=== PATIENT | male | born 1950 | race Caucasian/White ===

== ENCOUNTER 2021-02-06 10:13 | Outpatient (CLI) | payer MEDICARE, SELFPAY | END 2021-02-06 10:14 | disposition home or self-care (01) | LOC: ANHCOVIDVC 10:13 | PROVIDERS: PCP Internal Medicine | DX: Z23 Encounter for immunization (principal) | CPT/HCPCS: 0001A; 91300 ==

== ENCOUNTER 2021-02-27 10:18 | Outpatient (CLI) | payer MEDICARE, SELFPAY | END 2021-02-27 10:19 | disposition home or self-care (01) | LOC: ANHCOVIDVC 10:18 | PROVIDERS: PCP Internal Medicine | DX: Z23 Encounter for immunization (principal) | CPT/HCPCS: 0002A; 91300 ==

== ENCOUNTER 2021-04-11 08:01 | Outpatient (CLI) | payer MEDICARE, SELFPAY ==
--- NOTE | ~2021-04-11 | US_ITS ---
EXAMINATION: US art doppler w jose SY BI DATE: 04/11/2021 09:06 INDICATION: No detectable pulses at the ankles with peripheral vascular disease risk factors of diabe татьяна, hypercholesterolemia, hypertension and smoking. TECHNIQUE: Segmental pressures and plethysmographic and Doppler waveforms of the brachial and lower e xtremity arteries were obtained. COMPARISON: None. FINDINGS: Right and left brachial artery pressures of 128 mm Hg and 131 mm Hg, respectively, are concordant (no rmal difference <= 30 mmHg). The right and left high-thigh pressure indices are 1.03 and 0.44, respec tively (normal > 1.2). The right ankle-brachial index (JOMAR) is 0.64 (normal >= 0.9-1). The right great toe-brachial index (T BI) is 0.77 (normal >= 0.6-0.8). The right lower extremity segmental pressure gradients are normal (n ormal gradients <= 20-30 mmHg between adjacent levels on the same leg or the same levels on the two l egs). Arterial waveforms are biphasic with brisk systolic upstrokes throughout. The left JOMAR and TBI were unable to be determined due to no audible waveforms. The left lower extremi ty segmental pressure gradients are normal between levels throughout the left lower limb but with sig nificant gradient relative to the contralateral right lower limb with significantly decreased pressur es on the left at each level when compared with the right lower limb. The Arterial waveforms are bip hasic with brisk systolic upstrokes at the left common femoral artery with parvus and tardus waveform s in the more distal arteries with delayed upstrokes and progressive broadening and decreased heights of the systolic peaks in the more distal arteries. IMPRESSION: 1. Severe arterial occlusive disease to the left lower limb with severely decreased left high thigh p ressure index and unmeasurable left JOMAR and TBI. Based upon waveform analysis this appears to occur b etween the sites of measurement at the right common femoral artery and proximal right femoral artery. 2. Arterial occlusive disease to the right lower limb with moderately decreased right JOMAR but still n ormal TBI Reviewed, dictated and finalized at location A. IMPRESSION: 1. Severe arterial occlusive disease to the left lower limb with severely decre ased left high thigh pressure index and unmeasurable left JOMAR and TBI. Based up on waveform analysis this appears to occur between the sites of measurement at the right common femoral artery and proximal right femoral artery. 2. Arterial occlusive disease to the right lower limb with moderately decreased right JOMAR but still normal TBI
== END 2021-04-11 08:02 | disposition home or self-care (01) ==
PROVIDERS: PCP Internal Medicine; Visit Provider Podiatrist Foot & Ankle Surgery
DX: I73.9 Peripheral vascular disease, unspecified (principal)
CPT/HCPCS: 93923

== ENCOUNTER 2022-05-08 21:31 | Inpatient (IN) | payer MEDICARE, SELFPAY ==
--- NOTE | ~2022-05-08 | XR_ITS ---
EXAMINATION: XR chest 1V portable Exam Date/Time: 05/08/2022 22:23 CDT HISTORY: SOB, CHF EXACERBATION TODAY HX COPD,HTN, SMOKER Comparison: 11/04/2019. RESULT: Lines, tubes, and devices: None. Lungs and pleura: Senescent and likely emphysematous change. Cardiomediastinal silhouette: Stable cardiomediastinal silhouette. Other: No acute osseous or upper abdominal finding. IMPRESSION: No acute cardiopulmonary process. Reviewed, dictated and finalized at location K.
[2022-05-08 21:36] VITALS: BP 134/90; PULSE 123; RESP 36; TEMP 36.9; O2SAT 99
--- NOTE | 2022-05-08 21:39 | ECG_ITS ---
Measurements Intervals [place] Rate: 120 P: 72 FL: 189 QRS: -38 QRSD: 90 T: 73 QT: 303 QTc: 429 Interpretive Statements SINUS TACHYCARDIA INDETERMINATE AXIS NO PREVIOUS ECG AVAILABLE FOR COMPARISON Electronically Signed On 05-09-2022 20:31:44 CDT by Francesca Sahu M.D.
[2022-05-08 21:44] VITALS: O2SAT 99
[2022-05-08 21:47] VITALS: PULSE 128
[2022-05-08 21:48] VITALS: BP 134/90; PULSE 125; RESP 36; O2SAT 99
--- NOTE | 2022-05-08 21:49 | ED.SOB ---
HPI - SOB/Dyspnea General Chief Complaint: Shortness of Breath/Dyspnea <Opal Ledbetter MD - Last Filed: 05/08/22 22:39> Stated Complaint: resp distress, tripodding, chf overload <Opal Ledbetter MD - Last Filed: 05/08/22 22:39> Time Seen by Provider: 05/08/22 21:43 <Opal Ledbetter MD - Last Filed: 05/08/22 22:39> Source: patient and EMS <Opal Ledbetter MD - Last Filed: 05/08/22 22:39> Mode of arrival: EMS <Opal Ledbetter MD - Last Filed: 05/08/22 22:39> Limitations: no limitations <Opal Ledbetter MD - Last Filed: 05/08/22 22:39> History of Present Illness HPI Narrative: This is a 71 year old male with history of COPD and hypertension who presents for evaluation of shortness of breath. Patient reports he developed productive cough with clear sputum since noon today. He reports his cough continued to get worse and he was having shortness of breath. EMS reports patient's family found patient in respiratory distress in tripod position. Patient's oxygen saturation was 72% on room. EMS placed patient on CPAP. Patient denies chest pain, nausea, vomiting. He reports runny nose. He is unsure of fever. He denies leg swelling. <Opal Ledbetter MD - Last Filed: 05/08/22 22:39> MD elicited complaint: shortness of breath <Opal Ledbetter MD - Last Filed: 05/08/22 22:39> Pertinent past history: COPD and congestive heart failure <Opal Ledbetter MD - Last Filed: 05/08/22 22:39> Related Data Home Medications: Home Medications Medication Instructions Recorded Confirmed aspirin 81 mg tablet,delayed 81 mg PO DAILY 11/11/19 09/19/21 release (Adult Low Dose Aspirin) cholecalciferol (vitamin D3) 1,250 50,000 unit PO WEEKLY 11/11/19 09/19/21 mcg (50,000 unit) capsule ezetimibe 10 mg tablet (Zetia) 10 mg PO DAILY 11/11/19 03/13/21 sildenafil 100 mg tablet (Viagra) 100 mg PO DAILY PRN 11/11/19 03/13/21 ramipril 5 mg capsule 5 mg PO DAILY 09/06/20 09/19/21 simvastatin 40 mg tablet 40 mg PO DAILY 09/06/20 09/19/21 carvedilol 6.25 mg tablet 12.5 mg PO ONCE 09/19/21 09/19/21 rivaroxaban 2.5 mg tablet (Xarelto) 2.5 mg PO BID 09/19/21 09/19/21 <Opal Ledbetter MD - Last Filed: 05/08/22 22:39> Allergies/Adverse Reactions: Allergies Allergy/AdvReac Type Severity Reaction Status Date / Time No Known Allergies Allergy Verified 05/08/22 21:49 <Opal Ledbetter MD - Last Filed: 05/08/22 22:39> Review of Systems Review of Systems: All systems reviewed & are unremarkable except as noted in HPI and below <Opal Ledbetter MD - Last Filed: 05/08/22 22:39> Constitutional: Constitutional: Denies chills, Reports fatigue and Denies fever(s) <Opal Ledbetter MD - Last Filed: 05/08/22 22:39> ENT: Reports nasal congestion <Opal Ledbetter MD - Last Filed: 05/08/22 22:39> Cardiovascular: Cardiovascular: Denies chest pain and Denies rapid heart rate <Opal Ledbetter MD - Last Filed: 05/08/22 22:39> Respiratory: Respiratory: Reports chest congestion, Reports cough and Reports dyspnea <Opal Ledbetter MD - Last Filed: 05/08/22 22:39> Gastrointestinal: Gastrointestinal: Denies abdominal pain, Denies bloating, Denies constipation and Denies heartburn <Opal Ledbetter MD - Last Filed: 05/08/22 22:39> [facility] Past Medical History Medical History: Medical History (Updated 05/09/22 @ 02:20 by Mariella Pino MD) COPD mixed type Essential (primary) hypertension Gastro-esophageal reflux disease without esophagitis <Opal Ledbetter MD - Last Filed: 05/08/22 22:39> Surgical History Surgical History: Surgical History (Updated 05/08/22 @ 21:57 by Opal Ledbetter MD) Hx of tonsillectomy <Opal Ledbetter MD - Last Filed: 05/08/22 22:39> Family History Family History: Family History Mother Patient's mother is Father Patient
[2022-05-08 21:50] LABS: Alveolar/Arterial O2 Gradient 636.1 mmHg; Base Excess ABG -3.2 mEq/l (+/-2.0); Carboxyhemoglobin 2.5 % THb (0-2.0); Fractional Inspired Oxygen 100 %; HCO3 ABG 20.5 mEq/l (22.0-26.0); Methemoglobin ABG 0.3 %THb (0-1.5); Oxygen Content ABG 14.5 %vol (16.0-22.0); PCO2 ABG 32.8 mmHg (35.0-45.0); PO2 FiO2 Ratio Arterial Blood 0.44 %; Reduced Hemoglobin 20.6 %THb (0-5.0); Total Hemoglobin 13.5 g/dL (12.0-18.0); pH ABG 7.413 (7.350-7.450)
[2022-05-08 21:52] LABS: Oxygen Saturation ABG 81.2 % (95.0-100.0); PO2 ABG 44.1 mmHg (80.0-100.0)
[2022-05-08 21:53] LABS: Device NON-REBREATHER MASK; Modified Allen's Test Pass; Oxyhemoglobin 76.6 % THb (90.0-100.0); Site Drawn LEFT RADIAL
--- NOTE | 2022-05-08 21:53 | ED.SOB ---
HPI - SOB/Dyspnea General Chief Complaint: Shortness of Breath/Dyspnea Stated Complaint: resp distress, tripodding, chf overload Time Seen by Provider: 05/08/22 21:43 Source: patient and EMS Mode of arrival: EMS Limitations: no limitations Related Data Home Medications Medication Instructions Recorded Confirmed aspirin 81 mg tablet,delayed 81 mg PO DAILY 11/11/19 09/19/21 release (Adult Low Dose Aspirin) cholecalciferol (vitamin D3) 1,250 50,000 unit PO WEEKLY 11/11/19 09/19/21 mcg (50,000 unit) capsule ezetimibe 10 mg tablet (Zetia) 10 mg PO DAILY 11/11/19 03/13/21 sildenafil 100 mg tablet (Viagra) 100 mg PO DAILY PRN 11/11/19 03/13/21 ramipril 5 mg capsule 5 mg PO DAILY 09/06/20 09/19/21 simvastatin 40 mg tablet 40 mg PO DAILY 09/06/20 09/19/21 carvedilol 6.25 mg tablet 12.5 mg PO ONCE 09/19/21 09/19/21 rivaroxaban 2.5 mg tablet (Xarelto) 2.5 mg PO BID 09/19/21 09/19/21 Allergies Allergy/AdvReac Type Severity Reaction Status Date / Time No Known Allergies Allergy Verified 05/08/22 21:49 [facility] Family History Family History Mother Patient's mother is Father Patient's father is Sibling Family history of malignant neoplasm of ovary Social History Social History Smoking packs per day: 0.5 Smoking cigarettes per day: 10.0 Years smoked: 40 Smoking pack-years: 20.00 Smoking status: Current every day smoker Tobacco type: cigarettes Second hand tobacco smoke exposure: No Alcohol intake: current Course Vital Signs Vital signs: Vital Signs Temperature 98.5 F 05/08/22 21:36 Pulse Rate 123 H 05/08/22 21:36 Respiratory Rate 36 H 05/08/22 21:36 Blood Pressure 134/90 05/08/22 21:36 Pulse Oximetry 99 05/08/22 21:36 Oxygen Delivery BiPAP 05/08/22 21:36 Oxygen Flow Rate 10 05/08/22 21:36 Temperature 98.5 F 05/08/22 21:36 Pulse Rate 125 H 05/08/22 21:48 Respiratory Rate 36 H 05/08/22 21:48 Blood Pressure 134/90 05/08/22 21:48 Pulse Oximetry 99 05/08/22 21:48 Oxygen Delivery BiPAP 05/08/22 21:44 Oxygen Flow Rate 10 05/08/22 21:44 MDM - SOB/Dyspnea Lab Data Labs: Lab Results 05/08/22 Range/Units 21:48 Methemoglobin 0.3 (0-1.5) %THb ABG Data ABG results: 05/08/22 21:48 ABG pH 7.413 ABG pCO2 32.8 L ABG PO2/FiO2 Ratio 0.44 ABG HCO3 20.5 L ABG O2 Content 14.5 L ABG Base Excess -3.2 A-a Gradient 636.1 Carboxyhemoglobin 2.5 H Reduced Hemoglobin 20.6 H Total Hemoglobin 13.5 FiO2 100 Discharge Plan Discharge Prescriptions: No Action aspirin [Adult Low Dose Aspirin] 81 mg tablet,delayed release (DR/EC) 81 mg PO DAILY sildenafil [Viagra] 100 mg tablet 100 mg PO DAILY PRN cholecalciferol (vitamin D3) 50,000 unit capsule 50,000 unit PO WEEKLY ezetimibe [Zetia] 10 mg tablet 10 mg PO DAILY carvedilol 6.25 mg tablet 12.5 mg PO ONCE ramipril 5 mg capsule 5 mg PO DAILY simvastatin 40 mg tablet 40 mg PO DAILY Xarelto 2.5 mg tablet 2.5 mg PO BID levocetirizine [Xyzal] 5 mg tablet 5 mg PO DAILY Qty: 90 1RF budesonide-formoterol [Symbicort] 160-4.5 mcg/actuation HFA aerosol inhaler 2 puff inhalation Q12H Qty: 10.2 3RF betamethasone valerate 0.1 % cream 1 applic TOPICAL BID Qty: 45 1RF Breo Ellipta 200-25 mcg/dose blister with device 1 inh inhalation DAILY Qty: 60 1RF esomeprazole magnesium [Nexium] 40 mg capsule,delayed release(DR/EC) 40 mg PO DAILY Qty: 30 5RF Follow-up/Referrals: Victoriano Durand, [Primary Care Provider] -
[2022-05-08 21:56] LABS: Basophils Absolute Auto 0.1 K/mm3 (0.0-0.1); Basophils Percent Auto 0.4 % (0.2-1.2); Eosinophils Absolute Auto 0.1 K/mm3 (0-0.3); Eosinophils Percent Auto 0.3 % (0-4.4); Hematocrit 37.1 % (42.0-52.0); Hemoglobin 12.4 g/dL (14.0-18.0); Immature Granulocyte Absolute 0.15 K/mm3 (0.00-0.031); Immature Granulocyte Percent A 0.7 % (0-0.5); Lymphocytes Absolute Auto 1.06 K/mm3 (0.9-3.2); Lymphocytes Percent Auto 5.1 % (18.3-44.2); Mean Corpuscular HGB Conc 33.4 g/dl (32-36); Mean Corpuscular Hemoglobin 31.9 pg (26-34); Mean Corpuscular Volume 95.4 fl (80-100); Mean Platelet Volume 8.9 fl (7.4-10.4); Monocytes Absolute Auto 1.6 K/mm3 (0.1-0.6); Monocytes Percent Auto 7.7 % (2.6-8.5); Neutrophils Absolute Auto 17.8 K/mm3 (1.3-6.7); Neutrophils Percent Auto 85.8 % (45.5-73.1); Platelet Count Result 445 k/mm3 (150-375); Red Blood Count 3.89 M/mm3 (4.6-6.20); Red Cell Distribution Width 13.4 % (11.5-14.5); White Blood Count 20.8 K/mm3 (4.5-10.0)
[2022-05-08 21:59] VITALS: PULSE 112; RESP 28
[2022-05-08] MEDS: ALBUTEROL SULFATE NEB 2.5 MG/3 ML INH 10 MG INHALATION (22:00)
[2022-05-08] MEDS: IPRATROPIUM BR 0.02% INH SOLN 0.5 MG/2.5 ML VIAL 1 MG INHALATION (22:00)
[2022-05-08 22:06] LABS: INR 1.1; Prothrombin Time 13.9 Seconds (11.1-14.7)
[2022-05-08 22:07] LABS: Alanine Aminotransferase 11 U/L (6-50); Albumin Level 4.4 g/dL (3.5-5.1); Alkaline Phosphatase 90 U/L (38-126); Anion Gap 7 mmol/L (8-16); Aspartate Amino Transferase 20 U/L (17-59); Bilirubin,Total 0.9 mg/dL (0.2-1.3); Blood Urea Nitrogen 9 mg/dL (9-20); Calcium 9.4 mg/dL (8.4-10.2); Carbon Dioxide 26 mmol/L (22-30); Chloride 94 mmol/L (98-107); Estimated CRCL calculation 68 ml/min; Estimated Glomerular Filt Rate > 60; Glucose 130 mg/dL (65-110); Partial Thromboplastin Time 36.2 SECONDS (22.3-36.8); Sodium 127 mmol/L (137-145)
[2022-05-08 22:07] LABS: Lactic Acid Reflex 1.5 mmol/L (0.7-2.0)
[2022-05-08 22:15] LABS: NT Pro B Type Natriuretic Pept 299 pg/mL (5-100)
[2022-05-08] MEDS: methylPREDNISolone SOD SUCC 125 MG VIAL IV PUSH (22:17)
[2022-05-08 22:38] LABS: Troponin I < 0.012 ng/mL (0.000-0.034)
[2022-05-08 22:38] LABS: SARS-CoV-2 RNA PCR Negative
[2022-05-08] MEDS: LACTATED RINGERS 1,000 ML 999 ML IV CONT (22:53)
[2022-05-08 23:12] VITALS: PULSE 105; RESP 21
[2022-05-09] VITALS (16 sets, daily range): BP systolic 112–131; BP diastolic 53–66; PULSE 76–113; RESP 15–23; TEMP 36.7–37.1; O2SAT 93–100; BMI 18.3
[2022-05-09 01:29] LABS: Influenza A QL RT-PCR Negative (Negative); Influenza B QL RT-PCR Negative (Negative)
[2022-05-09] MEDS: ALBUTEROL SULFATE NEB 2.5 MG/3 ML INH 5 MG INHALATION ×4 (01:58→19:27)
[2022-05-09] MEDS: IPRATROPIUM BR 0.02% INH SOLN 0.5 MG/2.5 ML VIAL INHALATION ×4 (01:58→19:27)
--- NOTE | 2022-05-09 02:25 | ADMGEN ---
This patient, Nikita Meyers, was admitted to [address] [place] [address] Room [facility] at 0225. Patient/family oriented to hospital policies and general routines including ID bracelet, bed and alarms, visiting hours, pain management, procedures, bathroom and other care routines, personal items, smoking policy, room service/diet, and visiting hours. Information on how to activate the Rapid Response Team has been discussed. Patient/Family are encouraged to report perceived risks to care and to ask questions if they do not understand what they are told or what they should do.
[2022-05-09] MEDS: methylPREDNISolone SOD SUCC 125 MG VIAL 60 MG IV PUSH (05:30)
--- NOTE | 2022-05-09 10:24 | PM.IMHP ---
H&P: HPI History of Present Illness Date/Time: 05/09/22 10:24 Chief Complaint: Shortness of breath Narrative: Nikita Meyers is a 71 yo white male with medical history of CAD s/p 4 cardiac stents in the past, COPD non-oxygen dependent, GERD, and hypertension. He presented to the ED for evaluation of sudden shortness of breath. He reports this started yesterday afternoon prior to presenting to the ED, which prompted him to call EMS. He was tachypnic RR 36 bpm and tachycardic HR 123 bpm upon presentation. His spO2 was noted to be 72% on room air. He denies c/o fever, chills, diaphoresis, abdominal pain, N/V/D, dizziness or syncope. He has intermittent burning chest pain that he attributes to acid reflex, cough with clear sputum. He denies orthopnea, paroxysmal nocturnal dyspnea, or lower extremity edema. Lab work was significant for WBC 20.8 with left shift, pO2 44 with normal pH, sodium 127, chloride 94, glucose 130 and pro-BNP 299. CXR showed emphysematous changes but no acute process. Of note, he reports a 20-30 lb weight loss in the past 30 months. Review of Systems Review of Systems: All systems reviewed & are unremarkable except as noted in HPI and below Constitutional: Comments: 20-30 lb weight loss in the past 3 months Respiratory: Comments: cough, clear sputum PMFSH Past Medical History Medical History (Updated 05/09/22 @ 14:31 by Miranda Linder APRN) COPD mixed type Essential (primary) hypertension Gastro-esophageal reflux disease without esophagitis Surgical History Surgical History (Updated 05/09/22 @ 10:26 by Miranda Linder APRN) H/O wrist surgery History of ankle surgery History of hernia repair History of PTCA 4 heart stents Hx of tonsillectomy Family History Family History Mother Patient's mother is Father Patient's father is Sibling Family history of malignant neoplasm of ovary Grandparent Acute myocardial infarction Social History Social History (Updated 05/09/22 @ 14:00 by Miranda Linder APRN) Smoking packs per day: 0.75 Smoking cigarettes per day: 15.0 Years smoked: 58 Smoking pack-years: 43.50 Smoking status: Current every day smoker Tobacco type: cigarettes Second hand tobacco smoke exposure: Yes ( also smokes) Additional smoking assessment comments: smoked up to 3 packs per day; decreased intake to 3/4 pack in the past 12mo Alcohol intake: current Drinks per week: 42 Alcohol use details: 5-6 beers per night Substance use: never Living arrangements: with family Additional living arrangements comments: Lives with and son Occupation/Education: retired Gender identity (if verbalized by the patient): Male Spiritual care concerns: No Meds Home Medications and Allergies Home Medications Medication Instructions Recorded Confirmed Type aspirin 81 mg tablet,delayed 81 mg PO DAILY 11/11/19 05/09/22 History release (Adult Low Dose Aspirin) ramipril 5 mg capsule 5 mg PO DAILY 09/06/20 05/09/22 History simvastatin 40 mg tablet 40 mg PO DAILY 09/06/20 05/09/22 History carvedilol 6.25 mg tablet 6.25 mg PO BID 09/19/21 05/09/22 History rivaroxaban 2.5 mg tablet (Xarelto) 2.5 mg PO DAILY 09/19/21 05/09/22 History esomeprazole magnesium 40 mg 40 mg PO DAILY #30 caps 04/17/22 05/09/22 Rx capsule,delayed release (Nexium) cholecalciferol (vitamin D3) 125 125 mcg PO DAILY 05/09/22 05/09/22 History mcg (5,000 unit) capsule fluticasone 250 mcg-salmeterol 50 1 inh inhalation BID 05/09/22 05/09/22 History mcg/dose blistr powdr for inhalation (Advair Diskus) fluticasone furoate 200 1 inh inhalation DAILY 05/09/22 05/09/22 History mcg-vilanterol 25 mcg/dose inhalation powder (Breo Ellipta) Allergies Allergy/AdvReac Type Severity Reaction Status Date / Time No Known Allergies Allergy Verified 05/08/22 21:49 V
[2022-05-09] MEDS: levoFLOXacin 750 MG TABLET PO (16:15)
[2022-05-09] MEDS: SODIUM CHLORIDE 0.9% IV 1,000 ML 50 ML IV CONT (16:16)
[2022-05-09 17:54] LABS: Sodium Urine Random 26 meq/L
[2022-05-09] MEDS: guaiFENesin 12 HR 600 MG TABCR PO (20:52)
[2022-05-09] MEDS: carvediloL 6.25 MG TABLET PO (20:52)
[2022-05-09] MEDS: methylPREDNISolone SOD SUCC 40 MG VIAL IV PUSH (20:52)
[2022-05-10] VITALS (16 sets, daily range): BP systolic 106–130; BP diastolic 58–68; PULSE 76–93; RESP 16–18; TEMP 36.6–37; O2SAT 93–100
[2022-05-10] MEDS: ALBUTEROL SULFATE NEB 2.5 MG/3 ML INH 5 MG INHALATION ×4 (01:50→22:32)
[2022-05-10] MEDS: IPRATROPIUM BR 0.02% INH SOLN 0.5 MG/2.5 ML VIAL INHALATION ×4 (01:50→22:32)
[2022-05-10 06:51] LABS: Basophils Percent Auto 0.1 % (0.2-1.2); Hematocrit 34.5 % (42.0-52.0); Hemoglobin 11.2 g/dL (14.0-18.0); Immature Granulocyte Absolute 0.13 K/mm3 (0.00-0.031); Immature Granulocyte Percent A 0.7 % (0-0.5); Lymphocytes Absolute Auto 0.75 K/mm3 (0.9-3.2); Mean Corpuscular HGB Conc 32.5 g/dl (32-36); Mean Corpuscular Hemoglobin 31.5 pg (26-34); Mean Corpuscular Volume 96.9 fl (80-100); Mean Platelet Volume 9.1 fl (7.4-10.4); Monocytes Absolute Auto 1.2 K/mm3 (0.1-0.6); Monocytes Percent Auto 6.3 % (2.6-8.5); Neutrophils Absolute Auto 16.8 K/mm3 (1.3-6.7); Neutrophils Percent Auto 88.9 % (45.5-73.1); Platelet Count Result 430 k/mm3 (150-375); Red Blood Count 3.56 M/mm3 (4.6-6.20); Red Cell Distribution Width 13.3 % (11.5-14.5); White Blood Count 18.9 K/mm3 (4.5-10.0)
[2022-05-10 07:09] LABS: Anion Gap 7 mmol/L (8-16); Blood Urea Nitrogen 15 mg/dL (9-20); Calcium 9.5 mg/dL (8.4-10.2); Carbon Dioxide 25 mmol/L (22-30); Chloride 101 mmol/L (98-107); Estimated CRCL calculation 78 ml/min; Estimated Glomerular Filt Rate > 60; Glucose 143 mg/dL (65-110); Potassium 3.9 mmol/L (3.4-5.0); Sodium 133 mmol/L (137-145)
[2022-05-10 08:27] LABS: Anisocytosis 1+ (NORMAL); Crenated RBC 1+ (NORMAL); Platelet Estimate Increased (Adequate)
[2022-05-10] MEDS: ENOXAPARIN 40 MG/0.4 ML SYRINGE SUB-Q (08:27)
[2022-05-10] MEDS: carvediloL 6.25 MG TABLET PO ×2 (08:28→20:49)
[2022-05-10] MEDS: levoFLOXacin 750 MG TABLET PO (08:29)
[2022-05-10] MEDS: methylPREDNISolone SOD SUCC 40 MG VIAL IV PUSH ×2 (08:29→20:49)
[2022-05-10] MEDS: guaiFENesin 12 HR 600 MG TABCR PO ×2 (08:29→20:49)
[2022-05-10] MEDS: CHOLECALCIFEROL 1,000 UNITS TABLET 5000 UNITS PO (08:29)
[2022-05-10] MEDS: PANTOPRAZOLE 40 MG TABLET PO (10:04)
[2022-05-10] MEDS: SIMVASTATIN 20 MG TABLET 40 MG PO (10:04)
[2022-05-10] MEDS: ramipriL 5 MG CAPSULE PO (10:04)
[2022-05-10] MEDS: ASPIRIN 81 MG ENTERIC TABLET PO (10:04)
--- NOTE | 2022-05-10 14:52 | PM.IMPN ---
Progress Note: A&P Assessment and Plan (1) Acute respiratory failure: Qualifiers: Respiratory failure complication: hypoxia Qualified Code(s): J96.01 - Acute respiratory failure with hypoxia Code(s): J96.00 - Acute respiratory failure, unspecified whether with hypoxia or hypercapnia Status: Acute Assessment and Plan: - continue supplemental O2 to keep sats>90%. Wean as tolerated. If unable to wean then will plan for 6 minute walk study prior to discharge. - continue management as below (2) Acute exacerbation of chronic obstructive pulmonary disease: Code(s): J44.1 - Chronic obstructive pulmonary disease with (acute) exacerbation Status: Acute Assessment and Plan: - continue systemic steroids BID, duonebs scheduled, mucinex BID and incentive spirometry. - given his leukocytosis, will empirically treat with antibiotics x 5 days. - counseled to quit smoking. - Patient reports taking Advair at home typically, but was recently given samples of Breo by his PCP. He may benefit from triple LAMA/LABA/ICS therapy at discharge. - Consider referral to Pulmonary Rehab at discharge. (3) Abnormal weight loss: Code(s): R63.4 - Abnormal weight loss Status: Acute Assessment and Plan: - Consult dietary. - Ensure BID between meals. Likely secondary to severe COPD. - given his smoking history, lung cancer screening with LDCT is recommended. (4) Hyponatremia: Code(s): E87.1 - Hypo-osmolality and hyponatremia Status: Acute Assessment and Plan: - Improved with IV fluids. Sodium 133 today. Neuro intact. Continue to monitor. \ (5) Cigarette smoker: Code(s): F17.210 - Nicotine dependence, cigarettes, uncomplicated Status: Chronic Assessment and Plan: - Counseled to quit. Nicotine patch while inpatient. We also discussed Chantix versus Wellbutrin. (6) Atherosclerotic heart disease of nulato coronary artery without angina pectoris: Code(s): I25.10 - Atherosclerotic heart disease of n[place] coronary artery without angina pectoris Status: Chronic Assessment and Plan: -continue baby aspirin, beta-renee, LEOBARDO-I, statin. Hold Xarelto while on lovenox. Time Spent With Patient Time with patient: 15 - 25 minutes Subjective Date/time seen: 05/10/22 14:52 Patient is a 71 yo male with h/o CAD, COPD, GERD and HTN admitted for acute COPD exacertbation, hypoxia and presumed pneumonia. Patient is sitting up in the bed. He reports his breathing is improved today. He had difficulty sleeping, however, due to outside noise. He denies chest pain, hemoptysis, abd pain, N/V/D or constipation. Nursing reports he desaturated to 83% on room air with ambulation and c/o dyspnea. Review of Systems Review of Systems: All systems reviewed & are unremarkable except as noted in HPI and below Exam Narrative: General: No acute distress. Nontoxic in appearance. Thin, older adult male sitting up in the bed. O2 1L NC. HEENT: NC/AT, PERRL, EOMI. Sclerae anicteric. Oral mucosa moist. Neck: Supple. Respiratory: Respirations regular and unlabored. Lungs diminished in all gibbons bilaterally with faint fine crackles bibasilar lobes. No retractions or accessory muscle use. Cardiovascular: Regular rate and rhythm with S1-S2. No murmurs, gallops or rubs. Gastrointestinal: Abdomen is soft, flat, nontender, and nondistended with positive bowel sounds. Skin: Warm and dry. No rash or lesions on limited exam. Extremities: No cyanosis, clubbing, or edema. Radial and pedal pulses intact. No edema. Neurological: Alert and oriented. Cranial nerves 2-12 are grossly intact. Speech clear and appropriate. Full strength all extremities 5/5. Psychiatric: Normal affect. Appropriate mood. Objective Data Vital Signs Vital Signs: Vital Signs - 24 hr 05/09/22 19:29 05/09/22 19:30 05/09/22 19:43 Temperature Pulse Rate 94 95 Respir
[2022-05-11] MEDS: ALBUTEROL SULFATE NEB 2.5 MG/3 ML INH 5 MG INHALATION (02:11)
[2022-05-11 02:12] VITALS: PULSE 73; RESP 16
[2022-05-11] MEDS: IPRATROPIUM BR 0.02% INH SOLN 0.5 MG/2.5 ML VIAL INHALATION ×2 (02:12→09:56)
[2022-05-11 02:21] VITALS: PULSE 77; RESP 16
[2022-05-11 06:13] LABS: Basophils Percent Auto 0.1 % (0.2-1.2); Eosinophils Percent Auto 0.1 % (0-4.4); Hematocrit 33.7 % (42.0-52.0); Hemoglobin 11.2 g/dL (14.0-18.0); Immature Granulocyte Absolute 0.12 K/mm3 (0.00-0.031); Immature Granulocyte Percent A 0.8 % (0-0.5); Lymphocytes Absolute Auto 0.89 K/mm3 (0.9-3.2); Lymphocytes Percent Auto 5.7 % (18.3-44.2); Mean Corpuscular HGB Conc 33.2 g/dl (32-36); Mean Corpuscular Hemoglobin 31.8 pg (26-34); Mean Corpuscular Volume 95.7 fl (80-100); Monocytes Absolute Auto 1.1 K/mm3 (0.1-0.6); Monocytes Percent Auto 7.3 % (2.6-8.5); Neutrophils Absolute Auto 13.5 K/mm3 (1.3-6.7); Platelet Count Result 458 k/mm3 (150-375); Red Blood Count 3.52 M/mm3 (4.6-6.20); Red Cell Distribution Width 13.5 % (11.5-14.5); White Blood Count 15.7 K/mm3 (4.5-10.0)
[2022-05-11 06:16] VITALS: BP 127/63; PULSE 74; RESP 20; TEMP 36.7; O2SAT 96
[2022-05-11 06:26] LABS: Anion Gap 5 mmol/L (8-16); Blood Urea Nitrogen 18 mg/dL (9-20); Calcium 9.5 mg/dL (8.4-10.2); Carbon Dioxide 24 mmol/L (22-30); Chloride 105 mmol/L (98-107); Estimated CRCL calculation 78 ml/min; Estimated Glomerular Filt Rate > 60; Glucose 131 mg/dL (65-110); Potassium 4.1 mmol/L (3.4-5.0); Sodium 134 mmol/L (137-145)
[2022-05-11] MEDS: CHOLECALCIFEROL 1,000 UNITS TABLET 5000 UNITS PO (08:59)
[2022-05-11] MEDS: SIMVASTATIN 20 MG TABLET 40 MG PO (08:59)
[2022-05-11] MEDS: ramipriL 5 MG CAPSULE PO (08:59)
[2022-05-11 09:00] VITALS: PULSE 78
[2022-05-11] MEDS: ENOXAPARIN 40 MG/0.4 ML SYRINGE SUB-Q (09:00)
[2022-05-11] MEDS: carvediloL 6.25 MG TABLET PO (09:00)
[2022-05-11] MEDS: PANTOPRAZOLE 40 MG TABLET PO (09:00)
[2022-05-11] MEDS: guaiFENesin 12 HR 600 MG TABCR PO (09:00)
[2022-05-11] MEDS: ASPIRIN 81 MG ENTERIC TABLET PO (09:00)
[2022-05-11] MEDS: predniSONE 20 MG TABLET 40 MG PO (09:04)
[2022-05-11 09:50] VITALS: PULSE 78; RESP 16
[2022-05-11] MEDS: ALBUTEROL SULFATE NEB 2.5 MG/0.5 ML INH 5 MG (09:56)
[2022-05-11 09:59] VITALS: PULSE 71; RESP 16; O2SAT 94
--- NOTE | 2022-05-11 16:40 | PM.DS ---
DS: Admitting Diagnosis Discharge Date 05/11/22 1131 Admitting Diagnosis Acute respiratory failure with hypoxia Acute COPD exacerbation Abnormal weight loss Hyponatremia Nicotine dependence DS: Discharge Diagnosis Discharge Diagnosis (1) Acute respiratory failure: Qualifiers: Respiratory failure complication: hypoxia Qualified Code(s): J96.01 - Acute respiratory failure with hypoxia Code(s): J96.00 - Acute respiratory failure, unspecified whether with hypoxia or hypercapnia Status: Acute (2) Acute exacerbation of chronic obstructive pulmonary disease: Code(s): J44.1 - Chronic obstructive pulmonary disease with (acute) exacerbation Status: Acute (3) Hyponatremia: Code(s): E87.1 - Hypo-osmolality and hyponatremia Status: Acute (4) Abnormal weight loss: Code(s): R63.4 - Abnormal weight loss Status: Acute (5) Cigarette smoker: Code(s): F17.210 - Nicotine dependence, cigarettes, uncomplicated Status: Chronic DS: Summary Hospital Course Reason for hospitalization: Shortness of breath Hospital Course: Nikita Meyers is a 71 yo white male with medical history of CAD s/p 4 cardiac stents in the past, COPD non-oxygen dependent, GERD, and hypertension. He presented to the ED for evaluation of sudden shortness of breath. He reports this started the afternoon on the day of admission and was severe, prompting him to call EMS. He was tachypnic RR 36 bpm and tachycardic HR 123 bpm upon presentation. His spO2 was noted to be 72% on room air. He denied c/o fever, chills, diaphoresis, abdominal pain, N/V/D, dizziness or syncope. He had intermittent burning chest pain that he attributes to acid reflex, cough with clear sputum. He denied orthopnea, paroxysmal nocturnal dyspnea, or lower extremity edema. Lab work was significant for WBC 20.8 with left shift, pO2 44 with normal pH, sodium 127, chloride 94, glucose 130 and pro-BNP 299. CXR showed emphysematous changes but no acute process. Of note, he reports a 20-30 lb weight loss in the past 30 months.? Patient was referred for observation for further management of acute COPD exacerbation. He required supplemental oxygen up to 2 L per nasal cannula to keep oxygen saturations greater than 90%. He was treated with IV Solu-Medrol Q 8, scheduled bronchodilators, Mucinex and empiric Levaquin 750 mg p.o. daily given worsening dyspnea changes in sputum and leukocytosis upon admission. Additionally he was treated with IV normal saline for approximately 24 hours due to low sodium 127 on admission thought to be secondary to poor oral intake and dehydration. His sodium level did increase following IV fluids and remained stable at discharge. Dietitian was consulted due to patient's report of significant weight loss unplanned. Ensure supplements was recommended and discussed repeatedly with the patient. He was also counseled to eat small frequent high-calorie meals. Systemic steroids were weaned to prednisone 40 mg once daily and was continued at discharge to complete a total of 5 days of oral prednisone. He was also discharged on an additional 3 days of oral Levaquin. Maintenance inhalers were changed to triple therapy Trelegy 1 puff daily with p.r.n. albuterol HFA 1-2 puffs q.4-6 hours p.r.n. patient was weaned to room air with stable SpO2 at rest, however on 05/10, he was noted to desaturate to 84% on room air with ambulation. The following day on 05/11 patient reported feeling significantly better and ambulated in the hallway with SpO2 93-96% on room air. No signs of dyspnea were noted. Patient may benefit from pulmonary rehab to increase endurance. He was counseled on medications, when to seek further care, and instructed to follow-up with PCP. Patient was discharged home with his in stable condition. Patient was repeatedly counseled on smoking cessation throughout his hospital stay. Additionally given his unplanned weight loss and ext
[2022-05-12 04:13] LABS: Osmolality, Urine 614 mOsm/kg (50-1200)
== END 2022-05-11 12:00 | disposition home or self-care (01) | DRG 190 ==
LOC: ANHED 22:21 → ANH3MED 05-09 02:26
PROVIDERS: General Practice; Admitting Provider Internal Medicine; Emergency Provider Emergency Medicine; PCP Internal Medicine; Visit Provider Nurse Practitioner Family
DX: J44.1 Chronic obstructive pulmonary disease with (acute) exacerbation (principal); J96.01 Acute respiratory failure with hypoxia; E87.1 Hypo-osmolality and hyponatremia; T50.995A Adverse effect of other drugs, medicaments and biological substances, initial encounter; Z20.822 Contact with and (suspected) exposure to COVID-19; R63.4 Abnormal weight loss; E86.0 Dehydration; F17.210 Nicotine dependence, cigarettes, uncomplicated; I25.10 Atherosclerotic heart disease of native coronary artery without angina pectoris; K21.9 Gastro-esophageal reflux disease without esophagitis; I10 Essential (primary) hypertension; D72.829 Elevated white blood cell count, unspecified; Z95.5 Presence of coronary angioplasty implant and graft
CPT/HCPCS: 36415; 36600; 71045; 80048; 80053; 82375; 82805; 83050; 83605; 83880; 83935; 84300; 84484; 85025; 85610; 85730; 87040; 87502; 93005; 94640; 96361; 96374; 99285; A9270; C9803; J1650; J2920; J2930; J7030; J7120; J7512; U0003; U0005

== ENCOUNTER 2022-06-12 10:09 | Outpatient (CLI) | payer MEDICARE, SELFPAY ==
--- NOTE | ~2022-06-12 | CT_ITS ---
EXAMINATION: CT lung screening DATE: 06/12/2022 10:50 INDICATION: Screening. Personal history of tobacco dependence. TECHNIQUE: Computed tomography (CT) of the chest was performed without intravenous contrast. The dose -length product was 72.29 mGy-cm. Automated exposure control and iterative reconstruction technique w ere employed. COMPARISON: None FINDINGS: Heart size normal. There is atherosclerosis of the aorta and coronary arteries. No signific ant pleural or pericardial effusion. No thoracic lymphadenopathy. There is a centrally calcified righ t upper lobe nodule measuring 8 mm, consistent with calcified granuloma. There is a smaller calcified granuloma in the right upper lobe measuring 4 mm. There is moderate emphysema. There is a 5 mm right middle lobe nodule, image 106. There are smaller pleural-based nodules in the left upper lobe [facility]. There is a 3 mm left lower lobe nodule at the pleural surface. There is moderate thoracic spon dylosis. Accentuated thoracic kyphosis. No acute osseous abnormality. IMPRESSION: 1. Lung-RADS category 2: Benign appearance or behavior. Continue annual screening with noncontrast lo w-dose chest CT in 12 months. Reviewed, dictated and finalized at location A. IMPRESSION: 1. Lung-RADS category 2: Benign appearance or behavior. Continue annual screeni ng with noncontrast low-dose chest CT in 12 months.
== END 2022-06-12 10:10 | disposition home or self-care (01) ==
LOC: ANHIMG 10:10
PROVIDERS: PCP Internal Medicine; Visit Provider Internal Medicine
DX: Z12.2 Encounter for screening for malignant neoplasm of respiratory organs (principal); Z87.891 Personal history of nicotine dependence
CPT/HCPCS: 71271

== ENCOUNTER 2022-08-29 13:23 | Outpatient (CLI) | payer MEDICARE, SELFPAY ==
--- NOTE | 2022-08-30 06:54 | WPDSIXMINUTE ---
Six Minute Walk Procedure Procedure Performed Pulmonary Stress Test (6 min walk) Six Minute Walk Six Minute Walk: This is a 6 minute walk test. The test was performed and interpreted in accordance with the 2014 ERS/ATS task force guidelines. Patient walks using a walker. Findings: The patient's resting room air oxygen saturation measured by pulse oximetry was 97% and heart rate was 93 bpm. Patient ambulated for 183 meters and oxygen saturation remained 99 to 100%. Heart rate at the end of the study was 106 bpm. The patient did not qualify for supplemental oxygen at rest or with ambulation. There are no prior studies for comparison.
--- NOTE | 2022-08-30 06:56 | WPDPFTINT ---
PFT Procedure Performed PFT Procedure Performed Spirometry with Pre/Post Bronchodilator Plethysmography (Lung Vol) Diffusing Cap (DLCO) Flow Vol Loop PFT Interpretation This is a pulmonary function test with pre and post-bronchodilator spirometry, plethysmography and diffusing capacity. The test was performed and results interpreted in accordance with the 2019 and 2005 ATS/ERS Task Force guidelines respectively using the Global Lung Function Initiative-2012 reference equations. Patient demonstrated good effort and cooperation. Reproducibility criteria were met. The quality of the pre bronchodilator spirometry maneuver was Grade A and post bronchodilator spirometry maneuver was Grade B. Findings: Spirometry: There is decreased maximal expiratory airflow at all lung volumes with concave expiratory flow tracing. The contour the inspiratory flow tracing is normal. The pre bronchodilator FVC is 2.29 L, 57% predicted. The pre bronchodilator FEV1 is 1.03 L, 34% predicted. The pre bronchodilator FEV1: FVC ratio is 45%. The post bronchodilator FVC is 2.51 L, representing a 10% increase. The post bronchodilator FEV1 is 1.01 L, representing a 2% decrease. The post bronchodilator FEV1: FVC ratio is 40%. Plethysmography: The total lung capacity 6.54 L, 98% predicted. Functional residual capacity is 4.75 L, 135% predicted. The residual volume is 4.09 L, 174% predicted. Diffusing capacity: The diffusing capacity unadjusted for hemoglobin and carboxyhemoglobin is 8.8, 35% predicted. The diffusing capacity adjusted for alveolar volume is 1.91, 47% predicted. In comparison to previous pulmonary function test on 07/10/2017 the post bronchodilator FVC is unchanged from 2.90 L to 2.51 L. The post bronchodilator FEV1 is decreased from 1.40 L to 1.01 L. The total lung capacity is decreased from 8.25 L to 6.54 L. The functional residual capacity is decreased from 5.98 L to 4.75 L. The residual volume is decreased from 4.86 L to 4.09 L. The diffusing capacity unadjusted for hemoglobin and carboxyhemoglobin is decreased from 15.0 to 8.8. The diffusing capacity adjusted for alveolar volume is decreased from 3.34 to 1.91 Impression: There is a very severe obstructive abnormality without significant improvement after inhaling a single dose of albuterol. The increase in residual volume is consistent with air trapping from an obstructive abnormality. The diffusing capacity unadjusted for hemoglobin and carboxyhemoglobin is severely decreased and remains moderately decreased when adjusted for alveolar volume. in comparison to previous pulmonary function test on 07/10/2017 there has been a greater than anticipated time dependent decrease in FEV1, total lung capacity, functional residual capacity, residual volume and diffusing capacity with no change in the FVC. Clinical correlation recommended.
== END 2022-08-29 13:24 | disposition home or self-care (01) ==
LOC: ANHPFT 13:24
PROVIDERS: PCP Internal Medicine; Visit Provider Nurse Practitioner Family
DX: J44.9 Chronic obstructive pulmonary disease, unspecified (principal)
CPT/HCPCS: 94060; 94618; 94726; 94729

== ENCOUNTER 2022-12-16 09:34 | Outpatient (CLI) | payer MEDICARE, SELFPAY ==
--- NOTE | ~2022-12-16 | US_ITS ---
EXAMINATION: US aorta [facility] DATE: 12/16/2022 10:56 OCEAN EXPORT ACCOUNT MANAGER INDICATION: Smoking history. Hypertension. High cholesterol. TECHNIQUE: Grayscale, color Doppler, and pulsed Doppler images of the aorta and common iliac arteries were obtained. COMPARISON: Ultrasound dated 10/30/2016. FINDINGS: The proximal aorta measures 1.9 cm greatest dimension. The mid aorta measures 1.4 cm greatest dimensi on. The distal aorta measures 1.3 cm greatest dimension. The right common internal iliac artery measu res 6 mm. The left common iliac artery measures 5 mm. IMPRESSION: 1. Normal caliber aorta without aneurysm. Reviewed, dictated and finalized at location A. N EXPORT ACCOUNT MANAGER
== END 2022-12-16 09:35 | disposition home or self-care (01) ==
PROVIDERS: PCP Internal Medicine; Visit Provider Internal Medicine Cardiovascular Disease
DX: Z72.0 Tobacco use (principal)
CPT/HCPCS: 76706

== ENCOUNTER 2023-05-09 12:33 | Inpatient (IN) | payer MEDICARE, OTHER, SELFPAY ==
[2023-05-09] VITALS (40 sets, daily range): BP systolic 103–151; BP diastolic 48–84; PULSE 62–112; RESP 16–22; TEMP 36.2–37.2; O2SAT 96–100; BMI 17.2
--- NOTE | ~2023-05-09 | US_ITS ---
EXAMINATION: US venous doppler [facility] DATE: 05/09/2023 21:52 INDICATION: Bilateral lower limb swelling TECHNIQUE: Barrios scale images without and with compression and Doppler images of the bilateral lower e xtremity veins were obtained. COMPARISON: None FINDINGS: The right common femoral vein, profunda femoral vein, femoral vein, popliteal vein, peroneal trunk, p osterior tibial veins, and greater saphenous vein are patent. The left common femoral vein, profunda femoral vein, femoral vein, popliteal vein, peroneal trunk, po sterior tibial veins, and greater saphenous vein are patent. IMPRESSION: 1. Patent bilateral lower extremity veins. No evidence of deep venous thrombosis. Reviewed, dictated and finalized at location F. IMPRESSION: 1. Patent bilateral lower extremity veins. No evidence of deep venous thrombosi s.
--- NOTE | ~2023-05-09 | XR_ITS ---
XR chest 1V portable DATE: 05/09/2023 13:17 INDICATION: Increased shortness of breath. Productive cough. TECHNIQUE: Portable AP chest on 05/19/2023 at 1258 hours COMPARISON: 06/12/2022 CT lung screening May 08, 2022 portable AP chest FINDINGS: There is bilateral hyperinflation and relative flattening the diaphragm suggesting COPD. No pulmonary infiltrate or consolidation, pleural effusion or pulmonary vascular congestion or pneumo thorax is detected. Normal heart size. Aortic arch calcification. Probable left coronary artery calcification. Degenerative spurring of the thoracic spine. IMPRESSION: Bilateral hyperinflation; no active cardiopulmonary disease Aortic and probable coronary artery calcification Reviewed, dictated and finalized at location []
--- NOTE | ~2023-05-09 | CT_ITS ---
Clinical Indication: Weakness, weight loss CT Scan of the Chest, Abdomen, and Pelvis with Contrast: Technique: Contiguous sections were acquired throughout the chest, abdomen, and pelvis after intraven ous administration of 100 cc of Omnipaque 350. Dose reduction technique was used on this scan by uti lizing automated exposure control and iterative reconstruction technique. The dose-length product (DL P) was 336.27 mGy-cm. COMPARISON: 06/12/2022 Findings: There is no evidence of any significant mediastinal, hilar or axillary lymphadenopathy. There are ath erosclerotic and calcifications of the aorta and coronary arteries. No aortic aneurysm or dissection. No pulmonary embolus seen. No pericardial effusion. There is small to moderate left pleural effusion and small right pleural effusion. Calcified pulmonar y granulomas are noted. There is probable mild emphysema. There is mild intrahepatic biliary dilatation. No focal hepatic mass identified. The spleen, pancreas , gallbladder, and adrenal glands are within normal limits. Probable small bilateral nonobstructing r enal stones present. Extensive atherosclerotic calcifications of the aorta and iliac vessels are pres ent. No lymphadenopathy. No bowel obstruction or bowel wall thickening. There is no evidence to suggest acute appendicitis. Probable urinary bladder wall thickening. Prostate gland is markedly enlarged, and indents through th e bladder base. Tommp-dm-mbrhwsav bilateral hydroceles are noted. Impression: Qwzec-fh-[id number] left pleural effusion and small right pleural effusion. Probable mild emphysema. Mild intrahepatic biliary dilatation, uncertain calcified. No definite obstructing mass identified. C orrelate with LFTs. Bilateral nonobstructing nephrolithiasis. Urinary bladder wall thickening suspected. Correlate for cystitis. Enlarged prostate gland. Lfhbr-cp-[id number] bilateral hydroceles. Reviewed, dictated and finalized at location M. Impression: Gnunf-gq-tvicbwog left pleural effusion and small right pleural effusion. Probable mild emphysema. Mild intrahepatic biliary dilatation, uncertain calcified. No definite obstruct ing mass identified. Correlate with LFTs. Bilateral nonobstructing nephrolithiasis. Urinary bladder wall thickening suspected. Correlate for cystitis. Enlarged prostate gland. Drolc-fw-[id number] bilateral hydroceles.
--- NOTE | ~2023-05-09 | US_ITS ---
EXAMINATION: US arterial duplex [facility] DATE: 05/11/2023 13:47 INDICATION: Peripheral arterial disease. TECHNIQUE: Multiple grayscale and Doppler ultrasound images of the bilateral lower extremity arteries were obtained. COMPARISON: None FINDINGS: Peak systolic velocity is 65 cm/s in right common femoral artery, 101 cm/s in profunda femo ris, 119 cm/s in superficial femoral artery, 37 cm/s in popliteal artery, 38 cm/s in posterior tibial artery, 30 cm/s in peroneal artery, and 37 cm/s in dorsalis pedis. Peak systolic velocity is 71 cm/s in left common femoral artery, and 49 cm/s in profunda femoris. Art erial waveforms could not be obtained in left proximal and mid superficial femoral artery. Peak systo lic velocity is 35 cm/s in distal superficial femoral artery, 24 cm/s in popliteal artery, 25 cm/s po sterior tibial artery, 14 cm/s in peroneal artery, and 10 cm/s dorsalis pedis. IMPRESSION: 1. Increased velocity gradient between right superficial femoral artery and right popliteal artery, c onsistent with at least moderate stenosis. 2. Arterial waveforms could not be obtained at proximal and mid left superficial femoral artery, whic h may be secondary to heavy calcifications or total occlusion. 3. Increased velocity gradient between left popliteal artery and left dorsalis pedis, consistent with at least moderate stenosis. Reviewed, dictated and finalized at location A. IMPRESSION: 1. Increased velocity gradient between right superficial femoral artery and rig ht popliteal artery, consistent with at least moderate stenosis. 2. Arterial waveforms could not be obtained at proximal and mid left superficia l femoral artery, which may be secondary to heavy calcifications or total occlu lópez. 3. Increased velocity gradient between left popliteal artery and left dorsalis pedis, consistent with at least moderate stenosis.
--- NOTE | ~2023-05-09 | CT_ITS ---
EXAMINATION: CT brain wo con DATE: 05/10/2023 10:15 INDICATION: Confusion and weakness TECHNIQUE: Computed tomography (CT) of the head was performed without intravenous contrast. The dose- length product was 605.33 mGy-cm. Automated exposure control and iterative reconstruction technique w ere employed. COMPARISON: CT dated 10/19/2009 FINDINGS: Generalized atrophy. There are scattered moderate periventricular and subcortical white mat ter changes, most likely related to small vessel ischemic disease (microangiopathy). There is intracr anial atherosclerosis. No acute intracranial hemorrhage, infarction, mass or mass effect. No ventricu lomegaly or midline shift. Paranasal sinuses and mastoids are pneumatized. No depressed skull fractur es. IMPRESSION: 1. No acute intracranial abnormality. 2: Chronic age-related findings. Reviewed, dictated and finalized at location A.
--- NOTE | 2023-05-09 12:51 | ECG_ITS ---
Measurements Intervals [place] Rate: 93 P: 79 VT: 164 QRS: 76 QRSD: 82 T: 88 QT: 350 QTc: 437 Interpretive Statements SINUS RHYTHM MINIMAL ST DEPRESSION [0.025+ mV ST DEPRESSION] COMPARED TO ECG 05/08/2022 21:39:10 POOR R-WAVE PROGRESSION, POSSIBLE OLD ANTEROSEPTAL MT THE RATE IS SLOWER. ST (T WAVE) DEVIATION NOW PRESENT Electronically Signed On 05-10-2023 8:44:37 CDT by Francesca Sahu M.D.
[2023-05-09 13:03] LABS: Basophils Percent Auto 0.4 % (0.2-1.2); Eosinophils Percent Auto 0.2 % (0-4.4); Immature Granulocyte Absolute 0.07 K/mm3 (0.00-0.031); Immature Granulocyte Percent A 0.7 % (0-0.5); Lymphocytes Percent Auto 10.4 % (18.3-44.2); Mean Corpuscular Hemoglobin 18.7 pg (26-34); Mean Corpuscular Volume 74.7 fl (80-100); Monocytes Absolute Auto 1.2 K/mm3 (0.1-0.6); Monocytes Percent Auto 12.4 % (2.6-8.5); Neutrophils Absolute Auto 7.3 K/mm3 (1.3-6.7); Neutrophils Percent Auto 75.9 % (45.5-73.1); Nucleated Red Blood Cells Perc 0.3 % (0.0-0.2); Platelet Count Result 610 k/mm3 (150-375); Red Blood Count 2.25 M/mm3 (4.6-6.20); Red Cell Distribution Width 21.8 % (11.5-14.5); White Blood Count 9.6 K/mm3 (4.5-10.0)
[2023-05-09 13:14] LABS: Partial Thromboplastin Time 30.5 SECONDS (22.3-36.8)
[2023-05-09 13:17] LABS: Alanine Aminotransferase 16 U/L (6-50); Albumin Level 3.4 g/dL (3.5-5.1); Alkaline Phosphatase 66 U/L (38-126); Anion Gap 9 mmol/L (8-16); Aspartate Amino Transferase 23 U/L (17-59); Bilirubin,Total 0.3 mg/dL (0.2-1.3); Blood Urea Nitrogen 11 mg/dL (9-20); Calcium 9.2 mg/dL (8.4-10.2); Carbon Dioxide 26 mmol/L (22-30); Chloride 108 mmol/L (98-107); Estimated CRCL calculation 59 ml/min; Estimated Glomerular Filt Rate > 60; Glucose 100 mg/dL (65-110); Magnesium 1.9 mg/dL (1.6-2.3); Potassium 3.8 mmol/L (3.4-5.0); Sodium 143 mmol/L (137-145)
[2023-05-09 13:18] LABS: Hematocrit 16.8 % (42.0-52.0); Hemoglobin 4.2 g/dL (14.0-18.0)
[2023-05-09 13:20] LABS: Schistocytes None Seen (NORMAL)
[2023-05-09 13:21] LABS: Acanthocytes 1+ (NORMAL); Anisocytosis 2+ (NORMAL); Hypochromasia 2+ (NORMAL); Poikilocytosis 2+ (NORMAL)
[2023-05-09 13:22] LABS: Ovalocytes 1+ (NORMAL); Platelet Estimate Increased (Adequate)
[2023-05-09 13:32] LABS: NT Pro B Type Natriuretic Pept 5280 pg/mL (19.9-100); Troponin I 0.053 ng/mL (0.000-0.034)
--- NOTE | 2023-05-09 15:16 | ED.SOB ---
HPI - SOB/Dyspnea General Chief Complaint: Shortness of Breath/Dyspnea Stated Complaint: weak, SOB, fall Time Seen by Provider: 05/09/23 12:38 History of Present Illness HPI Narrative: This 72-year-old male patient with significant past medical history of COPD did, dementia, underweight, CAD and vitamin-D deficiency presents to the emergency room today brought by EMS with complaints of having generalized weakness, dyspnea, and malaise. He notes that over the past month his weakness has increased and he has had intermittent swelling of the lower extremities. He also notes that he was sitting in a chair today and due to how he was sitting and his weakness he slid out of it. He does not believe he sustained any injury and has no complaints from the fall, however patient appears emaciated and very ill. He has not had any recent ill contacts that he is aware of. Patient denies any melena or hematochezia and he has not had any nausea or vomiting. He reports his that his bowel movements are normal for him. He denies any chest pain. This patient is a poor historian and is very hard to pull information out of but upon my 1st evaluation of him he appears chronically ill. Related Data Home Medications Medication Instructions Recorded Confirmed aspirin 81 mg tablet,delayed 81 mg PO DAILY 11/11/19 02/17/23 release (Adult Low Dose Aspirin) ramipril 5 mg capsule 5 mg PO DAILY 09/06/20 02/17/23 simvastatin 40 mg tablet 40 mg PO DAILY 09/06/20 02/17/23 rivaroxaban 2.5 mg tablet (Xarelto) 2.5 mg PO DAILY 09/19/21 02/17/23 cholecalciferol (vitamin D3) 125 125 mcg PO DAILY 05/09/22 02/17/23 mcg (5,000 unit) capsule Allergies Allergy/AdvReac Type Severity Reaction Status Date / Time No Known Allergies Allergy Verified 02/17/23 14:58 Review of Systems Review of Systems: A full 12 point review of systems was performed and is otherwise negative except what is noted in HPI. All systems reviewed & are unremarkable except as noted in HPI and below PMFSH Past Medical History Medical History COPD mixed type Essential (primary) hypertension Gastro-esophageal reflux disease without esophagitis Surgical History Surgical History H/O wrist surgery History of ankle surgery History of hernia repair History of PTCA 4 heart stents Hx of tonsillectomy Family History Family History Mother Patient's mother is Father Patient's father is Sibling Family history of malignant neoplasm of ovary Grandparent Acute myocardial infarction Social History Social History Smoking packs per day: 0.75 Smoking cigarettes per day: 15.0 Years smoked: 58 Smoking pack-years: 43.50 Smoking status: Current every day smoker Tobacco type: cigarettes Second hand tobacco smoke exposure: Yes ( also smokes) Additional smoking assessment comments: smoked up to 3 packs per day; decreased intake to 3/4 pack in the past 12mo Alcohol intake: current Drinks per week: 42 Alcohol use details: 5-6 beers per night Substance use: never Lack of Transportation: No Lack of Food: Never True Current Housing: I Have Housing Concerned About Future Housing: No Difficulty Paying Gas/Electric Bills: No Difficulty Paying for Meds: No Currently Unemployed: No Education: Trade/Vocational Certificate Difficulty w/ Childcare or Family Care: No Living arrangements: with family Additional living arrangements comments: Lives with and son Occupation/Education: retired Gender identity (if verbalized by the patient): Male Spiritual care concerns: No Exam Const: General: ill appearing chronically Nutritional Appearance: thin (emaciated) [facility]
[2023-05-09 15:37] LABS: Troponin I 0.047 ng/mL (0.000-0.034)
[2023-05-09] MEDS: ALBUTEROL SULFATE NEB 2.5 MG/3 ML INH INHALATION (15:39)
[2023-05-09] MEDS: IPRATROPIUM BR 0.02% INH SOLN 0.5 MG/2.5 ML VIAL 1 MG INHALATION (15:39)
[2023-05-09] MEDS: TUBING, BLOOD PLUM PUMP TUBING 1 EACH XX (15:50)
[2023-05-09] MEDS: SODIUM CHLORIDE 0.9% IV 250 ML 30 ML IV CONT (15:50)
--- NOTE | 2023-05-09 16:22 | PM.IMHP ---
H&P: HPI History of Present Illness Date/Time: 05/09/23 18:00 Chief Complaint: Weakness, shortness of breath, fall. Narrative: This is a 72-year-old male smoker with history of coronary artery disease, hypertension, peripheral arterial disease, memory loss, COPD, GERD, and remote history of duodenal ulcer who presented to the emergency department via EMS from home for evaluation of weakness, shortness of breath, and fall. The patient provides the following history; his Destiny provides additional information with the patient's permission as he is not the best historian. He has had an unintentional nearly 50 lb weight loss over the last year and a half for so and he has been seen by Dr. Durand however he has thus far not been keeping up with his outpatient labs and he has been refusing colonoscopies. He has become increasingly weak over the past 1 month and his states that he spends most of his time in his recliner. The last several days he has been so weak that he has had difficulties holding himself in an upright position though he had refused to come to the ER and tell this morning. heard a noise coming from the living room and when she came to check on him he was on the floor and he reported that he was tried to get up and thinks he blacked out. He cannot provide me with much information other than that, however. He does not think he had any head trauma and he has no complaints of injuries. He does indicate that he has been weak and lightheaded and reports having a poor appetite though he denies nausea, vomiting, and diarrhea. He also denies fever, chills, sweats, cold and flu symptoms, chest pain, pleuritic pain, orthopnea, and paroxysmal nocturnal dyspnea. He does have lower extremity edema which seems to be getting worse over the last month. He is on Xarelto but does not know why; denies history of DVT. Vital signs were stable on arrival to the emergency department. Preliminary workup was significant for profound anemia with a hemoglobin and hematocrit of 4.2 and 16.8% respectively. CT of the chest, abdomen, and pelvis showed small to moderate left pleural effusion, small right pleural effusion, probable mild emphysema mild intrahepatic biliary dilatation without definite obstructing mass, bilateral nonobstructing nephrolithiasis, urinary bladder wall thickening, enlarged prostate gland, and small to moderate bilateral hydroceles. Review of Systems Review of Systems: Twelve systems were reviewed and are negative except for as per HPI. [facility] Past Medical History Medical History (Updated 05/09/23 @ 23:00 by Carla Dixon PA-C) COPD mixed type Coronary artery disease Dementia Duodenal ulcer Essential (primary) hypertension Gastro-esophageal reflux disease without esophagitis Tobacco dependence Surgical History Surgical History H/O wrist surgery History of ankle surgery History of hernia repair History of PTCA 4 heart stents Hx of tonsillectomy Family History Family History Mother Patient's mother is Father Patient's father is Sibling Family history of malignant neoplasm of ovary Grandparent Acute myocardial infarction Social History Social History (Updated 05/09/23 @ 22:56 by Carla Dixon PA-C) Social History: Surrogate medical decision maker: Riley Meyers, . Code status: Full code. Smoking packs per day: 1.5 Smoking cigarettes per day: 30.0 Years smoked: 60 Smoking pack-years: 90.00 Smoking status: Current every day smoker Tobacco type: cigarettes Second hand tobacco smoke exposure: Yes ( also smokes) Additional smoking assessment comments: smoked up to 3 packs per day; decreased intake to 3/4 pack in the past 12mo Alcohol intake: never Drinks per week: 42 Alcohol use details: 5-6 beers per night Subs
[2023-05-09 16:39] LABS: Immature Reticulocyte Fraction 44.6 % (3.0-15.9); Reticulocyte Hemoglobin Conten 17.3 pg (28.2-35.7); Reticulocyte Percent 2.36 % (0.7-4.3); Reticulocytes Absolute 0.06 M/mm3 (0.02-0.1)
[2023-05-09 17:39] LABS: Thyroid Stimulating Hormone Reflex 0.895 uIU/mL (0.465-4.68)
--- NOTE | 2023-05-09 18:05 | PC.NURSE ---
This patient, Nikita Meyers, was admitted to IMU Room 205-02. Patient/family oriented to hospital policies and general routines including ID bracelet, bed and alarms, visiting hours, pain management, procedures, bathroom and other care routines, personal items, smoking policy, room service/diet, and visiting hours. Information on how to activate the Rapid Response Team has been discussed. Patient/Family are encouraged to report perceived risks to care and to ask questions if they do not understand what they are told or what they should do.
[2023-05-09] MEDS: FUROSEMIDE INJ 40 MG/4 ML VIAL 20 MG IV PUSH (18:30)
[2023-05-09 19:06] LABS: Troponin I 0.066 ng/mL (0.000-0.034)
[2023-05-09 19:21] LABS: Iron 14 ug/dL (49-181)
[2023-05-09 19:25] LABS: Percent Iron Saturation 3 % (20-50)
[2023-05-09 19:52] LABS: Ferritin 4.12 ng/mL (11.1-264)
[2023-05-09 20:04] LABS: Appearance Urine Clear (Clear); Bilirubin Urine Negative (Negative); Blood Urine Negative (Negative); Color Urine Yellow (Yellow); Glucose Urine UA Negative (Negative); Ketones Urine Negative (Negative); Leukocyte Esterase Ur Negative LEU/UL (Negative); Nitrate Urine Negative (Negative); Protein Urine Negative (Negative); Specific Grav Ur 1.011 (1.001-1.035); Urobilinogen Urine 0.2 mg/dL (<2.0)
[2023-05-09 20:20] LABS: Add Urine Microscopic? NO
[2023-05-10] VITALS (20 sets, daily range): BP systolic 99–128; BP diastolic 52–68; PULSE 62–96; RESP 16–20; TEMP 36.1–36.9; O2SAT 96–100
[2023-05-10 05:05] LABS: Hematocrit 30.6 % (42.0-52.0); Hemoglobin 9.3 g/dL (14.0-18.0); Mean Corpuscular HGB Conc 30.4 g/dl (32-36); Mean Corpuscular Volume 79.1 fl (80-100); Mean Platelet Volume 8.6 fl (7.4-10.4); Platelet Count Result 464 k/mm3 (150-375); Red Blood Count 3.87 M/mm3 (4.6-6.20); Red Cell Distribution Width 21.2 % (11.5-14.5); White Blood Count 10.8 K/mm3 (4.5-10.0)
[2023-05-10 05:20] LABS: Alanine Aminotransferase 10 U/L (6-50); Albumin Level 3.5 g/dL (3.5-5.1); Alkaline Phosphatase 76 U/L (38-126); Anion Gap 4 mmol/L (8-16); Aspartate Amino Transferase 21 U/L (17-59); Bilirubin,Total 0.8 mg/dL (0.2-1.3); Blood Urea Nitrogen 10 mg/dL (9-20); Calcium 9.3 mg/dL (8.4-10.2); Carbon Dioxide 29 mmol/L (22-30); Chloride 109 mmol/L (98-107); Estimated CRCL calculation 54 ml/min; Estimated Glomerular Filt Rate > 60; Glucose 80 mg/dL (65-110); Potassium 3.2 mmol/L (3.4-5.0); Sodium 142 mmol/L (137-145)
--- NOTE | 2023-05-10 08:00 | ECHO_ITS ---
Patient Info Name: Nikita Meyers Age: 72 years : 1950 Gender: Male Ht: 68 in Wt: 113 lbs BSA: 1.55 m2 HR: 79 bpm Heart Rhythm: Sinus Rhythm Technical Quality: Poor Exam Date: 05/10/2023 8:57 AM Exam Location: [facility] [place] Patient Status: Inpatient Admit Date: 05/09/2023 Staff Ordering Physician: Carla Dixon PA-C International Project Engineer: Viki Soto RDCS Attending Provider: Abran Koehler MD Referring Physician: Destiny BETANCUR; Exam Type: CA echo doppler color flow Study Info Indications - elevated troponin/pleural effusion/CAD Complete two-dimensional, color flow and Doppler transthoracic echocardiogram is performed. Reason for Poor Study: patient body habitus Summary 1. Complete two-dimensional, color flow and Doppler transthoracic echocardiogram is performed. 2. Normal left ventricular size and thickness. Overall good left ventricular contractility, ejection fraction greater than 70%. However there is severe hypokinesis to akinesis of the basal inferoseptal segment. Grade 2 diastolic dysfunction is noted. 3. Right ventricle not well visualized and may be mildly enlarged and hypokinetic. 4. No significant valve disease. 5. No pulmonary hypertension, estimated pulmonary arterial systolic pressure is 34 mmHg. 6. Dilated inferior vena cava with >50% collapse upon inspiration consistent with elevated right atrial pressure, 10 mmHg. 7. Normal sinus rhythm. Left Ventricle Left ventricular chamber dimension is normal. Left ventricular systolic function is normal, estimated at >70%. There is no increased left ventricular wall thickness. Left ventricular septal wall motion is normal. The left ventricular diastolic function is grade II diastolic dysfunction. Right Ventricle Right ventricular chamber dimension is mildly enlarged. Right ventricular systolic function is normal. Left Atria Left atrial chamber dimension is mildly enlarged. Right Atria Right atrial chamber dimension is normal. Aortic Valve The aortic valve is trileaflet. There is no aortic valve sclerosis. There is no aortic valve stenosis. There is no aortic valve regurgitation. Pulmonic Valve The pulmonic valve is normal. There is no pulmonic valve stenosis. There is no pulmonic regurgitation. Mitral Valve The mitral valve has normal leaflets. There is no mitral valve stenosis. There is trace mitral valve regurgitation. Tricuspid Valve The tricuspid valve leaflets are normal. There is no significant tricuspid valve stenosis. There is trace tricuspid valve regurgitation. No pulmonary hypertension, estimated pulmonary arterial systolic pressure is 34 mmHg. Pericardium/Pleural The pericardium appears normal. There is no pericardial effusion. Inferior Vena Cava Dilated inferior vena cava with >50% collapse upon inspiration consistent with elevated right atrial pressure, 10 mmHg. Aorta The aortic root size at the sinus of Valsalva is normal. The prox ascending aorta size is normal. Left Ventricular Outflow Tract Name Value Normal LVOT 2D LVOT Diameter 2.0 cm Pulmonic Valve Name Value Normal RVOT Doppler
[2023-05-10] MEDS: CHOLECALCIFEROL 1,000 UNITS TABLET 5000 UNITS PO (09:19)
[2023-05-10] MEDS: carvediloL 3.125 MG TABLET PO ×2 (09:20→21:51)
[2023-05-10] MEDS: POTASSIUM CHLORIDE 20 MEQ ER TABLET 40 MEQ PO (09:20)
[2023-05-10] MEDS: SIMVASTATIN 20 MG TABLET 40 MG PO (09:20)
[2023-05-10] MEDS: ramipriL 5 MG CAPSULE PO (09:20)
[2023-05-10] MEDS: PANTOPRAZOLE SODIUM IV 40 MG VIAL IV PUSH ×2 (09:21→21:51)
[2023-05-10] MEDS: FUROSEMIDE INJ 40 MG/4 ML VIAL 20 MG IV PUSH ×2 (09:21→17:48)
[2023-05-10] MEDS: FLUTICASONE/UMECLIDIN/VILANTER 100-62.5-25 MCG ELLIPTA 1 PUFF INHALATION (09:55)
--- NOTE | 2023-05-10 10:53 | PM.IMPN ---
Progress Note: A&P Assessment and Plan (1) Profound anemia: Code(s): D64.9 - Anemia, unspecified Status: Acute Assessment and Plan: Hemoglobin was 4.2. Improved after 3 units PRBC transfusion. Continue PPI GI consulted. (2) Pleural effusion: Code(s): J90 - Pleural effusion, not elsewhere classified Status: Acute Assessment and Plan: Discontinue IV fluids Continue Lasix (3) Elevated troponin: Code(s): R77.8 - Other specified abnormalities of plasma proteins Status: Acute Assessment and Plan: Likely demand ischemia from anemia (4) Weight loss: Code(s): R63.4 - Abnormal weight loss Status: Acute Assessment and Plan: CT scan of the chest abdomen pelvis negative for any malignancy. GI workup pending (5) COPD mixed type: Code(s): J44.9 - Chronic obstructive pulmonary disease, unspecified Status: Acute (6) Coronary artery disease: Code(s): I25.10 - Atherosclerotic heart disease of [place] coronary artery without angina pectoris Status: Acute Assessment and Plan: Continue beta-renee and LEOBARDO-inhibitor (7) Dementia: Code(s): F03.90 - Unspecified dementia, unspecified severity, without behavioral disturbance, psychotic disturbance, mood disturbance, and anxiety Status: Acute Subjective Date/time seen: 05/10/23 10:53 Interval history: Remains status quo Review of Systems Review of Systems: Twelve systems were reviewed and are negative except for as per HPI. Exam Narrative: General: Ill, cachectic male supine in bed. Weight: 51.3 kg. BMI: 17.2. HEENT: PERRL, EOMI. Sclera anicteric. Conjunctiva are pale. Tacky mucous membranes. Neck: Supple. Respiratory: Respirations are nonlabored. Lung sounds are a bit diminished at the bases with faint crackles on the left. Cardiovascular: Regular rate and rhythm with S1-S2. Gastrointestinal: Abdomen is soft, nontender, and nondistended with positive bowel sounds. Skin: Warm and dry. Generalized pallor. Extremities: No cyanosis or clubbing. Bilateral lower extremity edema, right greater than left. Radial pulses palpable. Pedal pulses difficult to palpate but feet are perfused. Neurological: Somnolent but will arouse to voice. Cranial nerves 2-12 are grossly intact. Generalized weakness without gross focal findings. Psychiatric: Somnolent. Flat mood and affect. Objective Data Vital Signs Vital Signs: Vital Signs - 24 hr 05/09/23 12:38 05/09/23 12:50 05/09/23 12:50 Temperature 97.8 F Pulse Rate 102 H 102 H Respiratory Rate 22 H Blood Pressure 108/59 L Pulse Oximetry 100 Oxygen Delivery Room Air Room Air 05/09/23 13:00 05/09/23 14:15 05/09/23 15:35 Temperature Pulse Rate 97 102 H 90 Respiratory Rate 17 16 17 Blood Pressure 109/52 L 103/48 L Pulse Oximetry 100 100 Oxygen Delivery 05/09/23 15:53 05/09/23 16:11 05/09/23 17:08 Temperature 98.6 F 98.8 F 99.0 F Pulse Rate 86 89 91 Respiratory Rate 20 18 18 Blood Pressure 115/64 111/84 120/69 Pulse Oximetry 100 100 100 Oxygen Delivery 05/09/23 17:11 05/09/23 14:30 05/09/23 14:31 Temperature 99.0 F Pulse Rate 76 101 H 97 Respiratory Rate 18 Blood Pressure 136/70 108/62 Pulse Oximetry 100 Oxygen Delivery 05/09/23 14:45 05/09/23 15:06 05/09/23 15:15 Temperature Pulse Rate 96 97 89 Respiratory Rate Blood Pressure Pulse Oximetry Oxygen Delivery 05/09/23 15:30 05/09/23 15:31 05/09/23 15:45 Temperature Pulse Rate 101 H 91 80 Respiratory Rate Blood Pressure 115/64 Pulse Oximetry Oxygen Delivery 05/09/23 16:00 05/09/23 16:01 05/09/23 16:15 Temperature Pulse Rate 101 H 103 H 91 Respiratory Rate Blood Pressure 111/84 Pulse Oximetry Oxygen Delivery 05/09/23 16:39 05/09/23 16:45 05/09/23 17:00 Temperature Pulse Rate 89 88 95 Respiratory Rate Blood Pressure Pulse
--- NOTE | 2023-05-10 14:34 | PCSTNOTE ---
Patient seen for bedside swallowing evaluation. Positioned upright in bed. Attempted oral peripheral examination, patient has difficulty following instructions. Oral mechanism appears to be within functional limits structurally and functionally. Speech is intelligible. Trials of thin liquid by spoon, cup, and straw were given. No signs of aspiration or penetration. Trials of pureed food given by spoon, swallowing of pureed food wfl. Piece of tia cracker presented and patient was able to chew without difficulty but oral residue was present after swallowing, presumably due to dry texture of bolus. Recommendations: thin liquids and soft/bite sized diet texture (level 6). Swallowing precaution recommendations placed in chart. No further speech therapy is recommended for this patient. Please note that silent aspiration cannot be ruled out at bedside. However, based on bedside swallowing evaluation results there are no signs of aspiration. No further speech therapy is recommended. Thank you for the referral of this patient.
--- NOTE | 2023-05-10 18:09 | WPDGICN ---
Assessment and Plan Assessment and plan (1) Profound anemia: Code(s): D64.9 - Anemia, unspecified Status: Acute Assessment and Plan: symptomatic anemia with weight loss concerning for malignancy, reviewed CT scan will proceed with egd and colonoscopy Friday hold eliquis and monitor for signs of bleeding (2) Syncope: Code(s): R55 - Syncope and collapse Status: Acute Assessment and Plan: probably from severe anemia monitor (3) Pleural effusion: Code(s): J90 - Pleural effusion, not elsewhere classified Status: Acute (4) Elevated troponin: Code(s): R77.8 - Other specified abnormalities of plasma proteins Status: Acute Assessment and Plan: probably from demand ischemia no chest pain s/p blood transfusion monitor (5) Coronary artery disease: Code(s): I25.10 - Atherosclerotic heart disease of [place] coronary artery without angina pectoris Status: Acute (6) Abnormal weight loss: Code(s): R63.4 - Abnormal weight loss Status: Acute Assessment and Plan: concerning for malignancy scopes friday GI Consult Note Consult date/time: 05/10/23 18:09 Reason for consult: profound anemia, weight loss HPI: Nikita Meyers is a 72 year old male with history of smoker, coronary artery disease, hypertension, peripheral arterial disease, COPD, GERD, and remote history of duodenal ulcer who came to ER after progressive weakness and fall. He also had unintentional nearly 50 lb weight loss over the last year and a half for so and was seeing his PCP but did not keep up with his outpatient labs and did not get scope evaluation. He was found on the floor by after he tried to get up, he has been weak and lightheaded and reports poor appetite. He is on Xarelto. Workup was significant for profound anemia with a hemoglobin and hematocrit of 4.2 and 16.8% respectively. CT of the chest, abdomen, and pelvis reviewed and showed small to moderate left pleural effusion, small right pleural effusion, probable mild emphysema mild intrahepatic biliary dilatation without definite obstructing mass, bilateral nonobstructing nephrolithiasis, urinary bladder wall thickening, enlarged prostate gland, and small to moderate bilateral hydroceles. He had normal liver enzymes. Also mild elevated troponin. He received blood transfusion, son is at bedside. Review of Systems Constitutional: Constitutional: Reports lethargy, Reports weakness and Reports weight loss Eyes: Eyes: Denies blurry vision ENT: Reports Normal hearing present Cardiovascular: Cardiovascular: Reports lightheadedness Respiratory: Respiratory: Reports dyspnea on exertion Gastrointestinal: Gastrointestinal: Denies abdominal pain Genitourinary: Genitourinary: Denies dysuria Musculoskeletal: Musculoskeletal: Denies back pain Integumentary/Breasts: Skin/Breast: Denies rash Neurologic: Denies Abnormal speech present Psychiatric: Psychiatric: Denies confusion [facility] Past Medical History Medical History (Updated 05/09/23 @ 23:00 by Carla Dixon PA-C) COPD mixed type Coronary artery disease Dementia Duodenal ulcer Essential (primary) hypertension Gastro-esophageal reflux disease without esophagitis Tobacco dependence Surgical History Surgical History H/O wrist surgery History of ankle surgery History of hernia repair History of PTCA 4 heart stents Hx of tonsillectomy Family History Family History Mother Patient's mother is Father Patient's father is Sibling Family history of malignant neoplasm of ovary Grandparent Acute myocardial infarction Social History Social History (Updated 05/09/23 @ 22:56 by Carla Dixon PA-C) Social History: Surrogate medical decision maker: Riley Meyers, . Kemi s
[2023-05-10] MEDS: DONEPEZIL HCL 10 MG TABLET PO (21:51)
[2023-05-11] VITALS (13 sets, daily range): BP systolic 94–131; BP diastolic 48–84; PULSE 62–100; RESP 14–18; TEMP 36.1–36.8; O2SAT 97–100
[2023-05-11] MEDS: FLUTICASONE/UMECLIDIN/VILANTER 100-62.5-25 MCG ELLIPTA 1 PUFF INHALATION (08:06)
[2023-05-11 09:53] LABS: Hematocrit 33.7 % (42.0-52.0); Hemoglobin 10.2 g/dL (14.0-18.0); Mean Corpuscular HGB Conc 30.3 g/dl (32-36); Mean Corpuscular Hemoglobin 24.6 pg (26-34); Mean Corpuscular Volume 81.2 fl (80-100); Mean Platelet Volume 8.9 fl (7.4-10.4); Platelet Count Result 444 k/mm3 (150-375); Red Blood Count 4.15 M/mm3 (4.6-6.20); Red Cell Distribution Width 22.3 % (11.5-14.5); White Blood Count 12.1 K/mm3 (4.5-10.0)
--- NOTE | 2023-05-11 10:01 | PM.IMPN ---
Progress Note: A&P Assessment and Plan (1) Profound anemia: Code(s): D64.9 - Anemia, unspecified Status: Acute Assessment and Plan: Hemoglobin was 4.2. Improved after 3 units PRBC transfusion. Continue PPI GI consulted. Plan for EGD and colonoscopy on Friday noted (2) Pleural effusion: Code(s): J90 - Pleural effusion, not elsewhere classified Status: Acute Assessment and Plan: Discontinue IV fluids Discontinue IV Lasix Start on oral Lasix (3) Elevated troponin: Code(s): R77.8 - Other specified abnormalities of plasma proteins Status: Acute Assessment and Plan: Likely demand ischemia from anemia (4) Weight loss: Code(s): R63.4 - Abnormal weight loss Status: Acute Assessment and Plan: CT scan of the chest abdomen pelvis negative for any malignancy. GI workup pending (5) COPD mixed type: Code(s): J44.9 - Chronic obstructive pulmonary disease, unspecified Status: Acute (6) Coronary artery disease: Code(s): I25.10 - Atherosclerotic heart disease of [place] coronary artery without angina pectoris Status: Acute Assessment and Plan: Continue beta-renee and LEOBARDO-inhibitor (7) Dementia: Code(s): F03.90 - Unspecified dementia, unspecified severity, without behavioral disturbance, psychotic disturbance, mood disturbance, and anxiety Status: Acute Subjective Date/time seen: 05/11/23 10:01 Interval history: Patient reports some back ache and generalized discomfort Review of Systems Constitutional: Constitutional: Reports lethargy, Reports weakness and Reports weight loss Eyes: Eyes: Denies blurry vision ENT: Reports Normal hearing present Cardiovascular: Cardiovascular: Reports lightheadedness Respiratory: Respiratory: Reports dyspnea on exertion Gastrointestinal: Gastrointestinal: Denies abdominal pain Genitourinary: Genitourinary: Denies dysuria Musculoskeletal: Musculoskeletal: Denies back pain Integumentary/Breasts: Skin/Breast: Denies rash Neurologic: Denies Abnormal speech present Psychiatric: Psychiatric: Denies confusion Exam Narrative: General: Ill, cachectic male supine in bed. Weight: 51.3 kg. BMI: 17.2. HEENT: PERRL, EOMI. Sclera anicteric. Conjunctiva are pale. Tacky mucous membranes. Neck: Supple. Respiratory: Respirations are nonlabored. Lung sounds are a bit diminished at the bases with faint crackles on the left. Cardiovascular: Regular rate and rhythm with S1-S2. Gastrointestinal: Abdomen is soft, nontender, and nondistended with positive bowel sounds. Skin: Warm and dry. Generalized pallor. Extremities: No cyanosis or clubbing. Bilateral lower extremity edema, right greater than left. Radial pulses palpable. Pedal pulses difficult to palpate but feet are perfused. Neurological: Somnolent but will arouse to voice. Cranial nerves 2-12 are grossly intact. Generalized weakness without gross focal findings. Psychiatric: Somnolent. Flat mood and affect. Objective Data Vital Signs Vital Signs: Vital Signs - 24 hr 05/10/23 12:00 05/10/23 12:00 05/10/23 12:00 Temperature 97.6 F Pulse Rate 91 78 Respiratory Rate 16 Blood Pressure 124/68 Pulse Oximetry 98 Oxygen Delivery Room Air 05/10/23 12:53 05/10/23 16:00 05/10/23 14:00 Temperature 98.4 F Pulse Rate 74 88 Respiratory Rate 16 Blood Pressure 99/52 L Pulse Oximetry 96 Oxygen Delivery Room Air 05/10/23 16:00 05/10/23 18:00 05/10/23 16:00 Temperature Pulse Rate 86 92 Respiratory Rate Blood Pressure Pulse Oximetry Oxygen Delivery Room Air 05/10/23 18:42 05/10/23 19:58 05/10/23 19:59 Temperature 97.6 F Pulse Rate 76 Respiratory Rate 16 Blood Pressure 105/62 101/61 106/58 L Pulse Oximetry 97 Oxygen Delivery 05/10/23 21:51 05/10/23 20:00 05/10/23 20:00 Temperature Pulse Rate 78 76 81 Respiratory Rate 16 Blood Press
[2023-05-11 10:03] LABS: Anion Gap 7 mmol/L (8-16); Blood Urea Nitrogen 13 mg/dL (9-20); Calcium 9.3 mg/dL (8.4-10.2); Carbon Dioxide 28 mmol/L (22-30); Chloride 103 mmol/L (98-107); Estimated CRCL calculation 53 ml/min; Estimated Glomerular Filt Rate > 60; Glucose 99 mg/dL (65-110); Potassium 3.5 mmol/L (3.4-5.0); Sodium 138 mmol/L (137-145)
[2023-05-11] MEDS: PANTOPRAZOLE SODIUM IV 40 MG VIAL IV PUSH ×2 (10:04→20:19)
[2023-05-11] MEDS: carvediloL 3.125 MG TABLET PO ×2 (10:04→20:19)
[2023-05-11] MEDS: CHOLECALCIFEROL 1,000 UNITS TABLET 5000 UNITS PO (10:04)
[2023-05-11] MEDS: ACETAMINOPHEN 325 MG TABLET 650 MG PO (10:04)
[2023-05-11] MEDS: ramipriL 5 MG CAPSULE PO (10:04)
[2023-05-11] MEDS: FUROSEMIDE 20 MG TABLET PO (10:04)
[2023-05-11] MEDS: SIMVASTATIN 20 MG TABLET 40 MG PO (10:04)
--- NOTE | 2023-05-11 11:51 | PC.NURSE ---
This patient, Nikita Meyers, was transferred to [facility] on 05/11/23 at 1151. Personal belongings sent with patient. Report given to Lashawn CARVAJAL. Appropriate documentation sent with patient.
--- NOTE | 2023-05-11 13:47 | PCOTNOTE ---
Attempted OT evaluation. Pt. out of room for testing. Will attempt again as able.
--- NOTE | 2023-05-11 17:50 | WPDGIPROGNO ---
Progress Note: A&P Assessment and Plan (1) Profound anemia: Code(s): D64.9 - Anemia, unspecified Status: Acute Assessment and Plan: no overt gib h/h improved after transfusion egd and colonoscopy tomorrow (2) Protein calorie malnutrition: Code(s): E46 - Unspecified protein-calorie malnutrition Status: Acute Assessment and Plan: we need to assess for malignancy scopes tomorrow (3) Abnormal weight loss: Code(s): R63.4 - Abnormal weight loss Status: Acute (4) Syncope: Code(s): R55 - Syncope and collapse Status: Acute (5) Pleural effusion: Code(s): J90 - Pleural effusion, not elsewhere classified Status: Acute Subjective Date/time seen: 05/11/23 17:50 Interval history: no changes, he is eating. at bedside Review of Systems Review of Systems: All systems reviewed & are unremarkable except as noted in HPI and below Exam Const: General: comfortable Other: cachectic HENMT: Face/Nose/Sinus: Normal nares present Eyes: General: appearance normal, both eyes and all related structures Neck: Neck: supple Resp: Auscultation: clear to auscultation bilaterally Cardio: Rate: regular rate GI: GI Palp: Yes Soft to palpation, No Tenderness to palpation present (GI) and No Guarding due to palpation present (GI) Auscultation: normal bowel sounds Skin: Other: pale Neuro: Speech: normal speech Motor exam (neuro): 5/5 motor strength present throughout Extrem: General: normal to inspection Psych: Affect: normal affect Objective Data Vital Signs Vital Signs: Vital Signs - 24 hr 05/10/23 18:00 05/10/23 18:42 05/10/23 19:58 Temperature 97.6 F Pulse Rate 92 76 Respiratory Rate 16 Blood Pressure 105/62 101/61 Pulse Oximetry 97 Oxygen Delivery 05/10/23 19:59 05/10/23 21:51 05/10/23 20:00 Temperature Pulse Rate 78 76 Respiratory Rate 16 Blood Pressure 106/58 L Pulse Oximetry 97 Oxygen Delivery Room Air 05/10/23 20:00 05/10/23 22:00 05/10/23 23:14 Temperature 97.4 F L Pulse Rate 81 80 77 Respiratory Rate 16 Blood Pressure 112/57 L Pulse Oximetry 98 Oxygen Delivery 05/11/23 00:00 05/11/23 00:00 05/11/23 01:48 Temperature Pulse Rate 77 67 62 Respiratory Rate 16 Blood Pressure Pulse Oximetry 98 Oxygen Delivery Room Air 05/11/23 04:00 05/11/23 04:00 05/11/23 04:00 Temperature 97.6 F Pulse Rate 67 67 78 Respiratory Rate 16 16 Blood Pressure 120/60 Pulse Oximetry 98 98 Oxygen Delivery Room Air 05/11/23 05:15 05/11/23 08:00 05/11/23 08:00 Temperature 96.9 F L Pulse Rate 74 80 83 Respiratory Rate 18 Blood Pressure 131/66 Pulse Oximetry 98 Oxygen Delivery 05/11/23 08:00 05/11/23 10:50 05/11/23 10:50 Temperature Pulse Rate 82 Respiratory Rate Blood Pressure 106/65 102/54 L 94/57 L Pulse Oximetry 97 Oxygen Delivery 05/11/23 08:00 05/11/23 10:04 05/11/23 14:10 Temperature 98.0 F Pulse Rate 82 70 Respiratory Rate 14 Blood Pressure 112/62 Pulse Oximetry 98 Oxygen Delivery Room Air Intake/Output Intake/Output: Intake & Output 05/08/23 05/09/23 05/10/23 05/11/23 23:59 23:59 23:59 23:59 Intake Total 731 1230 440 Output Total 8476 2580 455 Balance -349 -1350 -15 Meds/Results Medications: Active Medications Generic Name Dose Route Start Last Admin Trade Name Freq PRN Reason Stop Dose Admin Acetaminophen 650 mg 05/09/23 23:05 05/11/23 10:04 Acetaminophen 325 Mg Tablet PO 650 mg Q6H PRN Administration Mild Pain (1-3) or Fever Bisacodyl 20 mg 05/11/23 18:00 Bisacodyl 5 Mg Tablet Ec PO 05/11/23 18:01 ONCE ONE Carvedilol 3.125 mg 05/10/23 09:00 05/11/23 10:04 Carvedilol 3.125 Mg Tablet PO 3.125 mg Q12HR EDISON Administration Donepezil HCl 10 mg 05/10/23 21:00 05/10/23 21:51 Donepezil Hcl 10 Mg Tablet PO 10 mg QHS S
[2023-05-11] MEDS: BISACODYL 5 MG TABLET EC 20 MG PO (18:35)
[2023-05-11] MEDS: polyethylene glycoL 3350 238 GM BOTTLE PO (18:35)
[2023-05-11] MEDS: DONEPEZIL HCL 10 MG TABLET PO (20:19)
[2023-05-12] VITALS (16 sets, daily range): BP systolic 84–132; BP diastolic 49–77; PULSE 67–100; RESP 16–25; TEMP 36.2–37.7; O2SAT 93–100; BMI 17.3
[2023-05-12 05:10] LABS: Hematocrit 30.6 % (42.0-52.0); Hemoglobin 9.1 g/dL (14.0-18.0); Mean Corpuscular HGB Conc 29.7 g/dl (32-36); Mean Corpuscular Hemoglobin 24.1 pg (26-34); Mean Corpuscular Volume 81.2 fl (80-100); Mean Platelet Volume 8.6 fl (7.4-10.4); Platelet Count Result 389 k/mm3 (150-375); Red Blood Count 3.77 M/mm3 (4.6-6.20); Red Cell Distribution Width 23.1 % (11.5-14.5); White Blood Count 12.3 K/mm3 (4.5-10.0)
[2023-05-12 05:18] LABS: Anion Gap 3 mmol/L (8-16); Blood Urea Nitrogen 16 mg/dL (9-20); Calcium 8.7 mg/dL (8.4-10.2); Carbon Dioxide 29 mmol/L (22-30); Chloride 104 mmol/L (98-107); Estimated CRCL calculation 59 ml/min; Estimated Glomerular Filt Rate > 60; Glucose 93 mg/dL (65-110); Potassium 3.5 mmol/L (3.4-5.0); Sodium 136 mmol/L (137-145)
[2023-05-12] MEDS: carvediloL 3.125 MG TABLET PO ×2 (08:40→20:32)
[2023-05-12] MEDS: PANTOPRAZOLE SODIUM IV 40 MG VIAL IV PUSH (08:40)
--- NOTE | 2023-05-12 09:22 | PC.NURSE ---
Patient to GI lab for EGD + colonoscopy.
--- NOTE | 2023-05-12 09:32 | WPDANESEPPF ---
Anes - Initial Pre Proc Eval Procedure: Operation Date: 05/12/23 10:45 Proposed Procedures p Esophagogastroduodenoscopy & Colonoscopy - Tomás Jovel MD Date/Time: 05/12/23 09:32 Surgeon: Abran Koehler MD Pre Op Diagnosis: Anemia Patient Data Age: 72 Gender: M Height: 1.73 m Weight: 51.7 kg Last Vital Signs Temp 37.0 C 05/12/23 08:00 Pulse 73 05/12/23 08:40 Resp 16 05/12/23 08:00 BP 132/60 05/12/23 08:00 Pulse Ox 99 05/12/23 08:00 O2 Del Method Room Air 05/12/23 08:26 Allergies Allergy/AdvReac Type Severity Reaction Status Date / Time No Known Allergies Allergy Verified 05/12/23 09:27 Home Medications Medication Instructions Recorded Confirmed Type aspirin 81 mg tablet,delayed 81 mg PO DAILY 11/11/19 05/09/23 History release (Adult Low Dose Aspirin) ramipril 5 mg capsule 5 mg PO DAILY 09/06/20 05/09/23 History simvastatin 40 mg tablet 40 mg PO DAILY 09/06/20 05/09/23 History rivaroxaban 2.5 mg tablet (Xarelto) 2.5 mg PO DAILY 09/19/21 05/09/23 History cholecalciferol (vitamin D3) 125 125 mcg PO DAILY 05/09/22 05/09/23 History mcg (5,000 unit) capsule budesonide 160 mcg-glycopyr 9 2 inh inhalation QAM AND QPM #10.7 09/24/22 05/09/23 Rx mcg-formot 4.8 mcg/actuation HFA grams inhaler (Breztri Aerosphere) carvedilol 6.25 mg tablet 3.125 mg PO BID #90 tabs 02/17/23 05/09/23 Rx donepezil 10 mg tablet 10 mg PO QHS #30 tabs 03/08/23 05/09/23 Rx Laboratory Tests 05/11/23 05/12/23 09:49 04:57 WBC 12.1 H K/mm3 12.3 H K/mm3 (4.5-10.0) (4.5-10.0) RBC 4.15 L M/mm3 3.77 L M/mm3 (4.6-6.20) (4.6-6.20) Hgb 10.2 L g/dL 9.1 L g/dL (14.0-18.0) (14.0-18.0) Hct 33.7 L % 30.6 L % (42.0-52.0) (42.0-52.0) MCV 81.2 fl 81.2 fl (80-100) (80-100) MCH 24.6 L pg 24.1 L pg (26-34) (26-34) MCHC 30.3 L g/dl 29.7 L g/dl (32-36) (32-36) RDW 22.3 H % 23.1 H % (11.5-14.5) (11.5-14.5) Plt Count 444 H k/mm3 389 H k/mm3 (150-375) (150-375) MPV 8.9 fl 8.6 fl (7.4-10.4) (7.4-10.4) Sodium 138 mmol/L 136 L mmol/L (137-145) (137-145) Potassium 3.5 mmol/L 3.5 mmol/L (3.4-5.0) (3.4-5.0) Chloride 103 mmol/L 104 mmol/L (98-107) (98-107) Carbon Dioxide 28 mmol/L 29 mmol/L (22-30) (22-30) Anion Gap 7 L mmol/L 3 L mmol/L (8-16) (8-16) BUN 13 mg/dL 16 mg/dL (9-20) (9-20) Creatinine 0.80 mg/dL 0.70 mg/dL (0.7-1.3) (0.7-1.3) Estim Creat Clear Calc 53 ml/min 59 ml/min Estimated GFR > 60 > 60 (59 - ) (59 - ) Glucose 99 mg/dL 93 mg/dL (65-110) (65-110) Calcium 9.3 mg/dL 8.7 mg/dL (8.4-10.2) (8.4-10.2) Patient hx anesthesia problems: none Family hx anesthesia problems: none Results Review: All pre-operative results and documents have been reviewed as part of the pre-operative evaluation. PMFSH Past Medical History Medical History (Updated 05/11/23 @ 17:52 by Tomás Jovel MD) COPD mixed type Coronary artery disease Dementia Duodenal ulcer Essential (primary) hypertension Gastro-esophageal reflux disease without esophagitis Protein calorie malnutrition Tobacco dependence Surgical History Surgical History H/O wrist surgery History of ankle surgery History of hernia repair History of PTCA 4 heart stents Hx of tonsillectomy Family History Family History Mother Patient's mother is Father Patient's father is Sibling Family history of malignant neoplasm of ovary Grandparent Acute myocardial infarction Social History Social History (Updated 05/09/23 @ 22:56 by Carla Dixon PA-C) Social History: Surrogate medical decision maker: Riley Meyers, . Code status: Full code. Smoking packs per day: 1.5 Smoking ci
[2023-05-12] MEDS: LACTATED RINGERS 1,000 ML 150 ML IV CONT (09:42)
--- NOTE | 2023-05-12 09:54 | SUR.OPER ---
Oral suction used by SOFY
--- NOTE | 2023-05-12 09:54 | SUR.OPER ---
EGD start 949 end 955, Colonoscopy start 100
--- NOTE | 2023-05-12 10:35 | PM.IMPN ---
Progress Note: A&P Assessment and Plan (1) Profound anemia: Code(s): D64.9 - Anemia, unspecified Status: Acute Assessment and Plan: Hemoglobin was 4.2. Improved after 3 units PRBC transfusion. Continue PPI GI consulted. Plan for EGD and colonoscopy today (2) Pleural effusion: Code(s): J90 - Pleural effusion, not elsewhere classified Status: Acute Assessment and Plan: Discontinue IV fluids Discontinue IV Lasix Start on oral Lasix (3) Elevated troponin: Code(s): R77.8 - Other specified abnormalities of plasma proteins Status: Acute Assessment and Plan: Likely demand ischemia from anemia (4) Weight loss: Code(s): R63.4 - Abnormal weight loss Status: Acute Assessment and Plan: CT scan of the chest abdomen pelvis negative for any malignancy. GI workup pending (5) COPD mixed type: Code(s): J44.9 - Chronic obstructive pulmonary disease, unspecified Status: Acute (6) Coronary artery disease: Code(s): I25.10 - Atherosclerotic heart disease of [place] coronary artery without angina pectoris Status: Acute Assessment and Plan: Continue beta-renee and LEOBARDO-inhibitor (7) Dementia: Code(s): F03.90 - Unspecified dementia, unspecified severity, without behavioral disturbance, psychotic disturbance, mood disturbance, and anxiety Status: Acute (8) Peripheral arterial disease: Code(s): I73.9 - Peripheral vascular disease, unspecified Status: Acute Assessment and Plan: Pedal pulses not palpable in bilateral lower extremities. Bilateral lower extremity duplex shows moderate stenosis. Consult vascular surgery Subjective Date/time seen: 05/12/23 10:35 Interval history: Same as before Review of Systems Review of Systems: All systems reviewed & are unremarkable except as noted in HPI and below Exam Narrative: General: Ill, cachectic male supine in bed. Weight: 51.3 kg. BMI: 17.2. HEENT: PERRL, EOMI. Sclera anicteric. Conjunctiva are pale. Tacky mucous membranes. Neck: Supple. Respiratory: Respirations are nonlabored. Lung sounds are a bit diminished at the bases with faint crackles on the left. Cardiovascular: Regular rate and rhythm with S1-S2. Gastrointestinal: Abdomen is soft, nontender, and nondistended with positive bowel sounds. Skin: Warm and dry. Generalized pallor. Extremities: No cyanosis or clubbing. Bilateral lower extremity edema, right greater than left. Radial pulses palpable. Pedal pulses difficult to palpate but feet are perfused. Neurological: Somnolent but will arouse to voice. Cranial nerves 2-12 are grossly intact. Generalized weakness without gross focal findings. Psychiatric: Somnolent. Flat mood and affect. Objective Data Vital Signs Vital Signs: Vital Signs - 24 hr 05/11/23 10:50 05/11/23 10:50 05/11/23 14:10 Temperature 98.0 F Pulse Rate 70 Respiratory Rate 14 Blood Pressure 102/54 L 94/57 L 112/62 Pulse Oximetry 98 Oxygen Delivery Oxygen Flow Rate 05/11/23 19:57 05/11/23 20:02 05/11/23 20:05 Temperature 97.7 F 97.6 F 98.3 F Pulse Rate 78 93 100 Respiratory Rate 18 18 18 Blood Pressure 100/53 L 109/84 101/48 L Pulse Oximetry 100 100 100 Oxygen Delivery Oxygen Flow Rate 05/11/23 20:19 05/11/23 20:00 05/12/23 00:00 Temperature 97.7 F 97.8 F Pulse Rate 100 78 71 Respiratory Rate 18 18 Blood Pressure 100/53 L 108/72 Pulse Oximetry 100 100 Oxygen Delivery Oxygen Flow Rate 05/12/23 04:00 05/12/23 08:00 05/12/23 08:26 Temperature 97.9 F 98.6 F Pulse Rate 72 73 Respiratory Rate 18 16 Blood Pressure 124/63 132/60 Pulse Oximetry 95 99 Oxygen Delivery Room Air Oxygen Flow Rate 05/12/23 08:40 05/12/23 09:28 05/12/23 08:00 Temperature 97.1 F L Pulse Rate 73 69 Respiratory Rate 20 Blood Pressure 121/66 Pulse Oximetry 100 Oxygen Delivery Room Air Room Air Oxygen Flow
--- NOTE | 2023-05-12 10:58 | PCPTNOTE ---
Attempted to see patient for PT, however patient was out of the room for testing.
--- NOTE | 2023-05-12 11:03 | PC.NURSE ---
Patient back from GI lab.
[2023-05-12] MEDS: FLUCONAZOLE 100 MG TABLET PO (12:51)
[2023-05-12] MEDS: NYSTATIN 100,000 UNITS/ML SUSP 5 ML ORAL.SUSP PO ×3 (12:51→20:32)
--- NOTE | 2023-05-12 13:24 | PCPTNOTE ---
Attempted to see patient for PT, however patient declined. Patient had EGD and colonoscopy this morning and wanted to rest at this time.
[2023-05-12] MEDS: DONEPEZIL HCL 10 MG TABLET PO (20:32)
[2023-05-13 06:00] VITALS: BP 133/64; PULSE 69; RESP 18; TEMP 37.3; O2SAT 98
[2023-05-13 06:33] LABS: HIV 1/2 Ab P24 Ag Result Negative (Negative)
[2023-05-13 08:08] VITALS: PULSE 69
[2023-05-13] MEDS: carvediloL 3.125 MG TABLET PO (08:08)
[2023-05-13] MEDS: NYSTATIN 100,000 UNITS/ML SUSP 5 ML ORAL.SUSP PO (08:09)
[2023-05-13] MEDS: FUROSEMIDE 20 MG TABLET PO (08:09)
[2023-05-13] MEDS: FLUCONAZOLE 100 MG TABLET PO (08:09)
[2023-05-13] MEDS: CHOLECALCIFEROL 1,000 UNITS TABLET 5000 UNITS PO (08:09)
[2023-05-13] MEDS: ramipriL 5 MG CAPSULE PO (08:10)
[2023-05-13] MEDS: PANTOPRAZOLE 40 MG TABLET PO (08:10)
[2023-05-13] MEDS: SIMVASTATIN 20 MG TABLET 40 MG PO (08:10)
--- NOTE | 2023-05-13 08:21 | P.CDI_ITS ---
CDI Query Clarification Request BMI 17.2 Nutritional Diagnostic Statement Moderate protein calorie malnutrition related to loss of appetite, as evidence by intakes < 75% needs > 1 month; severe muscle wasting and fat loss as above Please refer to the comprehensive nutrition assessment for further information. Please clarify severity of protein calorie malnutrition: * Mild * Moderate * Severe * Other/ Unspecified <Lashawn Cruz RN - Last Filed: 05/13/23 08:25> Severe malnutrition bMI 17.2 Nutritional Diagnostic Statement Moderate protein calorie malnutrition related to loss of appetite, as evidence by intakes < 75% needs > 1 month; severe muscle wasting and fat loss as above Please refer to the comprehensive nutrition assessment for further information. Please clarify severity of protein calorie malnutrition: * Mild * Moderate * Severe * Other/ Unspecified <Abran Koehler MD - Last Filed: 05/13/23 10:14>
[2023-05-13] MEDS: FLUTICASONE/UMECLIDIN/VILANTER 100-62.5-25 MCG ELLIPTA 1 PUFF INHALATION (09:20)
[2023-05-13 09:22] VITALS: PULSE 74; RESP 18; O2SAT 97
--- NOTE | 2023-05-13 10:11 | PM.DS ---
DS: Admitting Diagnosis Discharge Date 05/13/2023 Admitting Diagnosis Anemia Weakness DS: Discharge Diagnosis Discharge Diagnosis (1) Profound anemia: Code(s): D64.9 - Anemia, unspecified Status: Acute (2) Dementia: Code(s): F03.90 - Unspecified dementia, unspecified severity, without behavioral disturbance, psychotic disturbance, mood disturbance, and anxiety Status: Acute (3) Peripheral arterial disease: Code(s): I73.9 - Peripheral vascular disease, unspecified Status: Acute (4) Protein calorie malnutrition: Code(s): E46 - Unspecified protein-calorie malnutrition Status: Acute DS: Summary Hospital Course Hospital Course: The patient presented to the emergency department for evaluation of weakness, shortness of breath, and fall as per HPI. He was found to have profound anemia with hemoglobin of 4. He was transfused 3 units PRBC after which his hemoglobin improved. GI was consulted. Patient was started on PPI. echocardiogram and carotid Doppler ultrasounds ordered for further evaluation. Venous Doppler ultrasounds of the lower extremities were negative for DVT however and PE seems less likely as he is on Xarelto. He does have bilateral effusions on imaging and an elevated proBNP thus he will need to be diuresed while he is being transfused to a stable hemoglobin. Iron studies are pending. He is on Xarelto but does not know why (he denies known history of DVT, PE, and atrial fibrillation). Hold aspirin and Xarelto for now. Continue beta-renee and statin. Patient underwent EGD and colonoscopy. EGD showed esophagitis and gastritis but no ulcers. Colonoscopy showed polyps and internal hemorrhoids. His peripheral pulses were not palpable but he has a history of chronic peripheral arterial disease. We ordered arterial duplex which confirmed the findings of peripheral arterial disease. Patient advised to follow-up with his PCP regarding these findings. Patient has generalized weakness but otherwise stable. We discussed option of going to rehab but patient does not want to go to rehab. Will discharge him home with home health for PT and OT Time Spent with Patient Time attestation: Total time spent providing and/or coordinating discharge services: DS: Data Data Completed and Pending Pending studies at discharge: Pending at discharge 05/12/23 10:02 Surgical [PTH] Routine Surgical [PTH] Routine Labs on day of discharge: Labs from last 24 hours 05/13/23 05:03 HIV 1&2 Ab/P24 Ag 4thGn Negative Discharge Plan Discharge Consulting providers: Yanelis Callaway; Tomás Jovel Discharging Clinician: Abran Koehler Anticipated Discharge Date/Time: 05/13/23 10:10 Patient Disposition: Home Health Service Activity: no preference Diet: heart healthy Discharge Instructions: Needs follow up with a vascular team. Patient Instructions: Antibiotic Form, Rivaroxaban (By mouth), How to Stop Smoking (DC) Stand Alone Forms: General Discharge Information Follow-up/Referrals: Victoriano Durand, [Primary Care Provider] - Discharge Medications: New pantoprazole 40 mg Tablet,Delayed Release (Dr/Ec) 40 mg PO QAM Qty: 30 0RF sucralfate 100 mg/mL Suspension 1,000 mg PO ACHS Qty: 30 0RF Continued aspirin [Adult Low Dose Aspirin] 81 mg tablet,delayed release (DR/EC) 81 mg PO DAILY ramipril 5 mg capsule 5 mg PO DAILY simvastatin 40 mg tablet 40 mg PO DAILY carvedilol 6.25 mg tablet 3.125 mg PO BID Qty: 90 0RF Xarelto 2.5 mg tablet 2.5 mg PO DAILY cholecalciferol (vitamin D3) 125 mcg (5,000 unit) Capsule 125 mcg PO DAILY Breztri Aerosphere 160-9-4.8 mcg/actuation HFA aerosol inhaler 2 inh inhalation QAM AND QPM Qty: 10.7 5RF donepezil 10 mg tablet 10 mg PO QHS Qty: 30 5RF Date of admission: 05/09/23 16:15 Primary Care Provider: Victoriano Durand Admitting
--- NOTE | 2023-05-13 10:45 | PCPTNOTE ---
Patient refused treatment this session due to anticipated discharge.
[2023-05-13] MEDS: SUCRALFATE SUSP 100 MG/ML 10 ML UDC 1000 MG PO (12:05)
--- NOTE | 2023-05-13 12:34 | PCWOUND ---
Received nurse driven consult about pressure ulcer present. Spoke with Tali CARVAJAL for patient, states the wound on coccyx has previously been charted as a scab, but today during assessment she noted it to be open. Patient being discharged today, RN took a photo of the area. States wound care does not need to see him.
--- NOTE | 2023-05-13 12:57 | WPDGIPROGNO ---
Progress Note: A&P Assessment and Plan (1) Kathie esophagitis: Code(s): B37.81 - Candidal esophagitis Status: Acute Assessment and Plan: bx c/w kathie will send prescription for 7 more days of fluconazole hiv negative (2) Protein calorie malnutrition: Code(s): E46 - Unspecified protein-calorie malnutrition Status: Acute Assessment and Plan: encourage to eat more also stop smoking (3) Profound anemia: Code(s): D64.9 - Anemia, unspecified Status: Acute Assessment and Plan: egd and colonoscopy without signs of bleeding recommended to follow-up with hematology as outpatient next colonoscopy in 3 years because of polyps removed (4) Syncope: Code(s): R55 - Syncope and collapse Status: Acute Assessment and Plan: resolved (5) Weight loss: Code(s): R63.4 - Abnormal weight loss Status: Acute (6) Peripheral arterial disease: Code(s): I73.9 - Peripheral vascular disease, unspecified Status: Acute Subjective Date/time seen: 05/13/23 12:57 Interval history: tolerating diet egd yesterday found kathie esophagitis, colon with polyps but no signs of bleeding. this was discussed with Review of Systems Review of Systems: All systems reviewed & are unremarkable except as noted in HPI and below Exam Const: General: comfortable Other: cachectic HENMT: Face/Nose/Sinus: Normal nares present Eyes: General: appearance normal, both eyes and all related structures Neck: Neck: supple Resp: Auscultation: clear to auscultation bilaterally Cardio: Rate: regular rate GI: GI Palp: Yes Soft to palpation, No Tenderness to palpation present (GI) and No Guarding due to palpation present (GI) Auscultation: normal bowel sounds Skin: General skin exam: no rashes or lesions noted Neuro: Speech: normal speech Motor exam (neuro): 5/5 motor strength present throughout Extrem: General: normal to inspection Psych: Affect: normal affect Objective Data Vital Signs Vital Signs: Vital Signs - 24 hr 05/12/23 14:00 05/12/23 14:05 05/12/23 20:00 Temperature 99.7 F H Pulse Rate 80 Respiratory Rate 18 Blood Pressure 106/55 L 84/49 L 113/77 Pulse Oximetry 97 Oxygen Delivery Fraction of Inspired Oxygen 05/12/23 20:26 05/12/23 20:29 05/12/23 20:32 Temperature 99.8 F H 99.5 F Pulse Rate 98 100 100 Respiratory Rate 18 18 Blood Pressure 113/49 L 102/64 Pulse Oximetry 97 97 Oxygen Delivery Fraction of Inspired Oxygen 05/12/23 22:00 05/13/23 06:00 05/13/23 08:08 Temperature 99.7 F H 99.1 F Pulse Rate 82 69 69 Respiratory Rate 18 18 Blood Pressure 119/61 133/64 Pulse Oximetry 96 98 Oxygen Delivery Fraction of Inspired Oxygen 05/13/23 09:22 05/13/23 09:22 05/13/23 08:00 Temperature Pulse Rate 74 Respiratory Rate 18 Blood Pressure Pulse Oximetry 97 Oxygen Delivery Room Air Room Air Fraction of Inspired Oxygen 21 Intake/Output Intake/Output: Intake & Output 05/10/23 05/11/23 05/12/23 05/13/23 23:59 23:59 23:59 23:59 Intake Total 1230 680 540 240 Output Total 2580 455 150 Balance -1350 225 390 240 Meds/Results Radiology Results: ITS Impressions Chest X-Ray 05/09/23 13:18 IMPRESSION: Bilateral hyperinflation; no active cardiopulmonary disease Aortic and probable coronary artery calcification Chest/Abdomen/Pelvis CT 05/09/23 14:05 Impression: [id number] left pleural effusion and small right pleural effusion. Probable mild emphysema. Mild intrahepatic biliary dilatation, uncertain calcified. No definite obstructing mass identified. Correlate with LFTs. Bilateral nonobstructing nephrolithiasis. Urinary bladder wall thickening suspected. Correlate for cystitis. Enlarged prostate gland. [id number] bilateral hydroceles. Venous Doppler Study 05/09/23 22:18 IMPRESSION: 1. Patent
== END 2023-05-13 12:45 | disposition home health service (06) | DRG 811 ==
LOC: ANHED 15:28 → ANHIMU 17:19 → ANH2MED 05-11 11:23
PROVIDERS: Internal Medicine Gastroenterology; Physician Assistant; Admitting Provider Internal Medicine; Emergency Provider Nurse Practitioner Adult Health; PCP Internal Medicine; Visit Provider Hospitalist
PROC: 0DJ08ZZ Inspection of Upper Intestinal Tract, Via Natural or Artificial Opening Endoscopic (ICD-10-PCS; CPT 43235; principal; 2023-05-12 10:45)
DX: D64.9 Anemia, unspecified (principal); E43 Unspecified severe protein-calorie malnutrition; Z68.1 Body mass index [BMI] 19.9 or less, adult; B37.81 Candidal esophagitis; J90 Pleural effusion, not elsewhere classified; I24.8 Other forms of acute ischemic heart disease; R64 Cachexia; K44.9 Diaphragmatic hernia without obstruction or gangrene; K29.70 Gastritis, unspecified, without bleeding; K63.5 Polyp of colon; K64.8 Other hemorrhoids; R55 Syncope and collapse; I73.9 Peripheral vascular disease, unspecified; R62.7 Adult failure to thrive; F03.90 Unspecified dementia, unspecified severity, without behavioral disturbance, psychotic disturbance, mood disturbance, and anxiety; E55.9 Vitamin D deficiency, unspecified; I25.10 Atherosclerotic heart disease of native coronary artery without angina pectoris; J44.9 Chronic obstructive pulmonary disease, unspecified; K21.9 Gastro-esophageal reflux disease without esophagitis; I10 Essential (primary) hypertension; F17.210 Nicotine dependence, cigarettes, uncomplicated; Z79.82 Long term (current) use of aspirin; Z95.5 Presence of coronary angioplasty implant and graft
CPT/HCPCS: 36415; 36430; 70450; 71045; 71260; 74177; 80048; 80053; 81003; 82607; 82728; 82746; 83540; 83550; 83735; 83880; 84443; 84484; 85025; 85027; 85046; 85730; 86703; 86850; 86900; 86901; 86920; 88305; 92610; 93005; 93306; 93925; 93970; 94640; 97161; 97165; 99285; A9270; C9113; G0432; J1940; J2370; J2704; J7050; J7120; P9016; Q9967

== ENCOUNTER 2023-06-30 12:29 | Outpatient (CLI) | payer MEDICARE, OTHER, SELFPAY ==
[2023-06-30 13:06] LABS: Basophils Absolute Auto 0.1 K/mm3 (0.0-0.1); Basophils Percent Auto 1.2 % (0.2-1.2); Eosinophils Absolute Auto 0.1 K/mm3 (0-0.3); Eosinophils Percent Auto 1.7 % (0-4.4); Hematocrit 25.6 % (42.0-52.0); Hemoglobin 7.4 g/dL (14.0-18.0); Immature Granulocyte Absolute 0.03 K/mm3 (0.00-0.031); Immature Granulocyte Percent A 0.4 % (0-0.5); Lymphocytes Absolute Auto 1.43 K/mm3 (0.9-3.2); Lymphocytes Percent Auto 19.8 % (18.3-44.2); Mean Corpuscular HGB Conc 28.9 g/dl (32-36); Mean Corpuscular Hemoglobin 24.9 pg (26-34); Mean Corpuscular Volume 86.2 fl (80-100); Monocytes Absolute Auto 1.1 K/mm3 (0.1-0.6); Monocytes Percent Auto 14.8 % (2.6-8.5); Neutrophils Absolute Auto 4.5 K/mm3 (1.3-6.7); Neutrophils Percent Auto 62.1 % (45.5-73.1); Platelet Count Result 578 k/mm3 (150-375); Red Blood Count 2.97 M/mm3 (4.6-6.20); Red Cell Distribution Width 21.9 % (11.5-14.5); White Blood Count 7.2 K/mm3 (4.5-10.0)
[2023-06-30 13:21] LABS: Alanine Aminotransferase 14 U/L (6-50); Albumin Level 3.8 g/dL (3.5-5.1); Alkaline Phosphatase 83 U/L (38-126); Anion Gap 4 mmol/L (8-16); Aspartate Amino Transferase 20 U/L (17-59); Bilirubin,Total 0.2 mg/dL (0.2-1.3); Blood Urea Nitrogen 9 mg/dL (9-20); Calcium 9.4 mg/dL (8.4-10.2); Carbon Dioxide 32 mmol/L (22-30); Chloride 103 mmol/L (98-107); Estimated Glomerular Filt Rate > 60; Glucose 103 mg/dL (65-110); Potassium 3.5 mmol/L (3.4-5.0); Sodium 139 mmol/L (137-145)
[2023-06-30 14:11] LABS: Hypochromasia 1+ (NORMAL); Platelet Estimate Increased (Adequate); Poikilocytosis 1+ (NORMAL)
[2023-06-30 14:12] LABS: Crenated RBC 1+ (NORMAL); Schistocytes 1+ (NORMAL)
[2023-06-30 14:13] LABS: Anisocytosis 1+ (NORMAL); Ovalocytes 1+ (NORMAL)
== END 2023-06-30 12:30 | disposition home or self-care (01) ==
PROVIDERS: PCP Internal Medicine; Visit Provider Internal Medicine Cardiovascular Disease
DX: I25.118 Atherosclerotic heart disease of native coronary artery with other forms of angina pectoris (principal); E78.5 Hyperlipidemia, unspecified; R63.4 Abnormal weight loss; J44.9 Chronic obstructive pulmonary disease, unspecified; I10 Essential (primary) hypertension; Z72.0 Tobacco use
CPT/HCPCS: 36415; 80053; 85025

== ENCOUNTER 2023-07-09 10:20 | Outpatient (CLI) | payer MEDICARE, OTHER, SELFPAY ==
[2023-07-09 10:49] LABS: Basophils Absolute Auto 0.1 K/mm3 (0.0-0.1); Basophils Percent Auto 1.3 % (0.2-1.2); Eosinophils Absolute Auto 0.1 K/mm3 (0-0.3); Eosinophils Percent Auto 1.5 % (0-4.4); Hematocrit 27.8 % (42.0-52.0); Immature Granulocyte Absolute 0.04 K/mm3 (0.00-0.031); Immature Granulocyte Percent A 0.5 % (0-0.5); Lymphocytes Absolute Auto 1.55 K/mm3 (0.9-3.2); Lymphocytes Percent Auto 20.6 % (18.3-44.2); Mean Corpuscular HGB Conc 28.8 g/dl (32-36); Mean Corpuscular Hemoglobin 24.8 pg (26-34); Mean Corpuscular Volume 86.3 fl (80-100); Monocytes Percent Auto 13.1 % (2.6-8.5); Neutrophils Absolute Auto 4.8 K/mm3 (1.3-6.7); Platelet Count Result 706 k/mm3 (150-375); Red Blood Count 3.22 M/mm3 (4.6-6.20); Red Cell Distribution Width 21.6 % (11.5-14.5); White Blood Count 7.5 K/mm3 (4.5-10.0)
[2023-07-09 11:10] LABS: Platelet Estimate Increased (Adequate)
[2023-07-09 11:11] LABS: Anisocytosis 3+ (NORMAL); Hypochromasia 2+ (NORMAL); Schistocytes None Seen (NORMAL)
== END 2023-07-09 10:21 | disposition home or self-care (01) ==
PROVIDERS: PCP Internal Medicine; Visit Provider Internal Medicine
DX: D64.9 Anemia, unspecified (principal)
CPT/HCPCS: 36415; 85025

== ENCOUNTER 2023-10-14 23:31 | Inpatient (IN) | payer MEDICARE, OTHER, SELFPAY ==
--- NOTE | ~2023-10-14 | CT_ITS ---
CT head without contrast Indication: Weakness COMPARISON: 05/10/2023 Technique: Serial scans were obtained through the brain without the administration of contrast. Dose reduction technique was used on this scan by utilizing automated exposure control and iterative recon struction technique. The dose-length product (DLP) was 605.33 mGy-cm. Findings: There is no evidence of intracranial hemorrhage, mass lesion, or acute infarct. The ventri cles and subarachnoid spaces are dilated, consistent with mild atrophy. Low attenuation regions are seen within the periventricular white matter bilaterally, likely representing changes from chronic mi crovascular ischemic disease. There is no evidence of edema, mass effect or midline shift. The visu alized paranasal sinuses and mastoid air cells are clear. Impression: No intracranial hemorrhage, mass, or acute infarct. Atrophy and chronic white matter changes, as above. Reviewed, dictated and finalized at location . D BUILDER Impression: No intracranial hemorrhage, mass, or acute infarct. Atrophy and chronic white matter changes, as above.
--- NOTE | ~2023-10-14 | CT_ITS ---
Noncontrast CT scan of the cervical spine Technique: Multiple contiguous axial [address] images of the cervical spine were obtained and rec onstructed in 2D sagittal and coronal planes on the acquisition scanner. Dose reduction technique was used on this scan by utilizing automated exposure control, adjustment of the mA and/or kV according to patient size. The dose-length product (DLP) was 316.59 mGy-cm. Clinical History: Pain Findings: No fractures or dislocations. There is moderate to advanced degenerative disc narrowing at C5-C6. There is moderate degenerative disc narrowing at C6-C7. There is degenerative change at the a rticulation of the odontoid process with the anterior arch of C1. At C2-C3, there is bilateral facet arthropathy, right worse than left, probable minimal bilateral sara ral foraminal narrowing. At C3-C4, there is bilateral facet arthropathy and bilateral neural foraminal narrowing, right worse than left. At C4-C5, there is probable left neural foraminal narrowing. At C5-C6, there is bilateral neural foraminal narrowing with disc osteophyte complex and facet arthro renzo. At C6-C7, there is probable bilateral neural foraminal narrowing. No prevertebral soft tissue swelling. Lung apices demonstrate emphysematous change and probable calci fied probable granulomas. Tiny left pneumothorax present at the left lung apex. Impression: No fracture or subluxation of the cervical spine. Degenerative spondylosis of the cervical spine, as above. Tiny left apical pneumothorax. Reviewed, dictated and finalized at [facility]. ION PLANNER Impression: No fracture or subluxation of the cervical spine. Degenerative spondylosis of the cervical spine, as above. Tiny left apical pneumothorax.
--- NOTE | ~2023-10-14 | XR_ITS ---
EXAMINATION: XR barium swallow modified DATE: 10/17/2023 14:34 INDICATION: Choking. TECHNIQUE: The patient was given barium-containing material of multiple consistencies to swallow by t jr speech pathologist while I performed fluoroscopy. Fluoroscopy exposure time was 1.5 minutes. The n umber of fluoroscopy images saved to the PACS was 1. Dose-area product was 1.211 Gy-cm^2. FINDINGS: There is reduced laryngeal elevation. There is trace laryngeal penetration with thin liquids. IMPRESSION: 1. Trace laryngeal penetration with thin liquids. No aspiration. 2. Please refer to the speech therapy report for recommendations. Reviewed, dictated and finalized at location A. CAL SERVICE REPRESENTATIVE
--- NOTE | ~2023-10-14 | CT_ITS ---
Clinical Indication: Trauma CT Scan of the Chest, Abdomen, and Pelvis with Contrast: Technique: Contiguous sections were acquired throughout the chest, abdomen, and pelvis after intraven ous administration of 100 cc of Omnipaque 350. Dose reduction technique was used on this scan by uti lizing automated exposure control and iterative reconstruction technique. The dose-length product (DL P) was 316.59 mGy-cm. COMPARISON: 05/09/2023 Findings: There is no evidence of any significant mediastinal, hilar or axillary lymphadenopathy. No pulmonary embolus seen. No aortic aneurysm or dissection. There are atherosclerotic calcifications of the coron sundeep arteries and aorta. Minimal right pleural effusion present. No left pleural effusion. No pericardial effusion. Mild to moderate emphysema present. Tiny left apical pneumothorax present. Several scattered subcenti meter right lung pulmonary nodules are stable from prior exam. There are minimally displaced fracture s of the right eighth and ninth ribs posteriorly. The liver, spleen, pancreas, gallbladder, and adrenal glands are within normal limits. Probable nonob structing bilateral renal stones versus renal vascular calcifications. There are atherosclerotic calc ifications of the aorta. No lymphadenopathy. No bowel obstruction or bowel wall thickening. There is no evidence to suggest acute appendicitis. Mild diffuse urinary bladder wall thickening present. Prostate gland is markedly enlarged, indenting through the bladder base. No ascites. Impression: Tiny left apical pneumothorax. Minimally displaced fractures of the right eighth and ninth ribs posteriorly. Urinary bladder wall thickening suggests cystitis. Markedly enlarged prostate gland. Mild to moderate emphysema. Stable subcentimeter right lung nodules. Probable bilateral nephrolithiasis, unchanged. Reviewed, dictated and finalized at [facility]. SH REMOVER Impression: Tiny left apical pneumothorax. Minimally displaced fractures of the right eighth and ninth ribs posteriorly. Urinary bladder wall thickening suggests cystitis. Markedly enlarged prostate gland. Mild to moderate emphysema. Stable subcentimeter right lung nodules. Probable bilateral nephrolithiasis, unchanged.
--- NOTE | ~2023-10-14 | XR_ITS ---
EXAMINATION: XR chest 2V DATE: 10/16/2023 11:38 INDICATION: Shortness of breath. TECHNIQUE: Frontal and lateral views of the chest were obtained. COMPARISON: Chest single view 10/15/2023, chest CT 10/15/2023 FINDINGS: There are lucencies and interstitial opacities in the lungs, consistent with emphysema. The re is mild atelectasis at the lung bases. There are small pleural effusions. No pleural effusion or p neumothorax. The heart size is normal. Again seen is a fracture of right eighth rib. IMPRESSION: 1. Emphysema. 2. Small pleural effusions. 3. Acute fracture of right eighth rib again seen. Reviewed, dictated and finalized at location A. STRIAL EDITOR
--- NOTE | ~2023-10-14 | XR_ITS ---
EXAMINATION: XR chest 1V portable Exam Date/Time: 10/15/2023 20:57 POULTRY FEED SUPERVISOR HISTORY: Increased SOB, Reassessment of Pneumo Comparison: 05/09/2023. RESULT: Lines, tubes, and devices: None. Lungs and pleura: Senescent/emphysematous change, otherwise clear. Cardiomediastinal silhouette: Stable. Other: No acute osseous or upper abdominal finding. IMPRESSION: No acute cardiopulmonary process. Reviewed, dictated and finalized at location K. TRY FEED SUPERVISOR
[2023-10-14 23:32] VITALS: BP 101/86; PULSE 123; RESP 25; TEMP 36.7; O2SAT 92
--- NOTE | 2023-10-14 23:41 | PC.NURSE ---
VORB pt. given 10 mg ivp diltiazem.
--- NOTE | 2023-10-14 23:59 | ECG_ITS ---
Measurements Intervals [place] Rate: 180 P: [place]: 0 QRS: 12 QRSD: 162 T: 0 QT: 243 QTc: 421 Interpretive Statements SUPRAVENTRICULAR TACHYCARDIA, CONSIDER ATRIAL FLUTTER RIGHT BUNDLE BRANCH BLOCK ST-T WAVE ABNORMALITY IN ANTEROLAT/INF LEADS- CONSIDER ISCHEMIA OR RATE RELATED BASELINE ARTIFACT- I, III, AVL, v1-V2, V5-V6 ABNORMAL ECG COMPARED TO ECG 05/09/2023 13:12:21 SUPRAVENTRICULAR TACHYCARDIA NOW PRESENT RIGHT BUNDLE-BRANCH BLOCK NOW PRESENT Electronically Signed On 10-15-2023 6:19:49 CLERK GENERAL OFFICE by Christiano Parra D.O.
[2023-10-15] VITALS (35 sets, daily range): BP systolic 100–141; BP diastolic 56–69; PULSE 71–118; RESP 15–24; TEMP 36.1–36.6; O2SAT 94–100; BMI 16.1
--- NOTE | 2023-10-15 | ECG_ITS ---
Measurements Intervals [place] Rate: 109 P: 77 [place]: 181 QRS: 38 QRSD: 83 T: 83 QT: 403 QTc: 543 Interpretive Statements SINUS TACHYCARDIA ATRIAL PREMATURE COMPLEX INCOMPLETE RIGHT BUNDLE BRANCH BLOCK NONSPECIFIC ST & T-WAVE ABNORMALITY- DIFFUSE LEADS BASELINE ARTIFACT- I, II, III, AVR, AVL, V2 ABNORMAL ECG COMPARED TO ECG 10/14/2023 23:37:58 SINUS TACHYCARDIA NOW PRESENT Electronically Signed On 10-15-2023 6:22:28 BUGGY MAN by Christiano Parra D.O.
[2023-10-15 00:13] LABS: Basophils Absolute Auto 0.1 K/mm3 (0.0-0.1); Basophils Percent Auto 0.3 % (0.2-1.2); Eosinophils Percent Auto 0.2 % (0-4.4); Hematocrit 37.6 % (42.0-52.0); Hemoglobin 11.6 g/dL (14.0-18.0); Immature Granulocyte Absolute 0.25 K/mm3 (0.00-0.031); Immature Granulocyte Percent A 1.1 % (0-0.5); Lymphocytes Absolute Auto 1.13 K/mm3 (0.9-3.2); Lymphocytes Percent Auto 4.9 % (18.3-44.2); Mean Corpuscular HGB Conc 30.9 g/dl (32-36); Mean Corpuscular Hemoglobin 31.7 pg (26-34); Mean Corpuscular Volume 102.7 fl (80-100); Mean Platelet Volume 9.6 fl (7.4-10.4); Monocytes Absolute Auto 1.5 K/mm3 (0.1-0.6); Monocytes Percent Auto 6.7 % (2.6-8.5); Neutrophils Absolute Auto 19.9 K/mm3 (1.3-6.7); Neutrophils Percent Auto 86.8 % (45.5-73.1); Platelet Count Result 495 k/mm3 (150-375); Red Blood Count 3.66 M/mm3 (4.6-6.20); Red Cell Distribution Width 15.3 % (11.5-14.5); White Blood Count 22.9 K/mm3 (4.5-10.0)
[2023-10-15] MEDS: SODIUM CHLORIDE 0.9% IV 1,000 ML 150 ML IV CONT (00:23)
[2023-10-15 00:31] LABS: Alanine Aminotransferase 15 U/L (6-50); Albumin Level 3.9 g/dL (3.5-5.1); Alkaline Phosphatase 85 U/L (38-126); Anion Gap 13 mmol/L (8-16); Aspartate Amino Transferase 24 U/L (17-59); Bilirubin,Total 0.8 mg/dL (0.2-1.3); Blood Urea Nitrogen 17 mg/dL (9-20); Calcium 9.7 mg/dL (8.4-10.2); Carbon Dioxide 30 mmol/L (22-30); Chloride 101 mmol/L (98-107); Estimated Glomerular Filt Rate > 60; Glucose 131 mg/dL (65-110); Potassium 2.9 mmol/L (3.4-5.0); Sodium 144 mmol/L (137-145)
[2023-10-15 00:40] LABS: NT Pro B Type Natriuretic Pept 4430 pg/mL (19.9-100); Troponin I 0.028 ng/mL (0.000-0.034)
[2023-10-15 00:41] LABS: INR 1.1; Prothrombin Time 14.8 Seconds (11.1-14.7)
[2023-10-15 00:45] LABS: Lactic Acid Reflex 1.7 mmol/L (0.7-2.0)
--- NOTE | 2023-10-15 00:47 | ED.GENADULT ---
HPI - General Adult General Chief complaint: Arrhythmia/Palpitations Stated complaint: SVT, fall short of breath Time Seen by Provider: 10/14/23 23:59 History of Present Illness HPI narrative: Patient brought to the emergency department by EMS from home. Per his he has had failure to thrive and is gradually declining since seeing his best friend . Patient was admitted to the hospital min summer for generalized weakness. He has a history of COPD but does not see a instrument fitter because he ?does not like him? per the . Patient has made comments that he wishes he could just passed on. He has a DNR filled out. Denies headache chest pain or abdominal pain. Patient does not eat and has been gradually losing weight. He is very cachectic. Patient tachycardic with a history of AFib. EMS gave him adenosine with brief improvement of his heart rate prior to arrival. Heart rate 180. Lung sounds coarse he is tachypneic and tachycardic. Somewhat hypotensive with blood pressure 101/86. Patient fell a week ago and has had severe back pain since. Difficulty walking past couple days due to generalized weakness and pain Related Data Home Medications Medication Instructions Recorded Confirmed aspirin 81 mg tablet,delayed 81 mg PO DAILY 11/11/19 07/14/23 release (Adult Low Dose Aspirin) ramipril 5 mg capsule 5 mg PO DAILY 09/06/20 07/14/23 simvastatin 40 mg tablet 40 mg PO DAILY 09/06/20 07/14/23 rivaroxaban 2.5 mg tablet (Xarelto) 2.5 mg PO DAILY 09/19/21 07/14/23 cholecalciferol (vitamin D3) 125 125 mcg PO DAILY 05/09/22 07/14/23 mcg (5,000 unit) capsule furosemide 20 mg tablet 20 mg PO DAILY 07/14/23 07/14/23 Allergies Allergy/AdvReac Type Severity Reaction Status Date / Time No Known Allergies Allergy Verified 07/14/23 10:47 Review of Systems Review of Systems: Review of systems negative except what is documented in HPI [facility] Past Medical History Medical History Kathie esophagitis COPD mixed type Coronary artery disease Dementia Duodenal ulcer Essential (primary) hypertension Gastro-esophageal reflux disease without esophagitis Protein calorie malnutrition Tobacco dependence Surgical History Surgical History H/O wrist surgery History of ankle surgery History of hernia repair History of PTCA 4 heart stents Hx of tonsillectomy Family History Family History Mother Patient's mother is Father Patient's father is Sibling Family history of malignant neoplasm of ovary Grandparent Acute myocardial infarction Social History Social History Social History: Surrogate medical decision maker: Riley Meyers, . Code status: Full code. Smoking packs per day: 1.5 Smoking cigarettes per day: 30.0 Years smoked: 60 Smoking pack-years: 90.00 Smoking status: Current every day smoker Tobacco type: cigarettes Second hand tobacco smoke exposure: Yes ( also smokes) Additional smoking assessment comments: smoked up to 3 packs per day; decreased intake to 3/4 pack in the past 12mo Alcohol intake: never Drinks per week: 42 Alcohol use details: 5-6 beers per night Substance use: never Substance use type: does not use Lack of Transportation: No Lack of Food: Never True Current Housing: I Have Housing Concerned About Future Housing: No Difficulty Paying Gas/Electric Bills: No Difficulty Paying for Meds: No Currently Unemployed: No Education: Trade/Vocational Certificate Difficulty w/ Childcare or Family Care: No Living arrangements: with family Additional living arrangements comments: Lives with and son Occupation/Education: retired Spiritual care concerns: No Exam Narrative: GENERAL:
[2023-10-15 00:50] LABS: Influenza A QL RT-PCR Negative (Negative); Influenza B QL RT-PCR Negative (Negative); RSV RNA, RT-PCR Negative (Negative); SARS-CoV-2 RNA PCR Negative (Negative)
[2023-10-15 03:14] LABS: Appearance Urine Cloudy (Clear); Bilirubin Urine Negative (Negative); Blood Urine 2+ (Negative); Color Urine Yellow (Yellow); Glucose Urine UA Negative (Negative); Ketones Urine Negative (Negative); Leukocyte Esterase Ur Trace LEU/UL (Negative); Need Manual Microscopic Need Manual; Nitrate Urine Negative (Negative); Protein Urine 1+ mg/dL (Negative); RBC Urine 51-100 /hpf (0-2); Squamous Epithelial Cell Urine Occasional /hpf (Few)
[2023-10-15 03:18] LABS: Specific Grav Ur 1.057 (1.001-1.035)
[2023-10-15 03:19] LABS: Bacteria Urine 1+ /hpf; WBC Clumps Urine Present /HPF
[2023-10-15] MEDS: POTASSIUM CHLORIDE INJ 40 MEQ in SODIUM CHLORIDE 0.9% IV 500 ML 130 MEQ IVPB (03:21)
[2023-10-15 03:25] LABS: Hyaline Casts Urine 0-2 /lpf
[2023-10-15 03:26] LABS: Add Urine Microscopic? YES
[2023-10-15 03:32] LABS: Troponin I 0.042 ng/mL (0.000-0.034)
[2023-10-15] MEDS: dilTIAZem 100 MG/100 ML 100 MG/100 ML BAG IV CONT (04:54)
[2023-10-15] MEDS: MAGNESIUM SULF 2 GM/WATER 50ML 2 GM/50 ML BAG IVPB (04:58)
[2023-10-15 06:30] LABS: Magnesium 1.5 mg/dL (1.6-2.3)
--- NOTE | 2023-10-15 07:10 | PC.NURSE ---
pt resting quietly on stretcher. no distress noted. hr 90. pt denies problems or complaints. continue waiting bed assignment.
--- NOTE | 2023-10-15 08:48 | PM.IMHP ---
H&P: HPI History of Present Illness Date/Time: 10/15/23 08:48 Chief Complaint: weakness, fall Narrative: 73-year-old male with history of COPD, candidal esophagitis, heart disease, dementia, hypertension and GERD is presenting with falls and weakness and significant chest pain. In the ER, patient was found to have several rib fractures. Patient has been extremely depressed and failure to thrive since seen his best friend . states he has had significant loss of appetite due to this episode. No nausea, vomiting or diarrhea noted. No fevers or chills. In the ER, CT of chest abdomen and pelvis showed a tiny pneumothorax, right 8th and 9th rib fractures and otherwise benign. Head CT within normal limits. Cervical spine CT nonacute. Review of Systems Review of Systems: 12 point review of systems was assessed and was negative except as noted in the HPI PMFSH Past Medical History Medical History Kathie esophagitis COPD mixed type Coronary artery disease Dementia Duodenal ulcer Essential (primary) hypertension Gastro-esophageal reflux disease without esophagitis Protein calorie malnutrition Tobacco dependence Surgical History Surgical History H/O wrist surgery History of ankle surgery History of hernia repair History of PTCA 4 heart stents Hx of tonsillectomy Family History Family History Mother Patient's mother is Cerebrovascular accident Father Patient's father is Sibling Family history of malignant neoplasm of ovary Grandparent Acute myocardial infarction Social History Social History Social History: Surrogate medical decision maker: Riley Meyers, . Code status: Full code. Smoking packs per day: 2 Smoking cigarettes per day: 40.0 Years smoked: 60 Smoking pack-years: 120.00 Smoking status: Current every day smoker Tobacco type: cigarettes Second hand tobacco smoke exposure: Yes Additional smoking assessment comments: smoked up to 3 packs per day; decreased intake to 3/4 pack in the past 12mo Alcohol intake: former Drinks per week: 42 Alcohol use details: 5-6 beers per night Substance use: never Substance use type: does not use Lack of Transportation: No Lack of Food: Never True Current Housing: I Have Housing Concerned About Future Housing: No Difficulty Paying Gas/Electric Bills: No Difficulty Paying for Meds: No Currently Unemployed: No Education: Trade/Vocational Certificate Difficulty w/ Childcare or Family Care: No Living arrangements: with family Additional living arrangements comments: Lives with and son Occupation/Education: retired Spiritual care concerns: No Meds Home Medications and Allergies Home Medications Medication Instructions Recorded Confirmed Type aspirin 81 mg tablet,delayed 81 mg PO DAILY 11/11/19 10/15/23 History release (Adult Low Dose Aspirin) ramipril 5 mg capsule 5 mg PO DAILY 09/06/20 10/15/23 History simvastatin 40 mg tablet 40 mg PO DAILY 09/06/20 10/15/23 History rivaroxaban 2.5 mg tablet (Xarelto) 2.5 mg PO DAILY 09/19/21 10/15/23 History cholecalciferol (vitamin D3) 125 125 mcg PO DAILY 05/09/22 10/15/23 History mcg (5,000 unit) capsule carvedilol 6.25 mg tablet 3.125 mg PO BID #90 tabs 02/17/23 10/15/23 Rx furosemide 20 mg tablet 20 mg PO DAILY 07/14/23 10/15/23 History budesonide 160 mcg-glycopyr 9 2 inh inhalation QAM AND QPM #10.7 07/31/23 10/15/23 Rx mcg-formot 4.8 mcg/actuation HFA grams inhaler (Breztri Aerosphere) donepezil 10 mg tablet 10 mg PO QHS #30 tabs 09/11/23 10/15/23 Rx ferrous sulfate 325 mg (65 mg 325 mg PO BID #60 tabs 09/19/23 10/15/23 Rx iron) tablet Allergies Allergy/AdvReac Type
--- NOTE | 2023-10-15 11:18 | ADMGEN ---
This patient, Nikita Meyers, was admitted to IMU Room 207-01. Patient/family oriented to hospital policies and general routines including ID bracelet, bed and alarms, visiting hours, pain management, procedures, bathroom and other care routines, personal items, smoking policy, room service/diet, and visiting hours. Information on how to activate the Rapid Response Team has been discussed. Patient/Family are encouraged to report perceived risks to care and to ask questions if they do not understand what they are told or what they should do.
[2023-10-15 14:30] LABS: Magnesium 2.2 mg/dL (1.6-2.3)
[2023-10-15 14:38] LABS: NT Pro B Type Natriuretic Pept 2710 pg/mL (19.9-100)
[2023-10-15 15:38] LABS: Anion Gap 11 mmol/L (8-16); Blood Urea Nitrogen 14 mg/dL (9-20); Calcium 8.9 mg/dL (8.4-10.2); Carbon Dioxide 22 mmol/L (22-30); Chloride 109 mmol/L (98-107); Estimated CRCL calculation 58 ml/min; Estimated Glomerular Filt Rate > 60; Glucose 103 mg/dL (65-110); Sodium 142 mmol/L (137-145)
--- NOTE | 2023-10-15 16:20 | PM.CNCAR ---
Assessment and Plan Assessment and plan (1) Paroxysmal atrial fibrillation with RVR: Code(s): I48.0 - Paroxysmal atrial fibrillation Status: Acute Assessment and Plan: Patient has no prior history of atrial fibrillation (I believe he is taking low dose Xarelto because of CAD plus peripheral vascular disease) but developed AFib RVR yesterday. Converted to sinus rhythm after a dose of diltiazem. Echo in May showed an EF of 70% with inferior wall hypokinesis (history of RCA occlusion) so I will not repeat it. --TSH is pending --increase carvedilol to 6.25 mg BID --in view of the patient has weakness with falls I am concerned about increasing his Xarelto to a therapeutic dose of 20 mg daily. Will hold off on that for now and see if he improves his strength and balance. --IV diltiazem p.r.n. if he has recurrent episodes --Hypokalemic also, corrected. (2) Coronary artery disease: Code(s): I25.10 - Atherosclerotic heart disease of [place] coronary artery without angina pectoris Status: Acute Assessment and Plan: History of CAD with chronic total occlusion the right coronary artery. He had signs of ischemia on his EKG and a small bump in troponins when he was extremely tachycardic. Otherwise however no angina so I do not think we need to evaluate further. --Continue aspirin and simvastatin therapy. (3) Fracture, ribs: Qualifiers: Encounter type: initial encounter Fracture type: closed Laterality: left Qualified Code(s): S22.42XA - Multiple fractures of ribs, left side, initial encounter for closed fracture Code(s): S22.49XA - Multiple fractures of ribs, unspecified side, initial encounter for closed fracture Status: Acute Assessment and Plan: Weakness and falls with recent rib fractures --encourage patient to consider physical therapy, also better nutrition etc.. (4) Adult failure to thrive: Code(s): R62.7 - Adult failure to thrive Status: Acute Assessment and Plan: Patient has had significant weight loss, depression, some dementia with failure to thrive. --consider an antidepressant --no evidence of cancer --may need some IV fluids since he is eating poorly (5) Cigarette smoker: Code(s): F17.210 - Nicotine dependence, cigarettes, uncomplicated Status: Chronic Assessment and Plan: Continues to smoke. History of Present Illness History of Present Illness Consult date/time: 10/15/23 16:20 Reason For Visit: afib rvr Narrative: Nikita Meyers is a 73-year-old male whom I was asked to see at the request of Dr. Schneider for my advice and opinion regarding his AFib RVR, in consultation. The patient has a history of CAD, COPD, hypertension, P 80, dementia and recently with weight loss, depression and weakness. He was admitted in May with weakness and found to have a hemoglobin of 4, transfused. GI evaluation showed some esophagitis and gastritis. He is followed by Dr. Ralph for his CAD (chronically occluded RCA, multivessel stenting 2006) and had a neg stress test in 2018. Patient has had progressive weakness and decline, with poor appetite, weight loss, and able to walk only a few steps because of weakness and L[place]PE[place]. He fell Friday in the bathroom on his back. Since then he has had a lot of back pain and see basically stopped eating and drinking completely. Presented to the emergency room with falls, weakness and chest pain was found to have 2 rib fractures and a small pneumothorax on the right. He also was in AFib RVR, heart rates in the 120s-180's. He was given a dose of diltiazem 25 mg x1. Troponin 0.042, proBNP 4400, wbc's 22.9 K, Review of Systems Constitutional: Constitutional: Reports fatigue, Denies fever(s), Reports lethargy and Reports weakness Eyes: Eyes: Reports no additional eye complaints ENT: Denies dysphagia and Denies epistaxis Cardiovascular: Cardiovascular: Denies chest pain, Denies pedal
[2023-10-15 17:35] LABS: Folic Acid 19.1 ng/mL (2.76->20)
[2023-10-15] MEDS: FERROUS SULFATE 325 MG TABLET DR BY MOUTH (18:12)
[2023-10-15] MEDS: RIVAROXABAN 2.5 MG TABLET PO (18:12)
[2023-10-15] MEDS: LIDOCAINE 5% PATCH 1 PATCH TRANSDERM (20:29)
[2023-10-15] MEDS: carvediloL 6.25 MG TABLET PO (20:30)
[2023-10-15] MEDS: DONEPEZIL HCL 10 MG TABLET PO (20:31)
[2023-10-15] MEDS: MORPHINE SULFATE (*CRX) 2 MG/ML INJ IV PUSH (20:44)
[2023-10-15] MEDS: ALBUTEROL SULFATE NEB 2.5 MG/3 ML INH INHALATION (21:51)
[2023-10-15] MEDS: IPRATROPIUM BR 0.02% INH SOLN 0.5 MG/2.5 ML VIAL INHALATION (21:51)
[2023-10-16] VITALS (20 sets, daily range): BP systolic 115–151; BP diastolic 45–74; PULSE 61–92; RESP 16–22; TEMP 35.9–36.9; O2SAT 93–100
[2023-10-16 05:35] LABS: Basophils Absolute Auto 0.1 K/mm3 (0.0-0.1); Basophils Percent Auto 0.5 % (0.2-1.2); Eosinophils Absolute Auto 0.2 K/mm3 (0-0.3); Eosinophils Percent Auto 1.7 % (0-4.4); Hematocrit 29.3 % (42.0-52.0); Immature Granulocyte Absolute 0.07 K/mm3 (0.00-0.031); Immature Granulocyte Percent A 0.7 % (0-0.5); Lymphocytes Absolute Auto 1.23 K/mm3 (0.9-3.2); Lymphocytes Percent Auto 11.6 % (18.3-44.2); Mean Corpuscular HGB Conc 30.7 g/dl (32-36); Mean Corpuscular Volume 104.3 fl (80-100); Mean Platelet Volume 9.4 fl (7.4-10.4); Monocytes Absolute Auto 1.2 K/mm3 (0.1-0.6); Neutrophils Absolute Auto 7.9 K/mm3 (1.3-6.7); Neutrophils Percent Auto 74.5 % (45.5-73.1); Platelet Count Result 400 k/mm3 (150-375); Red Blood Count 2.81 M/mm3 (4.6-6.20); White Blood Count 10.6 K/mm3 (4.5-10.0)
[2023-10-16 05:45] LABS: Alanine Aminotransferase 11 U/L (6-50); Alkaline Phosphatase 71 U/L (38-126); Anion Gap 8 mmol/L (8-16); Aspartate Amino Transferase 20 U/L (17-59); Bilirubin,Total 0.4 mg/dL (0.2-1.3); Blood Urea Nitrogen 12 mg/dL (9-20); Calcium 9.1 mg/dL (8.4-10.2); Carbon Dioxide 28 mmol/L (22-30); Chloride 106 mmol/L (98-107); Estimated CRCL calculation 51 ml/min; Estimated Glomerular Filt Rate > 60; Glucose 86 mg/dL (65-110); Sodium 142 mmol/L (137-145)
[2023-10-16] MEDS: FLUTICASONE/UMECLIDIN/VILANTER 100-62.5-25 MCG ELLIPTA 1 PUFF INHALATION (08:21)
--- NOTE | 2023-10-16 08:27 | PC.NURSE ---
0804 pt having runs of asymptomatic vtach, called Dr. Sahu, received lab orders. Will continue to update doctor.
[2023-10-16 08:52] LABS: Magnesium 1.9 mg/dL (1.6-2.3)
[2023-10-16] MEDS: FERROUS SULFATE 325 MG TABLET DR BY MOUTH ×2 (09:20→17:06)
[2023-10-16] MEDS: carvediloL 6.25 MG TABLET PO ×2 (09:20→20:45)
[2023-10-16] MEDS: ramipriL 5 MG CAPSULE PO (09:20)
[2023-10-16] MEDS: CHOLECALCIFEROL 1,000 UNITS TABLET 5000 UNITS PO (09:20)
[2023-10-16] MEDS: SIMVASTATIN 20 MG TABLET 40 MG PO (09:20)
[2023-10-16] MEDS: ASPIRIN 81 MG ENTERIC TABLET PO (09:20)
[2023-10-16] MEDS: MORPHINE SULFATE (*CRX) 2 MG/ML INJ IV PUSH (09:23)
[2023-10-16 11:33] LABS: Glucose Point of Care 93 mg/dl (65-105)
[2023-10-16] MEDS: POTASSIUM CHLORIDE INJ 40 MEQ in SODIUM CHLORIDE 0.9% IV 500 ML 130 MEQ IVPB (11:51)
--- NOTE | 2023-10-16 13:45 | PM.IMPN ---
Progress Note: A&P Assessment and Plan (1) Adult failure to thrive: Code(s): R62.7 - Adult failure to thrive Status: Acute Assessment and Plan: Unsure of etiology, TSH wnl, B12 wnl Multifactorial, likely secondary to depression with dementia Initiate remeron and monitor response (2) Atrial fibrillation with rapid ventricular response: Code(s): I48.91 - Unspecified atrial fibrillation Status: Acute Assessment and Plan: Now in normal sinus rhythm, Cardiology consult appreciated, coreg dose increased Echo from May 2023 showed an EF of 70% with inferior wall hypokinesis (3) Pneumothorax: Qualifiers: Encounter type: initial encounter Pneumothorax type: traumatic Qualified Code(s): S27.0XXA - Traumatic pneumothorax, initial encounter Code(s): J93.9 - Pneumothorax, unspecified Status: Acute Assessment and Plan: supportive care, recheck CXR 10/16 No pneumothorax noted on repeat chest x-ray (4) Fracture, ribs: Qualifiers: Encounter type: initial encounter Fracture type: closed Laterality: left Qualified Code(s): S22.42XA - Multiple fractures of ribs, left side, initial encounter for closed fracture Code(s): S22.49XA - Multiple fractures of ribs, unspecified side, initial encounter for closed fracture Status: Acute Assessment and Plan: Pain management (5) Kathie esophagitis: Code(s): B37.81 - Candidal esophagitis Status: Acute Assessment and Plan: Consult GI (6) Atherosclerotic heart disease of [place] coronary artery without angina pectoris: Code(s): I25.10 - Atherosclerotic heart disease of [place] coronary artery without angina pectoris Status: Chronic Assessment and Plan: Cont home meds (7) COPD (chronic obstructive pulmonary disease): Code(s): J44.9 - Chronic obstructive pulmonary disease, unspecified Status: Acute Assessment and Plan: Does not appear to be in acute exacerbation Plan DVT prophylaxis with SCDs GI prophylaxis not indicated Code status full code Subjective Date/time seen: 10/16/23 13:45 Interval history: 73-year-old male with history of COPD, candidal esophagitis, heart disease, dementia, hypertension and GERD is presenting with falls and weakness and significant chest pain. No overnight events noted. No chest pain or shortness of breath. No nausea, vomiting or diarrhea. No fevers or chills. Still with painful swallowing, no appetite and depression. Review of Systems Review of Systems: 12 point review of systems was assessed and was negative except as noted in the HPI Exam Narrative: General: No acute distress, alert and oriented per baseline, cachectic HEENT: Atraumatic, normocephalic, mucous membranes moist CV: Regular rate and rhythm, S1, S2 Lungs: Clear to auscultation bilaterally, no rales or crackles noted, no wheezes, good air entry Abdomen: Soft, nontender, nondistended Extremities: Normal to inspection Skin: No rashes noted, no lesions or wounds seen Psych: Flattened affect, dysthymic mood, irritable Objective Data Vital Signs Vital Signs: Vital Signs - 24 hr 10/15/23 15:42 10/15/23 15:54 10/15/23 16:00 Temperature 97.7 F Pulse Rate 87 88 Respiratory Rate 20 Blood Pressure 139/69 Pulse Oximetry 100 100 Oxygen Delivery Nasal Cannula Oxygen Flow Rate 1 10/15/23 14:00 10/15/23 16:00 10/15/23 18:00 Temperature Pulse Rate 75 79 83 Respiratory Rate Blood Pressure Pulse Oximetry Oxygen Delivery Oxygen Flow Rate 10/15/23 19:40 10/15/23 20:30 10/15/23 20:46 Temperature 97 F L Pulse Rate 92 92 Respiratory Rate 20 Blood Pressure 141/69 H Pulse Oximetry 98 95 Oxygen Delivery Room Air Oxygen Flow Rate 10/15/23 21:53 10/15/23 22:00 10/15/23 23:14 Temperature 97.9 F Pulse Rate 81 73 79 Respiratory Rate 1
--- NOTE | 2023-10-16 14:02 | PM.PNCARD ---
Progress Note: A&P Assessment and Plan (1) Paroxysmal atrial fibrillation with RVR: Code(s): I48.0 - Paroxysmal atrial fibrillation Status: Acute Assessment and Plan: Patient has no prior history of atrial fibrillation (I believe he is taking low dose Xarelto because of CAD plus peripheral vascular disease) but developed AFib RVR 10/14/2023. Converted to sinus rhythm after a dose of IV diltiazem. Echo in May showed an EF of 70% with inferior wall hypokinesis (history of RCA occlusion). Has very brief episodes of PAF but no prolonged sustained episodes now. --TSH was normal --increased carvedilol to 6.25 mg BID; titrate to 12.5 BID. --in view of the patient has weakness with falls I am concerned about increasing his Xarelto to a therapeutic dose of 20 mg daily. Will hold off on that for now and see if he improves his strength and balance. --IV diltiazem p.r.n. if he has recurrent episodes --Hypokalemic also, corrected. (2) Coronary artery disease: Code(s): I25.10 - Atherosclerotic heart disease of [place] coronary artery without angina pectoris Status: Acute Assessment and Plan: History of CAD with chronic total occlusion the right coronary artery. He had signs of ischemia on his EKG and a small bump in troponins when he was extremely tachycardic. Otherwise however no angina so I do not think we need to evaluate further. --Continue aspirin and simvastatin therapy. (3) Nonsustained ventricular tachycardia: Code(s): I47.29 - Other ventricular tachycardia Status: Acute Assessment and Plan: Nonsustained V-tach noted, asymptomatic. Normal LV function suggests the risk of sudden cardiac is low. May be due to electrolyte imbalance. Does not appear to have any acute coronary syndrome. --correct hypokalemia, periodically check potassium and magnesium levels. --increased carvedilol to 12.5 mg b.i.d.. (4) Hypokalemia: Code(s): E87.6 - Hypokalemia Status: Acute Assessment and Plan: Persistent hypokalemia, probably dietary related. --given another 40 mEq of potassium IV --check again tomorrow (5) Fracture, ribs: Qualifiers: Encounter type: initial encounter Fracture type: closed Laterality: left Qualified Code(s): S22.42XA - Multiple fractures of ribs, left side, initial encounter for closed fracture Code(s): S22.49XA - Multiple fractures of ribs, unspecified side, initial encounter for closed fracture Status: Acute Assessment and Plan: Weakness and falls with recent rib fractures, tiny pneumothorax has resolved. --encourage patient to consider physical therapy, also better nutrition etc.. (6) Adult failure to thrive: Code(s): R62.7 - Adult failure to thrive Status: Acute Assessment and Plan: Patient has had significant weight loss, depression, some dementia with failure to thrive. --consider an antidepressant --no evidence of cancer --I's and O's suggests adequate p.o. intake care. (7) Cigarette smoker: Code(s): F17.210 - Nicotine dependence, cigarettes, uncomplicated Status: Chronic Assessment and Plan: Continues to smoke. Subjective Date/time seen: 10/16/23 14:02 Interval history: Follow-up for patient with paroxysmal atrial fibrillation, CAD. Admitted with falls and rib fractures with a tiny pneumothorax, failure to thrive, history of hypertension, COPD and dementia. Echo: EF 70% with inferior wall hypokinesis (known chronic total occlusion of the RCA). Date of service 10/15/2023: Converted to NSR with 1 dose of IV diltiazem. Increase carvedilol to 6.25 b.i.d.. Date of service 10/16/2023: Patient has a congested cough, but no anginal chest pain. Some SOB at times. Very complimentary of the nursing staff for helping him with his rib fracture pain. Patient has had episodes of ventricular tachycardia up to 20 and 21 beats, and some brief runs of PAFlasting for
--- NOTE | 2023-10-16 14:58 | WPDGICN ---
Assessment and Plan Assessment and plan (1) Odynophagia: Code(s): R13.10 - Dysphagia, unspecified Status: Acute Assessment and Plan: egd few months ago with ruben esophagitis (oral exam without obvious thrush) but given that he has some discomfort after eating will start oral fluconazole again (hold donepezil while on treatment to prevent interaction) discomfort also could be from rib fractures (2) History of candidiasis: Code(s): Z86.19 - Personal history of other infectious and parasitic diseases Status: Acute Assessment and Plan: empirically again with fluconazole encourage to eat (3) Adult failure to thrive: Code(s): R62.7 - Adult failure to thrive Status: Acute Assessment and Plan: by primary had egd and colonoscopy few months ago (4) Atrial fibrillation with rapid ventricular response: Code(s): I48.91 - Unspecified atrial fibrillation Status: Acute Assessment and Plan: by cardiology (5) Fracture, ribs: Qualifiers: Encounter type: initial encounter Fracture type: closed Laterality: left Qualified Code(s): S22.42XA - Multiple fractures of ribs, left side, initial encounter for closed fracture Code(s): S22.49XA - Multiple fractures of ribs, unspecified side, initial encounter for closed fracture Status: Acute Assessment and Plan: falls and h/o early dementia (6) Pneumothorax: Qualifiers: Encounter type: initial encounter Pneumothorax type: traumatic Qualified Code(s): S27.0XXA - Traumatic pneumothorax, initial encounter Code(s): J93.9 - Pneumothorax, unspecified Status: Acute Assessment and Plan: resolved treating copd (7) Fall: Qualifiers: Encounter type: initial encounter Qualified Code(s): W19.XXXA - Unspecified fall, initial encounter Code(s): W19.XXXA - Unspecified fall, initial encounter Status: Acute (8) Nonsustained ventricular tachycardia: Code(s): I47.29 - Other ventricular tachycardia Status: Acute (9) Protein calorie malnutrition: Code(s): E46 - Unspecified protein-calorie malnutrition Status: Acute (10) Dementia: Code(s): F03.90 - Unspecified dementia, unspecified severity, without behavioral disturbance, psychotic disturbance, mood disturbance, and anxiety Status: Acute (11) Weight loss: Code(s): R63.4 - Abnormal weight loss Status: Acute (12) Anemia: Code(s): D64.9 - Anemia, unspecified Status: Acute Assessment and Plan: hgb stable 9 no overt gib will order spep probably also will benefit to see hematology GI Consult Note Consult date/time: 10/16/23 14:58 Reason for consult: malnutrition, odynophagia, history of ruben esophagitis HPI: Nikita Meyers is a 73 year old male with history of smoker, coronary artery disease, hypertension, peripheral arterial disease, COPD, GERD, early dementia who I met 05/2023 with progressive weight loss and anemia. EGD with ruben esophagitis, colonoscopy with TA polyps removed, nothing to explain weight loss, HIV negative. His PCP offered referral to hematology but refused. He is here with failure to thrive, progressive weakness and falls. In the ER found to have rib fractures and small size pneumothorax (repeat CXR emphysema, small pleural effusion but no more PTX, also + Rt rib fracture).? He is not best historian, mentioned earlier that he had significant loss of appetite after best friend , also he is complaining of some discomfort after eating since he fell but no dysphagia. No report of nausea or vomiting. Review of Systems Constitutional: Constitutional: Reports weakness Eyes: Eyes: Denies blurry vision ENT: Reports Normal hearing present Cardiovascular: Cardiovascular: Reports chest pain Respiratory: Respiratory: Reports cough Gastrointestinal: Gastrointestinal: Denies nausea Genitourinar
[2023-10-16] MEDS: POTASSIUM CHLORIDE 20 MEQ ER TABLET 40 MEQ PO (17:05)
[2023-10-16] MEDS: RIVAROXABAN 2.5 MG TABLET PO (17:06)
[2023-10-16] MEDS: WATER FOR IRRIGATION, STERILE 1,000 ML BOTTLE 1000 ML (20:44)
[2023-10-16] MEDS: MIRTAZAPINE 7.5 MG TABLET PO (20:45)
[2023-10-17] VITALS (19 sets, daily range): BP systolic 141–161; BP diastolic 59–66; PULSE 63–93; RESP 16–20; TEMP 36.4–36.9; O2SAT 94–100
[2023-10-17 05:32] LABS: Basophils Absolute Auto 0.1 K/mm3 (0.0-0.1); Basophils Percent Auto 0.8 % (0.2-1.2); Eosinophils Absolute Auto 0.2 K/mm3 (0-0.3); Eosinophils Percent Auto 2.6 % (0-4.4); Hematocrit 29.9 % (42.0-52.0); Immature Granulocyte Absolute 0.04 K/mm3 (0.00-0.031); Immature Granulocyte Percent A 0.5 % (0-0.5); Lymphocytes Absolute Auto 1.17 K/mm3 (0.9-3.2); Lymphocytes Percent Auto 14.7 % (18.3-44.2); Mean Corpuscular HGB Conc 30.1 g/dl (32-36); Mean Corpuscular Hemoglobin 31.6 pg (26-34); Mean Corpuscular Volume 104.9 fl (80-100); Mean Platelet Volume 8.8 fl (7.4-10.4); Monocytes Absolute Auto 0.9 K/mm3 (0.1-0.6); Monocytes Percent Auto 11.2 % (2.6-8.5); Neutrophils Absolute Auto 5.6 K/mm3 (1.3-6.7); Neutrophils Percent Auto 70.2 % (45.5-73.1); Platelet Count Result 410 k/mm3 (150-375); Red Blood Count 2.85 M/mm3 (4.6-6.20); Red Cell Distribution Width 14.6 % (11.5-14.5)
[2023-10-17 05:47] LABS: Alanine Aminotransferase 10 U/L (6-50); Alkaline Phosphatase 68 U/L (38-126); Anion Gap 7 mmol/L (8-16); Aspartate Amino Transferase 19 U/L (17-59); Bilirubin,Total 0.4 mg/dL (0.2-1.3); Blood Urea Nitrogen 12 mg/dL (9-20); Calcium 9.2 mg/dL (8.4-10.2); Carbon Dioxide 27 mmol/L (22-30); Chloride 109 mmol/L (98-107); Estimated CRCL calculation 60 ml/min; Estimated Glomerular Filt Rate > 60; Glucose 83 mg/dL (65-110); Potassium 3.3 mmol/L (3.4-5.0); Sodium 143 mmol/L (137-145)
[2023-10-17] MEDS: FLUTICASONE/UMECLIDIN/VILANTER 100-62.5-25 MCG ELLIPTA 1 PUFF INHALATION (08:41)
--- NOTE | 2023-10-17 09:39 | PM.IMPN ---
Progress Note: A&P Assessment and Plan (1) Adult failure to thrive: Code(s): R62.7 - Adult failure to thrive Status: Acute Assessment and Plan: Unsure of etiology, TSH wnl, B12 wnl Multifactorial, likely secondary to depression with dementia Initiate remeron and monitor response Somewhat somnolent, give remeron earlier (2) Atrial fibrillation with rapid ventricular response: Code(s): I48.91 - Unspecified atrial fibrillation Status: Acute Assessment and Plan: Now in normal sinus rhythm, Cardiology consult appreciated, coreg dose increased Echo from May 2023 showed an EF of 70% with inferior wall hypokinesis (3) Pneumothorax: Qualifiers: Encounter type: initial encounter Pneumothorax type: traumatic Qualified Code(s): S27.0XXA - Traumatic pneumothorax, initial encounter Code(s): J93.9 - Pneumothorax, unspecified Status: Acute Assessment and Plan: supportive care, recheck CXR 10/16 No pneumothorax noted on repeat chest x-ray (4) Fracture, ribs: Qualifiers: Encounter type: initial encounter Fracture type: closed Laterality: left Qualified Code(s): S22.42XA - Multiple fractures of ribs, left side, initial encounter for closed fracture Code(s): S22.49XA - Multiple fractures of ribs, unspecified side, initial encounter for closed fracture Status: Acute Assessment and Plan: Pain management (5) Kathie esophagitis: Code(s): B37.81 - Candidal esophagitis Status: Acute Assessment and Plan: Consult GI (6) Atherosclerotic heart disease of [place] coronary artery without angina pectoris: Code(s): I25.10 - Atherosclerotic heart disease of [place] coronary artery without angina pectoris Status: Chronic Assessment and Plan: Cont home meds (7) COPD (chronic obstructive pulmonary disease): Code(s): J44.9 - Chronic obstructive pulmonary disease, unspecified Status: Acute Assessment and Plan: Does not appear to be in acute exacerbation Plan DVT prophylaxis with SCDs GI prophylaxis not indicated Code status full code Subjective Date/time seen: 10/17/23 09:39 Interval history: 73-year-old male with history of COPD, candidal esophagitis, heart disease, dementia, hypertension and GERD is presenting with falls and weakness and significant chest pain. No overnight events noted. No chest pain or shortness of breath. No nausea, vomiting or diarrhea. No fevers or chills. Still with painful swallowing, no appetite and depression. Somewhat somnolent today after receiving remeron last evening. Also with some coughing/choking with po intake this morning. Review of Systems Review of Systems: 12 point review of systems was assessed and was negative except as noted in the HPI Exam Narrative: General: No acute distress, alert and oriented per baseline, cachectic HEENT: Atraumatic, normocephalic, mucous membranes moist CV: Regular rate and rhythm, S1, S2 Lungs: Coarse BS throughout Abdomen: Soft, nontender, nondistended Extremities: Normal to inspection Skin: No rashes noted, no lesions or wounds seen Psych: Flattened affect, dysthymic mood, irritable Objective Data Vital Signs Vital Signs: Vital Signs - 24 hr 10/16/23 13:12 10/16/23 17:16 10/16/23 10:00 Temperature 96.6 F L 97.8 F Pulse Rate 83 76 67 Respiratory Rate 22 H Blood Pressure 115/55 L 119/54 L Pulse Oximetry 93 94 Oxygen Delivery Oxygen Flow Rate 10/16/23 12:00 10/16/23 14:00 10/16/23 16:00 Temperature Pulse Rate 84 61 65 Respiratory Rate Blood Pressure Pulse Oximetry Oxygen Delivery Oxygen Flow Rate 10/16/23 18:00 10/16/23 20:00 10/16/23 20:45 Temperature 97.7 F Pulse Rate 62 79 81 Respiratory Rate 22 H Blood Pressure 150/45 H Pulse Oximetry 100 Oxygen Delivery Oxygen Flow Rate 10/16/23
--- NOTE | 2023-10-17 09:41 | PCNFU ---
Nutrition Follow-Up Complete: Severe protein calorie malnutrition related to chronic loss of appetite, as evidenced by intakes <75% needs >1 month; NFPE findings of severe muscle wasting and fat loss Goal: Improve PO intake to 50% meals and supplements Maintain weight Patient is starting to progress towards goal. We will continue current goal. Pt current nutrition is Regular. Last recorded weight is 51.5 kg, up from 49.6 kg on admit. Bowel Motility:Last reported BM 10/11 Labs Reviewed:K 3.3,Hct 29.9,Hgb 9.0,Alb 3.0 Meds Noted:Zocor, Coreg,Vit D, Ferrous Sulfate Skin:K 3.3,Hct 29.9,Hgb 9.0 Additional Notes: Patient current with regular diet. Patient eating better today at breakfast at least 50% of meal. Patient continues with diet supplements of Ensure Enlive TID (350 kcals/20 gms protein). Flavor preference vanilla. He is not eating the nutritional ice cream. Will change to PRN. Agree with diet orders. Monitoring intakes, weights, labs, supplement tolerance, plan of care Follow up in 5 days
[2023-10-17] MEDS: carvediloL 6.25 MG TABLET PO ×2 (10:06→21:01)
[2023-10-17] MEDS: ASPIRIN 81 MG ENTERIC TABLET PO (10:07)
[2023-10-17] MEDS: SIMVASTATIN 20 MG TABLET 40 MG PO (10:07)
[2023-10-17] MEDS: ramipriL 5 MG CAPSULE PO (10:07)
[2023-10-17] MEDS: FERROUS SULFATE 325 MG TABLET DR BY MOUTH ×2 (10:07→18:48)
[2023-10-17] MEDS: LIDOCAINE 5% PATCH 1 PATCH TRANSDERM (10:08)
[2023-10-17] MEDS: CHOLECALCIFEROL 1,000 UNITS TABLET 5000 UNITS PO (10:08)
[2023-10-17] MEDS: FLUCONAZOLE 100 MG TABLET PO (10:09)
--- NOTE | 2023-10-17 10:41 | PM.PNCARD ---
Progress Note: A&P Assessment and Plan (1) Paroxysmal atrial fibrillation with RVR: Code(s): I48.0 - Paroxysmal atrial fibrillation Status: Acute Plan 73-year-old man with chronic coronary artery disease, known CT over the right coronary artery and PCI in the left coronary artery in the remote past. He is doing well and not having any ischemic symptoms at this time and has not for a long time. Entered the hospital with symptoms following falling and sustaining rib fracture. Paroxysmal AFib was resolved with intravenous diltiazem. Carvedilol dosage has been advanced. Maintaining sinus rhythm at this time. As per my partner's note yesterday systemic anticoagulation is being withheld at this time given his propensity to fall Usman Lemus MD [facility] Subjective Date/time seen: Date of service: 10/17/23 10:41 Interval history: Follow-up for patient with paroxysmal atrial fibrillation, CAD. Admitted with falls and rib fractures with a tiny pneumothorax, failure to thrive, history of hypertension, COPD and dementia. Echo: EF 70% with inferior wall hypokinesis (known chronic total occlusion of the RCA). Date of service 10/15/2023: Converted to NSR with 1 dose of IV diltiazem. Increase carvedilol to 6.25 b.i.d.. Date of service 10/16/2023: Patient has a congested cough, but no anginal chest pain. Some SOB at times. Very complimentary of the nursing staff for helping him with his rib fracture pain. Patient has had episodes of ventricular tachycardia up to 20 and 21 beats, and some brief runs of PAFlasting for less than 10 seconds. Potassium was 3.0 and he is has been given IV potassium. Hematocrit declined from 38-29. ProBNP declined to 2700. Chest x-ray showed resolution of the pneumothorax but small pleural effusions. Date of service 10/17/2023: Patient's only complaint is some chest pain with deep breathing and coughing obviously related to his rib fracture. Telemetry shows he is maintaining sinus rhythm no evidence thus far recurrent atrial fibrillation. Hemodynamically tolerating the higher dose of carvedilol Exam Const: General: cooperative and comfortable; No healthy appearing or confusion Orientation/consciousness: oriented to person, patient oriented x3 and No confusion Other: Thin older male with frequent productive cough, appears chronically ill, no distress HENMT: Mouth: Yes moist mucous membranes and Yes dry mucous membranes Eyes: General: appearance normal, both eyes and all related structures EOM: EOMs intact bilaterally Neck: Neck: supple and no JVD Thyroid: thyroid normal Carotids: no bruits Resp: Effort & Inspection: normal respiratory effort Auscultation: rales (Diffuse), rhonchi and wheezes (Diffuse) Other: Diffuse scattered wheezes rhonchi and rales Cardio: Rate: regular rate Rhythm: regular rhythm Heart sounds: no murmurs Other: Distant sounds GI: Inspection: normal to inspection Skin: General skin exam: normal color and no rashes or lesions noted Neuro: General: oriented to person, patient oriented x3 and No confusion Extrem: Right lower extremity: no edema Left lower extremity: no edema Other: Muscle wasting noted Psych: Appearance: grossly normal Mental Status: mental status grossly normal Objective Data Vital Signs Vital Signs: Vital Signs - 24 hr 10/16/23 13:12 10/16/23 17:16 10/16/23 12:00 Temperature 35.9 C L 36.6 C Pulse Rate 83 76 84 Respiratory Rate 22 H Blood Pressure 115/55 L 119/54 L Pulse Oximetry 93 94 Oxygen Delivery Oxygen Flow Rate 10/16/23 14:00 10/16/23 16:00 10/16/23 18:00 Temperature Pulse Rate 61 65 62 Respiratory Rate Blood Pressure Pulse Oximetry Oxygen Delivery Oxygen Flow Rate 10/16/23 20:00 10/16/23 20:45 10/16/23 19:45 Temperature 36.5 C Pulse Rate 79 81 Respiratory Rate 22 H Blood Pressure 150/45 H Pulse Oximetry 100 99 Oxygen Delivery
[2023-10-17] MEDS: POTASSIUM CHLORIDE INJ 40 MEQ in SODIUM CHLORIDE 0.9% IV 500 ML 130 MEQ IVPB (12:34)
--- NOTE | 2023-10-17 14:03 | PCSTNOTE ---
Please refer to the Bedside Swallow Evaluation in the EMR. Please note, silent aspiration cannot be ruled out at bedside.
--- NOTE | 2023-10-17 16:08 | PCSTNOTE ---
Please refer to the Modified Barium Swallow Evaluation in the EMR.
[2023-10-17] MEDS: MIRTAZAPINE 7.5 MG TABLET PO ×2 (18:48→21:02)
[2023-10-17] MEDS: RIVAROXABAN 2.5 MG TABLET PO (18:48)
[2023-10-18] VITALS (20 sets, daily range): BP systolic 124–160; BP diastolic 60–88; PULSE 58–95; RESP 14–20; TEMP 36.4–36.7; O2SAT 93–100
[2023-10-18 05:17] LABS: Basophils Absolute Auto 0.1 K/mm3 (0.0-0.1); Basophils Percent Auto 0.8 % (0.2-1.2); Eosinophils Absolute Auto 0.2 K/mm3 (0-0.3); Eosinophils Percent Auto 2.9 % (0-4.4); Hematocrit 29.7 % (42.0-52.0); Hemoglobin 9.1 g/dL (14.0-18.0); Immature Granulocyte Absolute 0.03 K/mm3 (0.00-0.031); Immature Granulocyte Percent A 0.4 % (0-0.5); Lymphocytes Absolute Auto 1.26 K/mm3 (0.9-3.2); Lymphocytes Percent Auto 16.6 % (18.3-44.2); Mean Corpuscular HGB Conc 30.6 g/dl (32-36); Mean Corpuscular Hemoglobin 31.6 pg (26-34); Mean Corpuscular Volume 103.1 fl (80-100); Mean Platelet Volume 9.1 fl (7.4-10.4); Monocytes Absolute Auto 0.9 K/mm3 (0.1-0.6); Monocytes Percent Auto 12.3 % (2.6-8.5); Neutrophils Absolute Auto 5.1 K/mm3 (1.3-6.7); Platelet Count Result 432 k/mm3 (150-375); Red Blood Count 2.88 M/mm3 (4.6-6.20); Red Cell Distribution Width 14.4 % (11.5-14.5); White Blood Count 7.6 K/mm3 (4.5-10.0)
[2023-10-18 05:25] LABS: Alanine Aminotransferase 10 U/L (6-50); Albumin Level 2.9 g/dL (3.5-5.1); Alkaline Phosphatase 70 U/L (38-126); Anion Gap 7 mmol/L (8-16); Aspartate Amino Transferase 18 U/L (17-59); Bilirubin,Total 0.4 mg/dL (0.2-1.3); Blood Urea Nitrogen 9 mg/dL (9-20); Calcium 9.1 mg/dL (8.4-10.2); Carbon Dioxide 26 mmol/L (22-30); Chloride 110 mmol/L (98-107); Estimated CRCL calculation 60 ml/min; Estimated Glomerular Filt Rate > 60; Glucose 86 mg/dL (65-110); Potassium 3.6 mmol/L (3.4-5.0); Sodium 143 mmol/L (137-145)
[2023-10-18] MEDS: FLUTICASONE/UMECLIDIN/VILANTER 100-62.5-25 MCG ELLIPTA 1 PUFF INHALATION (08:22)
[2023-10-18] MEDS: LIDOCAINE 5% PATCH 1 PATCH TRANSDERM (09:20)
[2023-10-18] MEDS: carvediloL 6.25 MG TABLET PO (09:21)
[2023-10-18] MEDS: FERROUS SULFATE 325 MG TABLET DR BY MOUTH ×2 (09:22→18:00)
[2023-10-18] MEDS: ASPIRIN 81 MG ENTERIC TABLET PO (09:30)
[2023-10-18] MEDS: SIMVASTATIN 20 MG TABLET 40 MG PO (09:30)
[2023-10-18] MEDS: FLUCONAZOLE 100 MG TABLET PO (09:30)
[2023-10-18] MEDS: ramipriL 5 MG CAPSULE PO (09:30)
[2023-10-18] MEDS: CHOLECALCIFEROL 1,000 UNITS TABLET 5000 UNITS PO (09:30)
--- NOTE | 2023-10-18 10:10 | PCPTNOTE ---
attempted PT eval, patient getting bed bath. Will follow
--- NOTE | 2023-10-18 12:11 | PM.IMPN ---
Progress Note: A&P Assessment and Plan (1) Adult failure to thrive: Code(s): R62.7 - Adult failure to thrive Status: Acute Assessment and Plan: Unsure of etiology, TSH wnl, B12 wnl Multifactorial, likely secondary to depression with dementia Initiate remeron and monitor response Improved appetite, swallowing improving Appreciate GI consult (2) Atrial fibrillation with rapid ventricular response: Code(s): I48.91 - Unspecified atrial fibrillation Status: Acute Assessment and Plan: Now in normal sinus rhythm, Cardiology consult appreciated, coreg dose increased Echo from May 2023 showed an EF of 70% with inferior wall hypokinesis (3) Pneumothorax: Qualifiers: Encounter type: initial encounter Pneumothorax type: traumatic Qualified Code(s): S27.0XXA - Traumatic pneumothorax, initial encounter Code(s): J93.9 - Pneumothorax, unspecified Status: Acute Assessment and Plan: supportive care, recheck CXR 10/16 No pneumothorax noted on repeat chest x-ray (4) Fracture, ribs: Qualifiers: Encounter type: initial encounter Fracture type: closed Laterality: left Qualified Code(s): S22.42XA - Multiple fractures of ribs, left side, initial encounter for closed fracture Code(s): S22.49XA - Multiple fractures of ribs, unspecified side, initial encounter for closed fracture Status: Acute Assessment and Plan: Pain management (5) Kathie esophagitis: Code(s): B37.81 - Candidal esophagitis Status: Acute Assessment and Plan: Consult GI, fluconazole initiated (6) Atherosclerotic heart disease of [place] coronary artery without angina pectoris: Code(s): I25.10 - Atherosclerotic heart disease of [place] coronary artery without angina pectoris Status: Chronic Assessment and Plan: Cont home meds (7) COPD (chronic obstructive pulmonary disease): Code(s): J44.9 - Chronic obstructive pulmonary disease, unspecified Status: Acute Assessment and Plan: Does not appear to be in acute exacerbation Plan DVT prophylaxis with SCDs GI prophylaxis not indicated Code status full code Subjective Date/time seen: 10/18/23 12:11 Interval history: 73-year-old male with history of COPD, candidal esophagitis, heart disease, dementia, hypertension and GERD is presenting with falls and weakness and significant chest pain. No overnight events noted. No chest pain or shortness of breath. No nausea, vomiting or diarrhea. No fevers or chills. Still with somewhat painful swallowing, improved appetite and depression. Much better today. Review of Systems Review of Systems: 12 point review of systems was assessed and was negative except as noted in the HPI Exam Narrative: General: No acute distress, alert and oriented per baseline, cachectic HEENT: Atraumatic, normocephalic, mucous membranes moist CV: Regular rate and rhythm, S1, S2 Lungs: Coarse BS throughout Abdomen: Soft, nontender, nondistended Extremities: Normal to inspection Skin: No rashes noted, no lesions or wounds seen Psych: Flattened affect, dysthymic mood, irritable Objective Data Vital Signs Vital Signs: Vital Signs - 24 hr 10/17/23 16:00 10/17/23 14:00 10/17/23 16:00 Temperature 97.8 F Pulse Rate 74 67 65 Respiratory Rate 17 Blood Pressure 158/59 H Pulse Oximetry 100 Oxygen Delivery 10/17/23 18:00 10/17/23 16:00 10/17/23 20:00 Temperature 98.2 F Pulse Rate 68 68 Respiratory Rate 16 Blood Pressure 161/66 H Pulse Oximetry 96 Oxygen Delivery Room Air 10/17/23 21:01 10/17/23 23:54 10/17/23 20:00 Temperature 97.9 F Pulse Rate 68 63 Respiratory Rate 20 Blood Pressure 146/63 H Pulse Oximetry 97 Oxygen Delivery Room Air 10/18/23 00:00 10/17/23 20:00 10/17/23 22:00 Temperature Pulse Rate 66 68 Respiratory Rate Blood P
--- NOTE | 2023-10-18 13:43 | PM.PNCARD ---
Progress Note: A&P Assessment and Plan (1) Paroxysmal atrial fibrillation with RVR: Code(s): I48.0 - Paroxysmal atrial fibrillation Status: Acute Assessment and Plan: Patient has no prior history of atrial fibrillation (I believe he is taking low dose Xarelto because of CAD plus peripheral vascular disease) but developed AFib RVR 10/14/2023. Converted to sinus rhythm after a dose of IV diltiazem. Echo in May showed an EF of 70% with inferior wall hypokinesis (history of RCA occlusion). Has very brief episodes of PAF but no prolonged sustained episodes now. --TSH was normal --increased carvedilol to 6.25 mg BID; will try titrating to 12.5 mg b.i.d. but follow blood pressure closely. --in view of the patient has weakness with falls I am concerned about increasing his Xarelto to a therapeutic dose of 20 mg daily. Will hold off on that for now and see if he improves his strength and balance. Reconsider anticoagulation at a later date. --DC telemetry or transfer off IMU? (2) Coronary artery disease: Code(s): I25.10 - Atherosclerotic heart disease of [place] coronary artery without angina pectoris Status: Acute Assessment and Plan: History of CAD with chronic total occlusion the right coronary artery. He had signs of ischemia on his EKG and a small bump in troponins when he was extremely tachycardic. Otherwise however no angina so I do not think we need to evaluate further. --Continue aspirin and simvastatin therapy. (3) Nonsustained ventricular tachycardia: Code(s): I47.29 - Other ventricular tachycardia Status: Acute Assessment and Plan: Nonsustained V-tach noted, asymptomatic. Normal LV function suggests the risk of sudden cardiac is low. Does not appear to have any acute coronary syndrome. Seems to have resolved with correction of hypokalemia and increasing the beta-renee dose. (4) Hypokalemia: Code(s): E87.6 - Hypokalemia Status: Acute Assessment and Plan: Persistent hypokalemia, probably dietary related. --Remains at low end of normal. Will add potassium 10 mEq daily. (5) Fracture, ribs: Qualifiers: Encounter type: initial encounter Fracture type: closed Laterality: left Qualified Code(s): S22.42XA - Multiple fractures of ribs, left side, initial encounter for closed fracture Code(s): S22.49XA - Multiple fractures of ribs, unspecified side, initial encounter for closed fracture Status: Acute Assessment and Plan: Weakness and falls with recent rib fractures, tiny pneumothorax has resolved. --Cont physical therapy, also better nutrition etc.. (6) Adult failure to thrive: Code(s): R62.7 - Adult failure to thrive Status: Acute Assessment and Plan: Patient has had significant weight loss, depression, some dementia with failure to thrive. --consider an antidepressant --no evidence of cancer --I's and O's suggests adequate p.o. intake care. (7) Cigarette smoker: Code(s): F17.210 - Nicotine dependence, cigarettes, uncomplicated Status: Chronic Assessment and Plan: Continues to smoke. Plan Will follow at a distance. Please contact us if further help needed. Subjective Date/time seen: 10/18/23 13:43 Interval history: Follow-up for patient with paroxysmal atrial fibrillation, CAD. Admitted with falls and rib fractures with a tiny pneumothorax, failure to thrive, history of hypertension, COPD and dementia. Echo: EF 70% with inferior wall hypokinesis (known chronic total occlusion of the RCA). 10/15/2023: Converted to NSR with 1 dose of IV diltiazem. Increase carvedilol to 6.25 b.i.d.. 10/16/2023: Patient has a congested cough, but no anginal chest pain. Some SOB at times. Very complimentary of the nursing staff for helping him with his rib fracture pain. Patient has had episodes of ventricular tachycardia up to 20 and 21 beats, and some brief
[2023-10-18] MEDS: RIVAROXABAN 2.5 MG TABLET PO (18:00)
[2023-10-18] MEDS: carvediloL 12.5 MG TABLET PO (21:48)
[2023-10-18] MEDS: MIRTAZAPINE 7.5 MG TABLET PO (21:48)
[2023-10-19] VITALS (16 sets, daily range): BP systolic 130–156; BP diastolic 63–108; PULSE 63–93; RESP 16–20; TEMP 36.3–36.6; O2SAT 91–99
--- NOTE | 2023-10-19 03:20 | PC.NURSE ---
Pt has been confused to place and situation overnight and has become somewhat agitated. Pt is asking repeatedly for cigarettes and his pants. He states he wants to leave and called his and left a message. Pt offered nicotine patch, but states they make him ill.
[2023-10-19 05:48] LABS: Basophils Absolute Auto 0.1 K/mm3 (0.0-0.1); Basophils Percent Auto 0.8 % (0.2-1.2); Eosinophils Absolute Auto 0.1 K/mm3 (0-0.3); Eosinophils Percent Auto 1.9 % (0-4.4); Hematocrit 28.9 % (42.0-52.0); Hemoglobin 8.8 g/dL (14.0-18.0); Immature Granulocyte Absolute 0.04 K/mm3 (0.00-0.031); Immature Granulocyte Percent A 0.5 % (0-0.5); Mean Corpuscular HGB Conc 30.4 g/dl (32-36); Mean Corpuscular Hemoglobin 31.5 pg (26-34); Mean Corpuscular Volume 103.6 fl (80-100); Mean Platelet Volume 9.2 fl (7.4-10.4); Monocytes Absolute Auto 1.1 K/mm3 (0.1-0.6); Monocytes Percent Auto 14.4 % (2.6-8.5); Neutrophils Absolute Auto 4.7 K/mm3 (1.3-6.7); Neutrophils Percent Auto 62.4 % (45.5-73.1); Platelet Count Result 456 k/mm3 (150-375); Red Blood Count 2.79 M/mm3 (4.6-6.20); Red Cell Distribution Width 14.1 % (11.5-14.5); White Blood Count 7.5 K/mm3 (4.5-10.0)
[2023-10-19 06:13] LABS: Alanine Aminotransferase 11 U/L (6-50); Albumin Level 2.8 g/dL (3.5-5.1); Alkaline Phosphatase 71 U/L (38-126); Anion Gap 5 mmol/L (8-16); Aspartate Amino Transferase 22 U/L (17-59); Bilirubin,Total 0.4 mg/dL (0.2-1.3); Blood Urea Nitrogen 14 mg/dL (9-20); Carbon Dioxide 27 mmol/L (22-30); Chloride 106 mmol/L (98-107); Estimated CRCL calculation 53 ml/min; Estimated Glomerular Filt Rate > 60; Glucose 85 mg/dL (65-110); Potassium 3.6 mmol/L (3.4-5.0); Sodium 138 mmol/L (137-145)
--- NOTE | 2023-10-19 09:38 | PM.IMPN ---
Progress Note: A&P Assessment and Plan (1) Adult failure to thrive: Code(s): R62.7 - Adult failure to thrive Status: Acute Assessment and Plan: Unsure of etiology, TSH wnl, B12 wnl Multifactorial, likely secondary to depression with dementia Improved appetite on remeron, swallowing improving Appreciate GI consult due to confusion this morning, hold remeron and xanax given overnight--would not give benzo again (2) Atrial fibrillation with rapid ventricular response: Code(s): I48.91 - Unspecified atrial fibrillation Status: Acute Assessment and Plan: Now in normal sinus rhythm, Cardiology consult appreciated, coreg dose increased Echo from May 2023 showed an EF of 70% with inferior wall hypokinesis (3) Pneumothorax: Qualifiers: Encounter type: initial encounter Pneumothorax type: traumatic Qualified Code(s): S27.0XXA - Traumatic pneumothorax, initial encounter Code(s): J93.9 - Pneumothorax, unspecified Status: Acute Assessment and Plan: supportive care, recheck CXR 10/16 No pneumothorax noted on repeat chest x-ray (4) Fracture, ribs: Qualifiers: Encounter type: initial encounter Fracture type: closed Laterality: left Qualified Code(s): S22.42XA - Multiple fractures of ribs, left side, initial encounter for closed fracture Code(s): S22.49XA - Multiple fractures of ribs, unspecified side, initial encounter for closed fracture Status: Acute Assessment and Plan: Pain management (5) Kathie esophagitis: Code(s): B37.81 - Candidal esophagitis Status: Acute Assessment and Plan: Consult GI, fluconazole initiated (6) Atherosclerotic heart disease of [place] coronary artery without angina pectoris: Code(s): I25.10 - Atherosclerotic heart disease of [place] coronary artery without angina pectoris Status: Chronic Assessment and Plan: Cont home meds (7) COPD (chronic obstructive pulmonary disease): Code(s): J44.9 - Chronic obstructive pulmonary disease, unspecified Status: Acute Assessment and Plan: Does not appear to be in acute exacerbation Plan DVT prophylaxis with SCDs GI prophylaxis not indicated Code status full code Subjective Date/time seen: 10/19/23 09:38 Interval history: 73-year-old male with history of COPD, candidal esophagitis, heart disease, dementia, hypertension and GERD is presenting with falls and weakness and significant chest pain. Overnight patient became confused and somewhat agitated. No chest pain or shortness of breath. No nausea, vomiting or diarrhea. No fevers or chills. Improving Review of Systems Review of Systems: 12 point review of systems was assessed and was negative except as noted in the HPI Exam Narrative: General: No acute distress, alert and oriented per baseline, cachectic HEENT: Atraumatic, normocephalic, mucous membranes moist CV: Regular rate and rhythm, S1, S2 Lungs: Coarse BS throughout Abdomen: Soft, nontender, nondistended Extremities: Normal to inspection Skin: No rashes noted, no lesions or wounds seen Psych: Flattened affect, dysthymic mood, irritable Objective Data Vital Signs Vital Signs: Vital Signs - 24 hr 10/18/23 11:36 10/18/23 11:11 10/18/23 12:00 Temperature 97.8 F Pulse Rate 81 Respiratory Rate 14 Blood Pressure 125/70 Pulse Oximetry 98 Oxygen Delivery Room Air Room Air Oxygen Flow Rate 10/18/23 13:05 10/18/23 10:00 10/18/23 12:00 Temperature Pulse Rate 72 95 Respiratory Rate Blood Pressure Pulse Oximetry Oxygen Delivery Room Air Oxygen Flow Rate 10/18/23 14:00 10/18/23 15:38 10/18/23 16:00 Temperature 98.0 F Pulse Rate 76 67 63 Respiratory Rate 20 Blood Pressure 149/63 H Pulse Oximetry 100 Oxygen Delivery Oxygen Flow Rate 10/18/23 18:00 10/18/23 16:00 10/18/23 20
[2023-10-19] MEDS: LIDOCAINE 5% PATCH 1 PATCH TRANSDERM (09:44)
[2023-10-19] MEDS: FERROUS SULFATE 325 MG TABLET DR BY MOUTH (18:22)
[2023-10-19] MEDS: RIVAROXABAN 2.5 MG TABLET PO (18:22)
[2023-10-20] VITALS (13 sets, daily range): BP systolic 116–158; BP diastolic 50–61; PULSE 61–105; RESP 14–20; TEMP 36.4–36.6; O2SAT 94–99
[2023-10-20 05:16] LABS: Basophils Absolute Auto 0.1 K/mm3 (0.0-0.1); Basophils Percent Auto 0.7 % (0.2-1.2); Eosinophils Absolute Auto 0.2 K/mm3 (0-0.3); Eosinophils Percent Auto 1.8 % (0-4.4); Hematocrit 28.6 % (42.0-52.0); Hemoglobin 8.9 g/dL (14.0-18.0); Immature Granulocyte Absolute 0.06 K/mm3 (0.00-0.031); Immature Granulocyte Percent A 0.7 % (0-0.5); Lymphocytes Absolute Auto 1.37 K/mm3 (0.9-3.2); Lymphocytes Percent Auto 16.5 % (18.3-44.2); Mean Corpuscular HGB Conc 31.1 g/dl (32-36); Mean Corpuscular Hemoglobin 31.9 pg (26-34); Mean Corpuscular Volume 102.5 fl (80-100); Mean Platelet Volume 9.2 fl (7.4-10.4); Monocytes Absolute Auto 1.1 K/mm3 (0.1-0.6); Monocytes Percent Auto 13.4 % (2.6-8.5); Neutrophils Absolute Auto 5.5 K/mm3 (1.3-6.7); Neutrophils Percent Auto 66.9 % (45.5-73.1); Platelet Count Result 472 k/mm3 (150-375); Red Blood Count 2.79 M/mm3 (4.6-6.20); Red Cell Distribution Width 14.2 % (11.5-14.5); White Blood Count 8.3 K/mm3 (4.5-10.0)
[2023-10-20 05:31] LABS: Alanine Aminotransferase 11 U/L (6-50); Albumin Level 2.8 g/dL (3.5-5.1); Alkaline Phosphatase 69 U/L (38-126); Anion Gap 4 mmol/L (8-16); Aspartate Amino Transferase 23 U/L (17-59); Bilirubin,Total 0.3 mg/dL (0.2-1.3); Blood Urea Nitrogen 15 mg/dL (9-20); Calcium 9.3 mg/dL (8.4-10.2); Carbon Dioxide 26 mmol/L (22-30); Chloride 108 mmol/L (98-107); Estimated CRCL calculation 56 ml/min; Estimated Glomerular Filt Rate > 60; Glucose 93 mg/dL (65-110); Potassium 3.6 mmol/L (3.4-5.0); Sodium 138 mmol/L (137-145)
--- NOTE | 2023-10-20 08:31 | PCPTNOTE ---
Attempted to see patient for PT, however patient was eating breakfast.
[2023-10-20] MEDS: LIDOCAINE 5% PATCH 1 PATCH TRANSDERM (09:13)
[2023-10-20] MEDS: POTASSIUM CHLORIDE 20 MEQ PACKET (FOR LIQUID) 10 MEQ PO (09:13)
[2023-10-20] MEDS: ramipriL 5 MG CAPSULE PO (09:14)
[2023-10-20] MEDS: carvediloL 12.5 MG TABLET PO ×2 (09:14→20:45)
[2023-10-20] MEDS: FLUCONAZOLE 100 MG TABLET PO (09:14)
[2023-10-20] MEDS: ASPIRIN 81 MG ENTERIC TABLET PO (09:14)
[2023-10-20] MEDS: SIMVASTATIN 20 MG TABLET 40 MG PO (09:14)
[2023-10-20] MEDS: FERROUS SULFATE 325 MG TABLET DR BY MOUTH ×2 (09:14→17:27)
[2023-10-20] MEDS: CHOLECALCIFEROL 1,000 UNITS TABLET 5000 UNITS PO (09:14)
[2023-10-20] MEDS: ACETAMINOPHEN 325 MG TABLET 650 MG PO (09:15)
--- NOTE | 2023-10-20 09:28 | PM.IMPN ---
Progress Note: A&P Assessment and Plan (1) Adult failure to thrive: Code(s): R62.7 - Adult failure to thrive Status: Acute Assessment and Plan: Unsure of etiology, TSH wnl, B12 wnl Multifactorial, likely secondary to depression with dementia Improved appetite on remeron, swallowing improving Appreciate GI consult Had confusion at one point, hold remeron and xanax given overnight--would not give benzo again Improving, suspect underlying depression, did not respond well to remeron, trial prozac (2) Atrial fibrillation with rapid ventricular response: Code(s): I48.91 - Unspecified atrial fibrillation Status: Acute Assessment and Plan: Now in normal sinus rhythm, Cardiology consult appreciated, coreg dose increased Echo from May 2023 showed an EF of 70% with inferior wall hypokinesis (3) Pneumothorax: Qualifiers: Encounter type: initial encounter Pneumothorax type: traumatic Qualified Code(s): S27.0XXA - Traumatic pneumothorax, initial encounter Code(s): J93.9 - Pneumothorax, unspecified Status: Acute Assessment and Plan: supportive care, recheck CXR 10/16 No pneumothorax noted on repeat chest x-ray (4) Fracture, ribs: Qualifiers: Encounter type: initial encounter Fracture type: closed Laterality: left Qualified Code(s): S22.42XA - Multiple fractures of ribs, left side, initial encounter for closed fracture Code(s): S22.49XA - Multiple fractures of ribs, unspecified side, initial encounter for closed fracture Status: Acute Assessment and Plan: Pain management (5) Kathie esophagitis: Code(s): B37.81 - Candidal esophagitis Status: Acute Assessment and Plan: Consult GI, fluconazole initiated (6) Atherosclerotic heart disease of [place] coronary artery without angina pectoris: Code(s): I25.10 - Atherosclerotic heart disease of [place] coronary artery without angina pectoris Status: Chronic Assessment and Plan: Cont home meds (7) COPD (chronic obstructive pulmonary disease): Code(s): J44.9 - Chronic obstructive pulmonary disease, unspecified Status: Acute Assessment and Plan: Does not appear to be in acute exacerbation Plan DVT prophylaxis with SCDs GI prophylaxis not indicated Code status DNR Subjective Date/time seen: 10/20/23 09:28 Interval history: 73-year-old male with history of COPD, candidal esophagitis, heart disease, dementia, hypertension and GERD is presenting with falls and weakness and significant chest pain. Overnight patient became confused and somewhat agitated. No chest pain or shortness of breath. No nausea, vomiting or diarrhea. No fevers or chills. Improving Review of Systems Review of Systems: 12 point review of systems was assessed and was negative except as noted in the HPI Exam Narrative: General: No acute distress, alert and oriented per baseline, cachectic HEENT: Atraumatic, normocephalic, mucous membranes moist CV: Regular rate and rhythm, S1, S2 Lungs: Coarse BS throughout Abdomen: Soft, nontender, nondistended Extremities: Normal to inspection Skin: No rashes noted, no lesions or wounds seen Psych: Flattened affect, dysthymic mood, irritable Objective Data Vital Signs Vital Signs: Vital Signs - 24 hr 10/19/23 12:00 10/19/23 10:00 10/19/23 12:00 Temperature 97.5 F L Pulse Rate 88 74 78 Respiratory Rate 20 Blood Pressure 136/66 Pulse Oximetry 99 Oxygen Delivery 10/19/23 14:00 10/19/23 16:00 10/19/23 16:00 Temperature 97.8 F Pulse Rate 74 85 93 Respiratory Rate 20 Blood Pressure 142/75 H Pulse Oximetry 91 Oxygen Delivery 10/19/23 12:00 10/19/23 16:00 10/19/23 18:00 Temperature Pulse Rate 78 Respiratory Rate Blood Pressure Pulse Oximetry Oxygen Delivery Room Air Room Air 10/19/23 19:48 10/19/23 20:00
[2023-10-20] MEDS: FLUTICASONE/UMECLIDIN/VILANTER 100-62.5-25 MCG ELLIPTA 1 PUFF INHALATION (09:42)
--- NOTE | 2023-10-20 09:42 | PM.DS ---
DS: Admitting Diagnosis Discharge Date 10/20/23 Admitting Diagnosis Weakness and chest pain DS: Discharge Diagnosis Discharge Diagnosis (1) Adult failure to thrive: Code(s): R62.7 - Adult failure to thrive Status: Acute Assessment and Plan: Unsure of etiology, TSH wnl, B12 wnl Multifactorial, likely secondary to depression with dementia Improved appetite on remeron, swallowing improving Appreciate GI consult due to confusion this morning, hold remeron and xanax given overnight--would not give benzo again (2) Atrial fibrillation with rapid ventricular response: Code(s): I48.91 - Unspecified atrial fibrillation Status: Acute Assessment and Plan: Now in normal sinus rhythm, Cardiology consult appreciated, coreg dose increased Echo from May 2023 showed an EF of 70% with inferior wall hypokinesis (3) Pneumothorax: Qualifiers: Encounter type: initial encounter Pneumothorax type: traumatic Qualified Code(s): S27.0XXA - Traumatic pneumothorax, initial encounter Code(s): J93.9 - Pneumothorax, unspecified Status: Acute Assessment and Plan: supportive care, recheck CXR 10/16 No pneumothorax noted on repeat chest x-ray (4) Fracture, ribs: Qualifiers: Encounter type: initial encounter Fracture type: closed Laterality: left Qualified Code(s): S22.42XA - Multiple fractures of ribs, left side, initial encounter for closed fracture Code(s): S22.49XA - Multiple fractures of ribs, unspecified side, initial encounter for closed fracture Status: Acute Assessment and Plan: Pain management (5) Kathie esophagitis: Code(s): B37.81 - Candidal esophagitis Status: Acute Assessment and Plan: Consult GI, fluconazole initiated (6) Atherosclerotic heart disease of [place] coronary artery without angina pectoris: Code(s): I25.10 - Atherosclerotic heart disease of [place] coronary artery without angina pectoris Status: Chronic Assessment and Plan: Cont home meds (7) COPD (chronic obstructive pulmonary disease): Code(s): J44.9 - Chronic obstructive pulmonary disease, unspecified Status: Acute Assessment and Plan: Does not appear to be in acute exacerbation Plan DVT prophylaxis with SCDs GI prophylaxis not indicated Code status full code DS: Summary Hospital Course Hospital Course: 73-year-old male with history of COPD, candidal esophagitis, heart disease, dementia, hypertension and GERD is presenting with falls and weakness and significant chest pain. GI was consulted and did empirical treatment for candidal esophagitis due to history of this diagnosis on EGD from a couple months ago. Will treat for 14 days due to refractory disease. Cardiology was consulted for AFib with RVR. They increase carvedilol to 6.25 mg twice daily. Xarelto was also increased to 20 mg daily. They recommended continuing the aspirin and statin as well. Also did improved but patient was still quite weak with failure to thrive. He was placed on Remeron which seemed to help with his appetite but did give him some side effects of altered mentation and sedation. This occurred even at the lowest doses and was discontinued. Patient was discharged in stable condition with close outpatient follow-up to a long term facility for further physical therapy. Please see above and med rec for details. Time Spent with Patient Time attestation: Total time spent providing and/or coordinating discharge services: Exam Narrative: General: No acute distress, alert and oriented per baseline, cachectic HEENT: Atraumatic, normocephalic, mucous membranes moist CV: Regular rate and rhythm, S1, S2 Lungs: Coarse BS throughout Abdomen: Soft, nontender, nondistended Extremities: Normal to inspection Skin: No rashes noted, no lesions or wounds seen Psych: Flattened affect, dysthymic moo
[2023-10-20] MEDS: FLUoxetine HCL 10 MG CAPSULE PO (12:36)
--- NOTE | 2023-10-20 14:34 | PDONCCN ---
HPI - Date of Consult Date/Time: 10/20/23 18:23 <Spike Mcclain - 10/20/23 18:28> 10/20/23 14:34 <Tatianna Oneill - 10/20/23 14:48> Requesting Physician: Doreen Campos DO <Spike Mcclain - 10/20/23 18:28> Doreen Campos DO <Tatianna Oneill - 10/20/23 14:48> Primary Care Provider: Victoriano Durand DO <Spike Mcclain - 10/20/23 18:28> Victoriano Durand DO <Tatianna Oneill - 10/20/23 14:48> - Consult Narrative Reason for consult: Anemia <Tatianna Oneill - 10/20/23 14:48> Narrative: Case reviewed and discussed. Iron studies from May 2023 showed significant iron deficiency and normal vitamin B12 level. His hemoglobin is slowly declining after initial improvement in October 15, 2023. I will repeat iron studies and vitamin B12 level. Patient may need iron infusion prior to the discharge based on the repeat labs. In the meantime he will continue oral iron supplement. Spike Mcclain MD <Spike Mcclain - 10/20/23 18:28> Nikita Meyers is a 73 year old male with a past medical history of COPD, dementia, HTN, GERD, admitted for failure to thrive, falls, and weakness. Per patient, in May 2023, he was found to have profound anemia with a Hgb of 4, received blood transfusions and then was discharged. His last colonoscopy this year was negative, but has a history of candidal esophagitis. He denies blood in stool or urine. Denies stomach surgeries. Denies blood donations. He is having trouble swallowing and is requiring thickened liquids. Labs noted Hgb 8.9, Hct 28.6, MCV 102.5, Plt 427,000, Cr 0.70. No iron studies available, but patient is taking oral iron. He is being discharged today or tomorrow to a local rehab. <Tatianna Oneill - 10/20/23 14:48> Review of Systems - Review of Systems All systems reviewed & are unremarkable except as noted in HPI and bel <Tatianna Oneill - 10/20/23 14:48> - Neurologic Reports system reviewed and no additional complaints, except as documented, Reports hearing normal, Reports behavioral changes, Reports weakness, Denies confusion <Tatianna Oneill - 10/20/23 14:48> [facility] Medical History: Medical History (Last Updated 10/16/23 @ 15:10 by Tomás Jovel MD) Kathie esophagitis COPD mixed type Coronary artery disease History multivessel stenting, chronic occlusion of the right coronary artery Dementia Duodenal ulcer Essential (primary) hypertension Gastro-esophageal reflux disease without esophagitis History of candidiasis Nonsustained ventricular tachycardia Odynophagia Paroxysmal atrial fibrillation with RVR Protein calorie malnutrition Tobacco dependence <Spike Mcclain - 10/20/23 18:28> Medical History (Last Updated 10/16/23 @ 15:10 by Tomás Jovel MD) Kathie esophagitis COPD mixed type Coronary artery disease History multivessel stenting, chronic occlusion of the right coronary artery Dementia Duodenal ulcer Essential (primary) hypertension Gastro-esophageal reflux disease without esophagitis History of candidiasis Nonsustained ventricular tachycardia Odynophagia Paroxysmal atrial fibrillation with RVR Protein calorie malnutrition Tobacco dependence <Antoine Oneillne - 10/20/23 14:48> Surgical History: Surgical History (Last Reviewed 10/15/23 @ 16:55 by Francesca Sahu MD) H/O wrist surgery History of ankle surgery History of hernia repair History of PTCA 4 heart stents Hx of tonsillectomy <Spike Mcclain - 10/20/23 18:28> Surgical History (Last Reviewed 10/15/23 @ 16:55 by Francesca Sahu MD) H/O wrist surgery History of ankle surgery History of hernia repair History of PTCA 4 heart stents Hx of tonsillectomy <ShravanlarisaTatianna - 10/20/23 14:48> Family History: Family History (Last Reviewed 10/15/23 @ 16:55 by Francesca Sahu MD) Mother Patient's mother is Cerebrovasc
--- NOTE | 2023-10-20 15:47 | PC.NURSE ---
This patient, Nikita Meyers, was transferred to [[facility] ] on 10/20/23 at 1547. Personal belongings sent with patient. Report given to [ Debra]. Appropriate documentation sent with patient.
[2023-10-20] MEDS: RIVAROXABAN 2.5 MG TABLET PO (17:27)
[2023-10-20 18:55] LABS: Iron 32 ug/dL (49-181)
[2023-10-20 19:05] LABS: Percent Iron Saturation 12 % (20-50)
[2023-10-20 19:23] LABS: Lactate Dehydrogenase 161 U/L (120-246)
[2023-10-20 20:20] LABS: Folic Acid 9.3 ng/mL (2.76->20)
[2023-10-21 03:56] VITALS: BP 155/58; PULSE 65; RESP 16; TEMP 36.1; O2SAT 98
[2023-10-21 06:35] LABS: Basophils Absolute Auto 0.1 K/mm3 (0.0-0.1); Basophils Percent Auto 0.8 % (0.2-1.2); Eosinophils Absolute Auto 0.2 K/mm3 (0-0.3); Eosinophils Percent Auto 1.9 % (0-4.4); Hematocrit 30.4 % (42.0-52.0); Hemoglobin 9.1 g/dL (14.0-18.0); Immature Granulocyte Absolute 0.07 K/mm3 (0.00-0.031); Immature Granulocyte Percent A 0.7 % (0-0.5); Lymphocytes Absolute Auto 1.46 K/mm3 (0.9-3.2); Lymphocytes Percent Auto 14.9 % (18.3-44.2); Mean Corpuscular HGB Conc 29.9 g/dl (32-36); Mean Corpuscular Hemoglobin 31.3 pg (26-34); Mean Corpuscular Volume 104.5 fl (80-100); Mean Platelet Volume 8.9 fl (7.4-10.4); Monocytes Absolute Auto 1.3 K/mm3 (0.1-0.6); Monocytes Percent Auto 12.9 % (2.6-8.5); Neutrophils Absolute Auto 6.7 K/mm3 (1.3-6.7); Neutrophils Percent Auto 68.8 % (45.5-73.1); Platelet Count Result 531 k/mm3 (150-375); Red Blood Count 2.91 M/mm3 (4.6-6.20); Red Cell Distribution Width 14.5 % (11.5-14.5); White Blood Count 9.8 K/mm3 (4.5-10.0)
[2023-10-21 06:52] LABS: Alanine Aminotransferase 11 U/L (6-50); Alkaline Phosphatase 80 U/L (38-126); Anion Gap 6 mmol/L (8-16); Aspartate Amino Transferase 23 U/L (17-59); Bilirubin,Total 0.3 mg/dL (0.2-1.3); Blood Urea Nitrogen 14 mg/dL (9-20); Calcium 9.5 mg/dL (8.4-10.2); Carbon Dioxide 26 mmol/L (22-30); Chloride 111 mmol/L (98-107); Estimated CRCL calculation 57 ml/min; Estimated Glomerular Filt Rate > 60; Glucose 89 mg/dL (65-110); Sodium 143 mmol/L (137-145)
[2023-10-21 06:59] LABS: Platelet Estimate Increased (Adequate)
[2023-10-21 07:00] LABS: Hypochromasia 1+ (NORMAL); Macrocytosis 1+ (NORMAL); Schistocytes None Seen (NORMAL)
[2023-10-21 09:45] LABS: Appearance Urine Cloudy (Clear); Bacteria Urine None Seen /hpf; Bilirubin Urine Negative (Negative); Blood Urine 3+ (Negative); Color Urine Yellow (Yellow); Glucose Urine UA Negative (Negative); Ketones Urine Negative (Negative); Leukocyte Esterase Ur Trace LEU/UL (Negative); Nitrate Urine Negative (Negative); Non Pathogenic Casts 0-2; Protein Urine Negative (Negative); RBC Urine >100 /hpf (0-2); Specific Grav Ur 1.011 (1.001-1.035); Squamous Epithelial Cell Urine None seen /hpf (Few); Urobilinogen Urine 0.2 mg/dL (<2.0); WBC Urine 0-5 /hpf
[2023-10-21 09:57] LABS: Add Urine Microscopic? YES
[2023-10-21] MEDS: POTASSIUM CHLORIDE 20 MEQ PACKET (FOR LIQUID) 10 MEQ PO (10:21)
[2023-10-21] MEDS: FLUoxetine HCL 10 MG CAPSULE PO (10:21)
[2023-10-21] MEDS: ramipriL 5 MG CAPSULE PO (10:21)
[2023-10-21] MEDS: CHOLECALCIFEROL 1,000 UNITS TABLET 5000 UNITS PO (10:21)
[2023-10-21] MEDS: FERROUS SULFATE 325 MG TABLET DR BY MOUTH ×2 (10:22→17:20)
[2023-10-21] MEDS: FLUCONAZOLE 100 MG TABLET PO (10:22)
[2023-10-21] MEDS: SIMVASTATIN 20 MG TABLET 40 MG PO (10:22)
[2023-10-21] MEDS: ASPIRIN 81 MG ENTERIC TABLET PO (10:22)
[2023-10-21 10:23] VITALS: PULSE 87
[2023-10-21] MEDS: carvediloL 12.5 MG TABLET PO ×2 (10:23→20:53)
[2023-10-21] MEDS: LIDOCAINE 5% PATCH 1 PATCH TRANSDERM (10:27)
--- NOTE | 2023-10-21 11:23 | PM.IMPN ---
Progress Note: A&P Assessment and Plan (1) Adult failure to thrive: Code(s): R62.7 - Adult failure to thrive Status: Acute Assessment and Plan: Unsure of etiology, TSH wnl, B12 wnl Multifactorial, likely secondary to depression with dementia Improved appetite on remeron, swallowing improving Appreciate GI consult Had confusion at one point, hold remeron and xanax given overnight--would not give benzo again Improving, suspect underlying depression, did not respond well to remeron, trial prozac (2) Atrial fibrillation with rapid ventricular response: Code(s): I48.91 - Unspecified atrial fibrillation Status: Acute Assessment and Plan: Now in normal sinus rhythm, Cardiology consult appreciated, coreg dose increased Echo from May 2023 showed an EF of 70% with inferior wall hypokinesis (3) Pneumothorax: Qualifiers: Encounter type: initial encounter Pneumothorax type: traumatic Qualified Code(s): S27.0XXA - Traumatic pneumothorax, initial encounter Code(s): J93.9 - Pneumothorax, unspecified Status: Acute Assessment and Plan: supportive care, recheck CXR 10/16 No pneumothorax noted on repeat chest x-ray (4) Fracture, ribs: Qualifiers: Encounter type: initial encounter Fracture type: closed Laterality: left Qualified Code(s): S22.42XA - Multiple fractures of ribs, left side, initial encounter for closed fracture Code(s): S22.49XA - Multiple fractures of ribs, unspecified side, initial encounter for closed fracture Status: Acute Assessment and Plan: Pain management (5) Kathie esophagitis: Code(s): B37.81 - Candidal esophagitis Status: Acute Assessment and Plan: Consult GI, fluconazole initiated (6) Atherosclerotic heart disease of [place] coronary artery without angina pectoris: Code(s): I25.10 - Atherosclerotic heart disease of [place] coronary artery without angina pectoris Status: Chronic Assessment and Plan: Cont home meds (7) COPD (chronic obstructive pulmonary disease): Code(s): J44.9 - Chronic obstructive pulmonary disease, unspecified Status: Acute Assessment and Plan: Does not appear to be in acute exacerbation Plan DVT prophylaxis with SCDs GI prophylaxis not indicated Code status DNR Subjective Date/time seen: 10/21/23 11:23 Interval history: 73-year-old male with history of COPD, candidal esophagitis, heart disease, dementia, hypertension and GERD is presenting with falls and weakness and significant chest pain. Overnight patient became confused and somewhat agitated. No chest pain or shortness of breath. No nausea, vomiting or diarrhea. No fevers or chills. Ready for discharge. Review of Systems Review of Systems: 12 point review of systems was assessed and was negative except as noted in the HPI Exam Narrative: General: No acute distress, alert and oriented per baseline, cachectic HEENT: Atraumatic, normocephalic, mucous membranes moist CV: Regular rate and rhythm, S1, S2 Lungs: Coarse BS throughout Abdomen: Soft, nontender, nondistended Extremities: Normal to inspection Skin: No rashes noted, no lesions or wounds seen Psych: Flattened affect, dysthymic mood, irritable Objective Data Vital Signs Vital Signs: Vital Signs - 24 hr 10/20/23 16:18 10/20/23 20:45 10/20/23 20:38 Temperature 97.6 F 97.9 F Pulse Rate 72 72 77 Respiratory Rate 16 16 Blood Pressure 116/50 L 141/61 H Pulse Oximetry 94 97 Oxygen Delivery 10/20/23 20:00 10/21/23 03:56 10/21/23 10:23 Temperature 97 F L Pulse Rate 72 65 87 Respiratory Rate 16 16 Blood Pressure 155/58 H Pulse Oximetry 97 98 Oxygen Delivery Room Air Intake/Output Intake/Output: Intake & Output 10/18/23 10/19/23 10/20/23 10/21/23 23:59 23:59 23:59 23:59 Intake Total 1240 920 490 120 Output Total 1000 2275 5
--- NOTE | 2023-10-21 11:55 | PC.NURSE ---
Addendum entered by Kaylyn Long RN 10/21/23 18:34: Pt urine has cleared up some during this shift. Pt exhibits some confusion and is LIME. Pt is compliant with care. Pt has been monitored for any changes in status. Original Note: Pt is A&O4 male upon asking orientation questions. Pt does have hx of dementia. Pt has raspberry tea colored urine, that has not been previously documented. Pt reports flank pain and pain where ribs are fx. Pt continues with soft and bite sized diet and mildly thickened liquids. Pt is being monitored for any changes in status.
--- NOTE | 2023-10-21 13:33 | PCNFU ---
Nutrition Follow-Up Complete: Severe protein calorie malnutrition related to chronic loss of appetite, as evidenced by intakes <75% needs >1 month; NFPE findings of severe muscle wasting and fat loss Goal:Improve PO intake to 50% meals and supplements Maintain weight Pt is progressing towards goal. Continue with same goal. Pt current nutrition is Regular, soft and bite sized level 6, mildly thick liquids level 2. Nutrition recommendation: add nutrition ice cream cups as pt prefers that for supplement Last recorded weight is 49 kg. Bowel Motility: +BM 10/21 Labs Reviewed: Hgb:9.1, HCT:30.4, Alb:3.0 Meds Noted: KCL, vitamin D Skin: no skin issues noted Additional Notes: Pt continues on a soft and bite sized diet, level 2 liquids. Intake improved to 50-100%, family states he is eating much better. Pt likes the nutrition ice cream cups, does not like any of the ensures. Will change order for supplements. Monitoring intakes, weights, labs, supplement tolerance, plan of care Follow up in 5 days
[2023-10-21 14:00] VITALS: BP 133/66; PULSE 62; RESP 18; TEMP 36.5; O2SAT 96
--- NOTE | 2023-10-21 15:18 | PCPTNOTE ---
Patient refused treatment this session due to patient just working with OT and reported he was too worn out from OT and did not want to work with PT.
[2023-10-21 20:00] VITALS: PULSE 76; RESP 16; O2SAT 100
[2023-10-21 20:46] VITALS: BP 146/64; PULSE 76; RESP 16; TEMP 36.1; O2SAT 100
[2023-10-21 20:53] VITALS: PULSE 76
[2023-10-22 04:25] VITALS: BP 149/64; PULSE 77; RESP 16; TEMP 36.1; O2SAT 96
[2023-10-22 06:45] LABS: Basophils Absolute Auto 0.1 K/mm3 (0.0-0.1); Basophils Percent Auto 0.8 % (0.2-1.2); Eosinophils Absolute Auto 0.2 K/mm3 (0-0.3); Eosinophils Percent Auto 2.1 % (0-4.4); Hemoglobin 9.2 g/dL (14.0-18.0); Immature Granulocyte Absolute 0.07 K/mm3 (0.00-0.031); Immature Granulocyte Percent A 0.7 % (0-0.5); Lymphocytes Absolute Auto 1.51 K/mm3 (0.9-3.2); Lymphocytes Percent Auto 15.1 % (18.3-44.2); Mean Corpuscular HGB Conc 30.7 g/dl (32-36); Mean Corpuscular Hemoglobin 31.7 pg (26-34); Mean Corpuscular Volume 103.4 fl (80-100); Mean Platelet Volume 8.9 fl (7.4-10.4); Monocytes Absolute Auto 1.3 K/mm3 (0.1-0.6); Monocytes Percent Auto 12.7 % (2.6-8.5); Neutrophils Absolute Auto 6.9 K/mm3 (1.3-6.7); Neutrophils Percent Auto 68.6 % (45.5-73.1); Platelet Count Result 551 k/mm3 (150-375); Red Cell Distribution Width 14.5 % (11.5-14.5)
[2023-10-22 07:16] LABS: Alanine Aminotransferase 14 U/L (6-50); Albumin Level 3.2 g/dL (3.5-5.1); Alkaline Phosphatase 89 U/L (38-126); Anion Gap 2 mmol/L (8-16); Aspartate Amino Transferase 25 U/L (17-59); Bilirubin,Total 0.4 mg/dL (0.2-1.3); Blood Urea Nitrogen 11 mg/dL (9-20); Calcium 9.7 mg/dL (8.4-10.2); Carbon Dioxide 31 mmol/L (22-30); Chloride 107 mmol/L (98-107); Estimated CRCL calculation 50 ml/min; Estimated Glomerular Filt Rate > 60; Glucose 87 mg/dL (65-110); Potassium 4.7 mmol/L (3.4-5.0); Sodium 140 mmol/L (137-145)
[2023-10-22] MEDS: FLUTICASONE/UMECLIDIN/VILANTER 100-62.5-25 MCG ELLIPTA 1 PUFF INHALATION (08:36)
[2023-10-22 08:38] VITALS: O2SAT 97
[2023-10-22] MEDS: SIMVASTATIN 20 MG TABLET 40 MG PO (09:21)
[2023-10-22] MEDS: FERROUS SULFATE 325 MG TABLET DR BY MOUTH (09:21)
[2023-10-22 09:22] VITALS: PULSE 80
[2023-10-22] MEDS: carvediloL 12.5 MG TABLET PO (09:22)
[2023-10-22] MEDS: ASPIRIN 81 MG ENTERIC TABLET PO (09:22)
[2023-10-22] MEDS: LIDOCAINE 5% PATCH 1 PATCH TRANSDERM (09:26)
[2023-10-22] MEDS: CHOLECALCIFEROL 1,000 UNITS TABLET 5000 UNITS PO (09:26)
[2023-10-22] MEDS: FLUoxetine HCL 10 MG CAPSULE PO (09:26)
[2023-10-22] MEDS: ramipriL 5 MG CAPSULE PO (09:26)
[2023-10-22] MEDS: POTASSIUM CHLORIDE 20 MEQ PACKET (FOR LIQUID) 10 MEQ PO (09:27)
--- NOTE | 2023-10-22 10:15 | PCOTNOTE ---
The patient treatment was not able to be completed. Patient was wanting to get into a chair earlier but now is asleep. will attempt later. Will plan to continue treatment per plan of care.
--- NOTE | 2023-10-22 10:40 | PM.IMPN ---
Progress Note: A&P Assessment and Plan (1) Adult failure to thrive: Code(s): R62.7 - Adult failure to thrive Status: Acute Assessment and Plan: Patient presents with falls and weakness. Unsure of etiology but multifactorial likely secondary to depression with dementia TSH wnl, B12 wnl. Head CT showing no acute findings. UCx and BCx negative. MBS completed. Speech recommended Level 6 with thickened liquids. Improved appetite on remeron but changed to Prozac now Appreciate GI consult Add low dose Trazodonel at night (2) Atrial fibrillation with rapid ventricular response: Code(s): I48.91 - Unspecified atrial fibrillation Status: Acute Assessment and Plan: Patient has no history of AFib in the past. Was on Xarelto because of CAD and P 80. Patient developed AFib with RVR on 10/14/2023. He converted to normal sinus rhythm after IV diltiazem. Echo in May showing EF of 70% with inferior wall hypokinesis any does have a history of RCA occlusion. TSH is normal. Cardiology is consulted. Coreg was advanced. Appreciate Cardiology input. they recommended holding anticoagulation until patient is stronger. Patient is off telemetry. (3) Pneumothorax: Qualifiers: Encounter type: initial encounter Pneumothorax type: traumatic Qualified Code(s): S27.0XXA - Traumatic pneumothorax, initial encounter Code(s): J93.9 - Pneumothorax, unspecified Status: Acute Assessment and Plan: CT of the chest abdomen pelvis with contrast on 10/15 was performed showing no PE but did show stable subcentimeter right lung nodules, mild-moderate emphysema and tiny left apical pneumothorax. Repeat chest x-ray on 10/16 showed resolution of the pneumothorax. He is clinically doing well. Continue monitor. (4) Fracture, ribs: Qualifiers: Encounter type: initial encounter Fracture type: closed Laterality: left Qualified Code(s): S22.42XA - Multiple fractures of ribs, left side, initial encounter for closed fracture Code(s): S22.49XA - Multiple fractures of ribs, unspecified side, initial encounter for closed fracture Status: Acute Assessment and Plan: CT also showed minimally displaced fractures of the right 8th and 9th ribs posteriorly but the fall. Follow symptomatically (5) Kathie esophagitis: Code(s): B37.81 - Candidal esophagitis Status: Acute Assessment and Plan: Patient had Kathie esophagitis few months ago by EGD. No obvious thrush noted this admission but he was having pain with swallowing. As such, he was started on oral fluconazole again. Continue empiric treatment. Appreciate GI consult. Holding Aricept while on treatment. (6) Atherosclerotic heart disease of [place] coronary artery without angina pectoris: Code(s): I25.10 - Atherosclerotic heart disease of [place] coronary artery without angina pectoris Status: Chronic Assessment and Plan: As above. History has a history of CAD with chronic total occlusion of the right coronary artery. EKG when he had a flutter showed ST-T wave abnormalities in the anterior lateral and inferior leads. EKG in back normal sinus rhythm showing nonspecific ST-T wave changes diffusely. Troponins were mildly elevated probably related to the tachycardia. Cardiology where and appreciate their input. Continue medical management (7) COPD (chronic obstructive pulmonary disease): Code(s): J44.9 - Chronic obstructive pulmonary disease, unspecified Status: Acute Assessment and Plan: CT shows mild-moderate emphysema. Continue Trelegy. Plan DVT prophylaxis with SCDs GI prophylaxis not indicated Code status DNR Dispostion - SNF when arranged Subjective Date/time seen: 10/22/23 10:40 Interval history: 73yo male with history of COPD, candidal esophagitis, heart disease, dementia, hypertension and GERD is presenting with falls and weakne
--- NOTE | 2023-10-22 11:50 | PM.DS ---
DS: Admitting Diagnosis Discharge Date 10/22/23 Admitting Diagnosis Weakness DS: Discharge Diagnosis Discharge Diagnosis (1) Adult failure to thrive: Code(s): R62.7 - Adult failure to thrive Status: Acute (2) Atrial fibrillation with rapid ventricular response: Code(s): I48.91 - Unspecified atrial fibrillation Status: Acute (3) Pneumothorax: Qualifiers: Encounter type: initial encounter Pneumothorax type: traumatic Qualified Code(s): S27.0XXA - Traumatic pneumothorax, initial encounter Code(s): J93.9 - Pneumothorax, unspecified Status: Acute (4) Fracture, ribs: Qualifiers: Encounter type: initial encounter Fracture type: closed Laterality: left Qualified Code(s): S22.42XA - Multiple fractures of ribs, left side, initial encounter for closed fracture Code(s): S22.49XA - Multiple fractures of ribs, unspecified side, initial encounter for closed fracture Status: Acute (5) Kathie esophagitis: Code(s): B37.81 - Candidal esophagitis Status: Acute (6) Atherosclerotic heart disease of [place] coronary artery without angina pectoris: Code(s): I25.10 - Atherosclerotic heart disease of [place] coronary artery without angina pectoris Status: Chronic (7) COPD (chronic obstructive pulmonary disease): Code(s): J44.9 - Chronic obstructive pulmonary disease, unspecified Status: Acute DS: Summary Hospital Course Reason for hospitalization: 73yo male with history of COPD, candidal esophagitis, heart disease, dementia, hypertension and GERD is presenting with falls and weakness and significant chest pain. Please see H&P for details. Hospital Course: Patient presents with falls and weakness. Unsure of etiology but multifactorial likely secondary to depression with dementia. TSH wnl, B12 wnl. Head CT showing no acute findings. UCx and BCx negative. MBS completed. Speech recommended Level 6 with thickened liquids. Improved appetite on Remeron but changed to Prozac now. GI consulted and appreciate GI input. Patient has no history of AFib in the past.? Was on Xarelto because of CAD and PAD.? Patient developed AFib with RVR on 10/14/2023.? He converted to normal sinus rhythm after IV diltiazem.? Echo in May showing EF of 70% with inferior wall hypokinesis and he does have a history of RCA occlusion.? Cardiology was consulted and appreciated thie input. Coreg was advanced.?CT of the chest abdomen pelvis with contrast on 10/15 was performed showing no PE but did show stable subcentimeter right lung nodules, mild-moderate emphysema and tiny left apical pneumothorax.? Repeat chest x-ray on 10/16 showed resolution of the pneumothorax.? He is clinically doing well.?CT also showed minimally displaced fractures of the right 8th and 9th ribs posteriorly felt related to the fall.? Patient had Kathie esophagitis few months ago by EGD.? No obvious thrush noted this admission but he was having pain with swallowing.? As such, he was started on oral fluconazole again. We held Aricept while on treatment. Patient has a history of CAD with chronic total occlusion of the right coronary artery.? EKG when he had a flutter showed ST-T wave abnormalities in the anterior lateral and inferior leads.? EKG when he was back in normal sinus rhythm showing nonspecific ST-T wave changes diffusely.? Troponins were mildly elevated probably related to the tachycardia. Cardiology aware and appreciate their input. He did well with therapy. He overall did well and was able to be discharged on 10/22/23. No answer at 's phone. Discussed hospital course and discharge plan with son Status at Discharge Cognitive/behavioral status at discharge: stable Time Spent with Patient Time attestation: Total time spent providing and/or coordinating discharge services:45 minutes Time spent: Greater than 30 minutes Exam Narrative: AF 97.0 149/64 80 16 97% ra Gen Anjum GARCIA
--- NOTE | 2023-10-22 12:51 | P.CDI_ITS ---
CDI Query Clarification Request BMI 16.1 Nutritional Diagnostic Statement Severe protein calorie malnutrition related to chronic loss of appetite, as evidenced by intakes <75% needs > 1 month; NFPE findings of severe muscle wasting and fat loss. Please refer to the comprehensive nutrition assessment for further information. Please clarify severity of protein calorie malnutrition if known: * Mild * Moderate * Severe * Other/ Unspecified
--- NOTE | 2023-10-22 15:11 | PC.NURSE ---
Pt discharged to [facility]. Report was called to Raghavendra. Pt reports pain from fx ribs on R side. Pt denies any other needs. Pt has participated and contributed in plan of care while here. Pt compliant with care, but refusing therapy. Pt was wheeled down to personal vehicle with belongings. Pts transported pt. Pt has been monitored for any changes in status while here.
[2023-10-25 18:41] LABS: Soluble Transferrin Receptor 1.26 mg/L (0.76-1.76)
[2023-10-26 03:02] LABS: Methylmalonic Acid 297 nmol/L (87-318)
--- NOTE | 2023-10-28 08:51 | PC.NURSE ---
MMA- WNL at 297 STR- WNL at 1.26 Dr. Arceo aware
== END 2023-10-22 13:45 | DRG 884 ==
LOC: ANHED 10-15 02:47 → ANHIMU 10-15 06:05 → ANH3MEDSUR 10-20 16:20
PROVIDERS: Internal Medicine Cardiovascular Disease; Nurse Practitioner Family; Student in an Organized Health Care Education/Training Program; Admitting Provider Internal Medicine; Emergency Provider Emergency Medicine; PCP Internal Medicine; Visit Provider Internal Medicine
DX: F03.93 Unspecified dementia, unspecified severity, with mood disturbance (principal); E43 Unspecified severe protein-calorie malnutrition; S22.41XA Multiple fractures of ribs, right side, initial encounter for closed fracture; R64 Cachexia; B37.81 Candidal esophagitis; Z68.1 Body mass index [BMI] 19.9 or less, adult; S27.0XXA Traumatic pneumothorax, initial encounter; I47.29 Other ventricular tachycardia; F32.A Depression, unspecified; R62.7 Adult failure to thrive; W19.XXXA Unspecified fall, initial encounter; I48.0 Paroxysmal atrial fibrillation; Z23 Encounter for immunization; I25.10 Atherosclerotic heart disease of native coronary artery without angina pectoris; J44.9 Chronic obstructive pulmonary disease, unspecified; Z20.822 Contact with and (suspected) exposure to COVID-19; I73.9 Peripheral vascular disease, unspecified; K21.9 Gastro-esophageal reflux disease without esophagitis; I10 Essential (primary) hypertension; D64.9 Anemia, unspecified; E87.6 Hypokalemia; F17.210 Nicotine dependence, cigarettes, uncomplicated; Z66 Do not resuscitate; Z95.5 Presence of coronary angioplasty implant and graft
CPT/HCPCS: 36415; 70450; 71045; 71046; 71260; 72125; 74177; 80048; 80053; 81001; 82607; 82728; 82746; 82948; 83540; 83550; 83605; 83615; 83735; 83880; 83921; 84238; 84443; 84484; 85025; 85610; 86850; 86900; 86901; 87040; 87086; 87088; 87637; 90471; 90694; 92610; 93005; 94640; 97110; 97161; 97165; 97530; 97535; 99285; A9270; G0008; J0696; J2270; J3475; J3480; J7030; J7040; Q9967

== ENCOUNTER 2023-10-31 11:19 | Emergency (ER) | payer MEDICARE, OTHER, SELFPAY ==
[2023-10-31] VITALS (37 sets, daily range): BP systolic 97–133; BP diastolic 48–68; PULSE 59–92; RESP 14–26; TEMP 36.4; O2SAT 83–100
--- NOTE | ~2023-10-31 | XR_ITS ---
XR chest 2V 10/31/2023 13:05 Indication: Syncope Procedure: 2 view chest Comparison: Comparison to multiple prior studies sequentially, with oldest reviewed study dated Bruce rison to multiple prior studies sequentially, with oldest reviewed study dated 05/08/2022. . Findings: Heart size normal. No focal air space disease, pulmonary edema, pleural effusion or suspect ed pneumothorax. There are small pleural effusions. The lungs are hyperinflated which is consistent w ith, but not diagnostic of chronic obstructive pulmonary disease. Bibasilar atelectasis. Impression: 1: Small pleural effusions with bibasilar atelectasis. Reviewed, dictated and finalized at location B. [employer] [employer] Impression: 1: Small pleural effusions with bibasilar atelectasis.
--- NOTE | ~2023-10-31 | CT_ITS ---
CT head without contrast Indication: Syncope COMPARISON: 10/15/2023 Technique: Serial scans were obtained through the brain without the administration of contrast. Dose reduction technique was used on this scan by utilizing automated exposure control and iterative recon struction technique. The dose-length product (DLP) was 605.33 mGy-cm. Findings: There is no evidence of intracranial hemorrhage, mass lesion, or acute infarct. The ventri cles and subarachnoid spaces are dilated, consistent with mild atrophy. Low attenuation regions are seen within the periventricular white matter bilaterally, likely representing changes from chronic mi crovascular ischemic disease. There is no evidence of edema, mass effect or midline shift. The visu alized paranasal sinuses and mastoid air cells are clear. Impression: No intracranial hemorrhage, mass, or acute infarct. Atrophy and chronic white matter changes, as above. Reviewed, dictated and finalized at location . ILE PIN WORKER Impression: No intracranial hemorrhage, mass, or acute infarct. Atrophy and chronic white matter changes, as above.
--- NOTE | 2023-10-31 11:27 | ECG_ITS ---
Measurements Intervals [place] Rate: 69 P: 84 GA: 172 QRS: 69 QRSD: 88 T: 76 QT: 434 QTc: 467 Interpretive Statements SINUS RHYTHM INCOMPLETE RIGHT BUNDLE BRANCH BLOCK BORDERLINE ECG COMPARED TO ECG 10/14/2023 23:49:44 NO SIGNIFICANT CHANGE Electronically Signed On 10-31-2023 13:35:47 [employer] by Usman Lemus M.D.
--- NOTE | 2023-10-31 12:19 | ED.SYNCOPE ---
HPI - Syncope General Chief Complaint: Syncope <LYN Quiroz Last Filed: 10/31/23 16:08> Stated Complaint: abnormal VS, s/p episode of unresponsiveness <LYN Quiroz Last Filed: 10/31/23 16:08> Time Seen by Provider: 10/31/23 11:47 <Debbie Leggett PA-C - Last Filed: 10/31/23 16:08> Source: patient <LYN Quiroz Last Filed: 10/31/23 16:08> Mode of arrival: EMS <LYN Quiroz Last Filed: 10/31/23 16:08> Limitations: dementia <LYN Quiroz Last Filed: 10/31/23 16:08> History of Present Illness HPI narrative: This is a 73 year old male that presents to the ER for a syncopal episode. reports he was just discharged from [facility] facility. They brought him inside. He sat down and then slumped into the chair. Reports he was not responding to them. They called EMS for further evaluation. Patient is now alert and oriented. He has no focal complaints currently. Denies chest pain, shortness of breath, or palpitations. <Debbie Leggett PA-C - Last Filed: 10/31/23 16:08> Related Data Home Medications: Home Medications Medication Instructions Recorded Confirmed aspirin 81 mg tablet,delayed 81 mg PO DAILY 11/11/19 10/15/23 release (Adult Low Dose Aspirin) ramipril 5 mg capsule 5 mg PO DAILY 09/06/20 10/15/23 simvastatin 40 mg tablet 40 mg PO DAILY 09/06/20 10/15/23 rivaroxaban 2.5 mg tablet (Xarelto) 2.5 mg PO DAILY 09/19/21 10/15/23 cholecalciferol (vitamin D3) 125 125 mcg PO DAILY 05/09/22 10/15/23 mcg (5,000 unit) capsule furosemide 20 mg tablet 20 mg PO DAILY 07/14/23 10/15/23 carvedilol 6.25 mg tablet 6.25 mg PO BID 10/31/23 <LYN Quiroz Last Filed: 10/31/23 16:08> Allergies/Adverse Reactions: Allergies Allergy/AdvReac Type Severity Reaction Status Date / Time No Known Allergies Allergy Verified 10/31/23 11:38 <Debbie Leggett PA-C - Last Filed: 10/31/23 16:08> Review of Systems Review of Systems: CONSTITUTIONAL: Denies fever CARDIOVASCULAR: Denies chest pain, palpitations RESPIRATORY: Denies dyspnea. GASTROINTESTINAL: Denies vomiting MUSCULOSKELETAL: Denies back pain, joint pain, or myalgia. NEUROLOGIC: Denies numbness, or weakness. <Debbie Leggett PA-C - Last Filed: 10/31/23 16:08> All systems reviewed & are unremarkable except as noted in HPI and below <Debbie Leggett PA-C - Last Filed: 10/31/23 16:08> [facility] Past Medical History Medical History: Medical History (Updated 10/31/23 @ 16:01 by Debbie Leggett PA-C) Kathie esophagitis COPD mixed type Coronary artery disease History multivessel stenting, chronic occlusion of the right coronary artery Dementia Duodenal ulcer Essential (primary) hypertension Gastro-esophageal reflux disease without esophagitis History of candidiasis Nonsustained ventricular tachycardia Odynophagia Paroxysmal atrial fibrillation with RVR Protein calorie malnutrition Tobacco dependence <Debbie Leggett PA-C - Last Filed: 10/31/23 16:08> Surgical History Surgical History: Surgical History (Updated 10/20/23 @ 14:48 by Tatianna Oneill APRN) H/O wrist surgery History of ankle surgery History of hernia repair History of PTCA 4 heart stents Hx of tonsillectomy <Debbie Leggett PA-C - Last Filed: 10/31/23 16:08> Family History Family History: Family History Mother Patient's mother is Cerebrovascular accident Father Patient's father is Sibling Family history of malignant neoplasm of ovary Grandparent Acute myocardial infarction <Debbie Leggett PA-C - Last Filed: 10/31/23 16:08> Social History Social History: Social History Social History: Surrogate medical decision maker: Riley Meyers, . Code status: Full code. Smoking pac
[2023-10-31 12:41] LABS: Basophils Absolute Auto 0.1 K/mm3 (0.0-0.1); Basophils Percent Auto 0.6 % (0.2-1.2); Eosinophils Absolute Auto 0.1 K/mm3 (0-0.3); Eosinophils Percent Auto 0.6 % (0-4.4); Hematocrit 29.3 % (42.0-52.0); Hemoglobin 8.9 g/dL (14.0-18.0); Immature Granulocyte Percent A 0.8 % (0-0.5); Lymphocytes Absolute Auto 0.82 K/mm3 (0.9-3.2); Lymphocytes Percent Auto 6.6 % (18.3-44.2); Mean Corpuscular HGB Conc 30.4 g/dl (32-36); Mean Corpuscular Hemoglobin 31.3 pg (26-34); Mean Corpuscular Volume 103.2 fl (80-100); Monocytes Percent Auto 8.1 % (2.6-8.5); Neutrophils Absolute Auto 10.4 K/mm3 (1.3-6.7); Neutrophils Percent Auto 83.3 % (45.5-73.1); Platelet Count Result 672 k/mm3 (150-375); Red Blood Count 2.84 M/mm3 (4.6-6.20); Red Cell Distribution Width 14.1 % (11.5-14.5); White Blood Count 12.5 K/mm3 (4.5-10.0)
[2023-10-31 13:03] LABS: Troponin I < 0.012 ng/mL (0.000-0.034)
[2023-10-31] MEDS: SODIUM CHLORIDE 0.9% IV 500 ML 999 ML IV CONT (14:25)
[2023-10-31 15:50] LABS: Appearance Urine Clear (Clear); Bacteria Urine None Seen /hpf; Bilirubin Urine Negative (Negative); Blood Urine Negative (Negative); Color Urine Yellow (Yellow); Glucose Urine UA Negative (Negative); Hyaline Casts Urine Present /lpf; Ketones Urine Negative (Negative); Leukocyte Esterase Ur 1+ LEU/UL (Negative); Nitrate Urine Negative (Negative); Protein Urine Trace mg/dL (Negative); Specific Grav Ur 1.016 (1.001-1.035); Squamous Epithelial Cell Urine Occasional /hpf (Few); WBC Urine 0-5 /hpf; pH Urine 6.5 (5.0-9.0)
[2023-10-31 15:52] LABS: Add Urine Microscopic? YES
== END 2023-10-31 18:25 | disposition home or self-care (01) ==
PROVIDERS: Emergency Medicine; Emergency Provider Physician Assistant; PCP Internal Medicine
DX: R55 Syncope and collapse (principal); L03.032 Cellulitis of left toe; F03.90 Unspecified dementia, unspecified severity, without behavioral disturbance, psychotic disturbance, mood disturbance, and anxiety; J44.9 Chronic obstructive pulmonary disease, unspecified; I25.10 Atherosclerotic heart disease of native coronary artery without angina pectoris; I10 Essential (primary) hypertension; I48.0 Paroxysmal atrial fibrillation; K21.9 Gastro-esophageal reflux disease without esophagitis; F17.210 Nicotine dependence, cigarettes, uncomplicated; Z95.5 Presence of coronary angioplasty implant and graft; Z79.82 Long term (current) use of aspirin; Z79.01 Long term (current) use of anticoagulants; I45.10 Unspecified right bundle-branch block; J90 Pleural effusion, not elsewhere classified
CPT/HCPCS: 10060; 36415; 70450; 71046; 81001; 84484; 85025; 93005; 96360; 99284; J7040

== ENCOUNTER 2023-11-02 16:59 | Inpatient (IN) | payer MEDICARE, OTHER, SELFPAY ==
[2023-11-02] VITALS (22 sets, daily range): BP systolic 97–139; BP diastolic 60–84; PULSE 96–153; RESP 19–29; TEMP 36.4–37; O2SAT 98–100
--- NOTE | ~2023-11-02 | XR_ITS ---
XR chest 1V portable 11/02/2023 17:39 Indication: Dyspnea with tachycardia Procedure: AP portable chest Comparison: 10/16/2023 Findings: Heart size normal. The lungs are hyperinflated which is consistent with, but not diagnostic of chronic obstructive pulmonary disease. Left lung unremarkable. Focal opacity right mid thorax whi ch may represent overlapping confluence of structures, although focal developing infiltrate not exclu ded. Impression: 1: Possible new focal developing infiltrate right mid thorax. Recommend attention to this on follow-u p examination. Reviewed, dictated and finalized at location A. MAKER P[employer]ERBOARD Impression: 1: Possible new focal developing infiltrate right mid thorax. Recommend attenti on to this on follow-up examination.
--- NOTE | ~2023-11-02 | XR_ITS ---
EXAMINATION: XR chest 1V portable Exam Date/Time: 11/08/2023 12:35 PEDIATRIC ASSOCIATE HISTORY: pneumonia Comparison: 11/02/2023. RESULT: Lines, tubes, and devices: None. Lungs and pleura: Emphysematous and senescent change. Focal right lung opacities correspond with ove rlapping structures and are likely artifactual. Cardiomediastinal silhouette: Stable. Other: No acute osseous or upper abdominal finding. IMPRESSION: No acute cardiopulmonary process. Reviewed, dictated and finalized at location K. ATRIC ASSOCIATE
--- NOTE | ~2023-11-02 | CT_ITS ---
EXAMINATION:CT diagnostic chest w con DATE: 11/03/2023 16:53 INDICATION: Abnormal chest radiograph. TECHNIQUE: Computed tomography (CT) of the chest was performed with 75 mL Omnipaque 350 intravenous c ontrast. Automated exposure control and iterative reconstruction technique were employed. The dose-le ngth product (DLP) was 169.99 mGy-cm. COMPARISON: Chest view 11/02/2023, chest CT 10/15/2023 FINDINGS: There is moderate emphysema. There are two 3 mm nodules in right lung, likely benign. There are small pleural effusions. There is mild dependent atelectasis bilaterally. A calcified right lung nodule and calcified mediastinal lymph node are consistent with old granulomatous disease. The heart size is normal. There are coronary artery calcifications. No pericardial effusion. There is calcifie d atherosclerosis of the aorta and many of the other arteries. There is severe thoracic spondylosis. There is mild chronic anterior wedging of multiple vertebral bodies. There are healing fractures of r ight eighth, ninth, and 10th ribs. IMPRESSION: 1. Moderate emphysema. 2. Small pleural effusions. Reviewed, dictated and finalized at location E. DER BLOWER
--- NOTE | 2023-11-02 17:05 | ECG_ITS ---
Measurements Intervals [place] Rate: 145 P: MI: 0 QRS: 90 QRSD: 86 T: 64 QT: 290 QTc: 452 Interpretive Statements SINUS TACHYCARDIA INDETERMINATE AXIS NONSPECIFIC T-WAVE ABNORMALITY ABNORMAL RHYTHM ECG COMPARED TO ECG 10/31/2023 11:23:23 HEART RATE IS ACCELERATED Electronically Signed On 11-03-2023 14:56:38 LORRY WEIGHER by Usman Lemus M.D.
--- NOTE | 2023-11-02 17:09 | ED.SOB ---
HPI - SOB/Dyspnea General Chief Complaint: Shortness of Breath/Dyspnea <Garrett Ross APRN - Last Filed: 11/03/23 08:00> Stated Complaint: dyspnea <Garrett Ross APRN - Last Filed: 11/03/23 08:00> Time Seen by Provider: 11/02/23 17:06 <Garrett Ross APRN - Last Filed: 11/03/23 08:00> Source: patient <Garrett Ross APRN - Last Filed: 11/03/23 08:00> Mode of arrival: ambulatory <Garrett Ross APRN - Last Filed: 11/03/23 08:00> Limitations: no limitations <Garrett Ross APRN - Last Filed: 11/03/23 08:00> History of Present Illness HPI Narrative: Nikita is a 73-year-old male patient presenting to the ER today with complaints shortness of breath. EMS reports that they went to his home today for reports of shortness of breath and found him with SpO2 sats in the 80s. Heart rate was elevated at 155. EMS gave him a DuoNeb treatment while in route. He denies any fever or chills. Was just seen here on October 31 were syncopal episode and discharged home. Denies any chest pain currently. Family reports he had a dark black stool this morning. <Garrett Ross APRN - Last Filed: 11/03/23 08:00> Related Data Home Medications: Home Medications Medication Instructions Recorded Confirmed aspirin 81 mg tablet,delayed 81 mg PO DAILY 11/11/19 11/02/23 release (Adult Low Dose Aspirin) ramipril 5 mg capsule 5 mg PO DAILY 09/06/20 11/02/23 simvastatin 40 mg tablet 40 mg PO DAILY 09/06/20 11/02/23 rivaroxaban 2.5 mg tablet (Xarelto) 2.5 mg PO DAILY 09/19/21 11/02/23 cholecalciferol (vitamin D3) 125 125 mcg PO DAILY 05/09/22 11/02/23 mcg (5,000 unit) capsule furosemide 20 mg tablet 20 mg PO DAILY 07/14/23 11/02/23 carvedilol 6.25 mg tablet 6.25 mg PO BID 10/31/23 11/02/23 <Garrett Ross APRN - Last Filed: 11/03/23 08:00> Allergies/Adverse Reactions: Allergies Allergy/AdvReac Type Severity Reaction Status Date / Time No Known Allergies Allergy Verified 11/02/23 17:08 <Garrett Ross APRN - Last Filed: 11/03/23 08:00> Review of Systems Review of Systems: Pertinent positives per HPI. Patient denies any fever, chills, rash, headache, visual changes, dizziness, cough, runny nose, sore throat, chest pain, palpitations, nausea, vomiting, diarrhea, constipation, abdominal pain, or any urinary issues. <Garrett Ross APRN - Last Filed: 11/03/23 08:00> [facility] Past Medical History Medical History: Medical History (Updated 11/03/23 @ 06:19 by Doreen Campos DO) CHF (congestive heart failure) Echocardiogram 08/2023: EF of greater than 70%, severe hypokinesis to akinesis of basal inferior segment, grade 2 diastolic dysfunction, right ventricular not well visualized may be mildly enlarged and hypokinetic, no pulmonary hypertension, dilated inferior vena cava greater than 50% collapse with inspiration consistent with elevated right atrial pressure COPD mixed type Coronary artery disease History multivessel stenting, chronic occlusion of the right coronary artery Dementia Duodenal ulcer Essential (primary) hypertension Gastro-esophageal reflux disease without esophagitis History of candidiasis Nonsustained ventricular tachycardia Odynophagia Paroxysmal atrial fibrillation with RVR Peripheral arterial disease Protein calorie malnutrition Tobacco dependence Vitamin D deficiency <Garrett Ross APRN - Last Filed: 11/03/23 08:00> Surgical History Surgical History: Surgical History H/O wrist surgery History of ankle surgery History of hernia repair History of PTCA 4 heart stents Hx of tonsillectomy <Garrett Ross APRN - Last Filed: 11/03/23 08:00> Family History Family History: Family History Mother Patient's mother is Cerebrovascular accident Father
[2023-11-02 17:16] LABS: Alveolar/Arterial O2 Gradient < 0.0 mmHg; Base Excess ABG 1.5 mEq/l (+/-2.0); Fractional Inspired Oxygen 21 %; HCO3 ABG 25.7 mEq/l (22.0-26.0); Oxygen Content ABG 13.2 %vol (16.0-22.0); Oxygen Saturation ABG 98.1 % (95.0-100.0); PCO2 ABG 39.1 mmHg (35.0-45.0); PO2 ABG 107.3 mmHg (80.0-100.0); PO2 FiO2 Ratio Arterial Blood 5.11 %; Total Hemoglobin 10.8 g/dL (12.0-18.0); pH ABG 7.436 (7.350-7.450)
[2023-11-02 17:17] LABS: Device ROOM AIR; Modified Allen's Test Pass; Oxyhemoglobin 85.5 % THb (90.0-100.0); Site Drawn RIGHT RADIAL
[2023-11-02] MEDS: SODIUM CHLORIDE 0.9% IV 500 ML 999 ML IV CONT (17:45)
[2023-11-02 17:53] LABS: Basophils Absolute Auto 0.1 K/mm3 (0.0-0.1); Basophils Percent Auto 0.6 % (0.2-1.2); Eosinophils Percent Auto 0.1 % (0-4.4); Hematocrit 33.2 % (42.0-52.0); Hemoglobin 10.1 g/dL (14.0-18.0); Immature Granulocyte Absolute 0.21 K/mm3 (0.00-0.031); Immature Granulocyte Percent A 1.2 % (0-0.5); Lymphocytes Absolute Auto 1.11 K/mm3 (0.9-3.2); Lymphocytes Percent Auto 6.5 % (18.3-44.2); Mean Corpuscular HGB Conc 30.4 g/dl (32-36); Mean Corpuscular Volume 101.8 fl (80-100); Mean Platelet Volume 8.8 fl (7.4-10.4); Monocytes Absolute Auto 1.4 K/mm3 (0.1-0.6); Monocytes Percent Auto 8.1 % (2.6-8.5); Neutrophils Absolute Auto 14.4 K/mm3 (1.3-6.7); Neutrophils Percent Auto 83.5 % (45.5-73.1); Platelet Count Result 834 k/mm3 (150-375); Red Blood Count 3.26 M/mm3 (4.6-6.20); Red Cell Distribution Width 14.3 % (11.5-14.5); White Blood Count 17.2 K/mm3 (4.5-10.0)
[2023-11-02 18:04] LABS: Prothrombin Time 13.7 Seconds (11.1-14.7)
[2023-11-02 18:05] LABS: Partial Thromboplastin Time 31.5 SECONDS (22.3-36.8)
[2023-11-02 18:06] LABS: Alanine Aminotransferase 16 U/L (6-50); Albumin Level 3.7 g/dL (3.5-5.1); Alkaline Phosphatase 133 U/L (38-126); Anion Gap 8 mmol/L (8-16); Aspartate Amino Transferase 22 U/L (17-59); Bilirubin,Total 0.4 mg/dL (0.2-1.3); Blood Urea Nitrogen 14 mg/dL (9-20); Calcium 9.9 mg/dL (8.4-10.2); Carbon Dioxide 28 mmol/L (22-30); Chloride 105 mmol/L (98-107); Estimated CRCL calculation 57 ml/min; Estimated Glomerular Filt Rate > 60; Glucose 135 mg/dL (65-110); Potassium 4.4 mmol/L (3.4-5.0); Sodium 141 mmol/L (137-145)
[2023-11-02 18:18] LABS: D Dimer 0.97 ug/mL (<0.48)
[2023-11-02 18:35] LABS: Appearance Urine Cloudy (Clear); Bacteria Urine None Seen /hpf; Bilirubin Urine Negative (Negative); Blood Urine 3+ (Negative); Color Urine Yellow (Yellow); Glucose Urine UA Negative (Negative); Ketones Urine Negative (Negative); Leukocyte Esterase Ur Trace LEU/UL (Negative); Need Manual Microscopic Reviewed; Nitrate Urine Negative (Negative); Protein Urine 2+ mg/dL (Negative); RBC Urine >100 /hpf (0-2); Specific Grav Ur 1.018 (1.001-1.035); Squamous Epithelial Cell Urine None seen /hpf (Few); pH Urine 5.5 (5.0-9.0)
[2023-11-02 18:37] LABS: Add Urine Microscopic? YES
[2023-11-02 18:43] LABS: NT Pro B Type Natriuretic Pept 4460 pg/mL (19.9-100); Troponin I 0.056 ng/mL (0.000-0.034)
[2023-11-02 20:11] LABS: Lactic Acid Reflex 1.4 mmol/L (0.7-2.0)
[2023-11-02] MEDS: AZITHROMYCIN 500 MG/NS 250 ML 500 MG/250 ML BAG 250 MG IVPB (20:32)
[2023-11-02 20:34] LABS: Influenza A QL RT-PCR Negative (Negative); Influenza B QL RT-PCR Negative (Negative); RSV RNA, RT-PCR Negative (Negative); SARS-CoV-2 RNA PCR Negative (Negative)
--- NOTE | 2023-11-02 20:39 | PM.IMHP ---
H&P: HPI History of Present Illness Date/Time: 11/02/23 20:39 Chief Complaint: Trouble breathing Narrative: 79 year old male with a past medical history of COPD, dementia, multivessel coronary artery disease, paroxysmal atrial fibrillation and chronic continued tobacco use who presented to the ER with difficulty breathing. Source of information is from past medical records and patient report. Patient is a fair to poor historian. He reports his that he has been having 3-4 days of increased shortness of breath. Is been accompanied by a cough that is occasionally productive of clear to yellow phlegm. He denies any fevers but has been having some chills. He denies any chest pain. On arrival to the ER he was noted to have are rate of 145. IV fluids 500 mL with improvement heart rate down into 90s to 100s. The patient was noted to have elevated white count and imaging was consistent with pneumonia. The patient's viral panel was negative for COVID flu and RSV. Patient reports decreased appetite. He denies any chest pain. He is noted to have labored respirations it is worse with conversation. He thinks that he has been compliant with his home Xarelto. He states that he takes his meds if his tells him. His T time I was above the cutoff for normal but normal for adjusted age. And the patient's tachycardia has resolved after IV fluid hydration. The patient does fit sepsis criteria and was admitted for treatment of such and was given Rocephin and azithromycin in the ER. On exam the patient was noted to have a small abscess to the right lateral paraspinal area around T8 abscess was superficial and was leaking a small amount of purulent fluid which was expressed during exam. Patient reports that the area is acutely painful to palpation. Also patient has syncopal event 2 days ago. Patient cannot give me any details regarding the syncopal event. He was evaluated in the ER. The patient and family opted to take the patient home that day. He has not had a recurrence of syncope. HPI was obtained from review of ER records and external medical records as well as patient report. Review of Systems Review of Systems: Review of systems was attempted but limited as patient has history of dimension is only a fair to poor historian. [facility] Past Medical History Medical History (Updated 11/03/23 @ 06:19 by Doreen Campos DO) CHF (congestive heart failure) Echocardiogram 08/2023: EF of greater than 70%, severe hypokinesis to akinesis of basal inferior segment, grade 2 diastolic dysfunction, right ventricular not well visualized may be mildly enlarged and hypokinetic, no pulmonary hypertension, dilated inferior vena cava greater than 50% collapse with inspiration consistent with elevated right atrial pressure COPD mixed type Coronary artery disease History multivessel stenting, chronic occlusion of the right coronary artery Dementia Duodenal ulcer Essential (primary) hypertension Gastro-esophageal reflux disease without esophagitis History of candidiasis Nonsustained ventricular tachycardia Odynophagia Paroxysmal atrial fibrillation with RVR Peripheral arterial disease Protein calorie malnutrition Tobacco dependence Vitamin D deficiency Surgical History Surgical History H/O wrist surgery History of ankle surgery History of hernia repair History of PTCA 4 heart stents Hx of tonsillectomy Family History Family History Mother Patient's mother is Cerebrovascular accident Father Patient's father is Sibling Family history of malignant neoplasm of ovary Grandparent Acute myocardial infarction Social History Social History (Updated 11/02/23 @ 20:44 by Doreen Campos DO) Social History: Surrogate medical decision maker: Riley Meyers, . Code status: DNR/DNI Arianna
[2023-11-02 20:55] LABS: Procalcitonin 0.1 ng/mL
[2023-11-02 21:14] LABS: Troponin I 0.077 ng/mL (0.000-0.034)
--- NOTE | 2023-11-02 21:35 | ADMGEN ---
This patient, Nikita Meyers, was admitted to IMU Room 206-01. Patient/family oriented to hospital policies and general routines including ID bracelet, bed and alarms, visiting hours, pain management, procedures, bathroom and other care routines, personal items, smoking policy, room service/diet, and visiting hours. Information on how to activate the Rapid Response Team has been discussed. Patient/Family are encouraged to report perceived risks to care and to ask questions if they do not understand what they are told or what they should do.
[2023-11-02] MEDS: SODIUM CHLORIDE 0.9% IV 1,000 ML 100 ML IV CONT (22:29)
[2023-11-03] VITALS (26 sets, daily range): BP systolic 101–163; BP diastolic 51–77; PULSE 64–101; RESP 16–22; TEMP 35.8–36.8; O2SAT 95–100; BMI 16.9
[2023-11-03 00:11] LABS: Troponin I 0.093 ng/mL (0.000-0.034)
[2023-11-03 05:37] LABS: Basophils Absolute Auto 0.1 K/mm3 (0.0-0.1); Basophils Percent Auto 0.7 % (0.2-1.2); Eosinophils Absolute Auto 0.1 K/mm3 (0-0.3); Eosinophils Percent Auto 1.2 % (0-4.4); Hematocrit 26.8 % (42.0-52.0); Hemoglobin 8.2 g/dL (14.0-18.0); Immature Granulocyte Absolute 0.08 K/mm3 (0.00-0.031); Immature Granulocyte Percent A 0.7 % (0-0.5); Lymphocytes Absolute Auto 1.54 K/mm3 (0.9-3.2); Lymphocytes Percent Auto 13.8 % (18.3-44.2); Mean Corpuscular HGB Conc 30.6 g/dl (32-36); Mean Corpuscular Hemoglobin 31.8 pg (26-34); Mean Corpuscular Volume 103.9 fl (80-100); Mean Platelet Volume 9.4 fl (7.4-10.4); Monocytes Absolute Auto 1.5 K/mm3 (0.1-0.6); Neutrophils Absolute Auto 7.9 K/mm3 (1.3-6.7); Neutrophils Percent Auto 70.6 % (45.5-73.1); Platelet Count Result 641 k/mm3 (150-375); Red Blood Count 2.58 M/mm3 (4.6-6.20); Red Cell Distribution Width 14.4 % (11.5-14.5); White Blood Count 11.1 K/mm3 (4.5-10.0)
[2023-11-03 06:16] LABS: Anion Gap 6 mmol/L (8-16); Blood Urea Nitrogen 14 mg/dL (9-20); Calcium 9.2 mg/dL (8.4-10.2); Carbon Dioxide 24 mmol/L (22-30); Chloride 111 mmol/L (98-107); Estimated CRCL calculation 64 ml/min; Estimated Glomerular Filt Rate > 60; Glucose 90 mg/dL (65-110); Magnesium 1.7 mg/dL (1.6-2.3); Potassium 4.5 mmol/L (3.4-5.0); Sodium 141 mmol/L (137-145)
[2023-11-03] MEDS: FLUTICASONE/UMECLIDIN/VILANTER 100-62.5-25 MCG ELLIPTA 1 PUFF INHALATION (07:20)
[2023-11-03] MEDS: ALBUTEROL SULFATE NEB 2.5 MG/3 ML INH 5 MG INHALATION ×3 (07:23→19:53)
[2023-11-03] MEDS: IPRATROPIUM BR 0.02% INH SOLN 0.5 MG/2.5 ML VIAL INHALATION ×3 (07:23→19:53)
[2023-11-03] MEDS: CHOLECALCIFEROL 1,000 UNITS TABLET 5000 UNITS PO (09:28)
[2023-11-03] MEDS: RIVAROXABAN 2.5 MG TABLET PO (09:28)
[2023-11-03] MEDS: carvediloL 6.25 MG TABLET PO ×2 (09:28→20:41)
[2023-11-03] MEDS: SODIUM CHLORIDE 0.9% IV 1,000 ML 100 ML IV CONT ×2 (09:28→20:40)
[2023-11-03] MEDS: ASPIRIN 81 MG ENTERIC TABLET PO (09:28)
[2023-11-03] MEDS: SIMVASTATIN 20 MG TABLET 40 MG PO (09:28)
[2023-11-03] MEDS: FERROUS SULFATE 325 MG TABLET DR BY MOUTH ×2 (09:28→17:43)
[2023-11-03] MEDS: ramipriL 5 MG CAPSULE PO (09:29)
--- NOTE | 2023-11-03 14:36 | PM.IMPN ---
Progress Note: A&P Assessment and Plan (1) Pneumonia: Qualifiers: Laterality: right Lung location: middle lobe of lung Pneumonia type: due to unspecified organism Qualified Code(s): J18.9 - Pneumonia, unspecified organism Code(s): J18.9 - Pneumonia, unspecified organism Status: Acute Assessment and Plan: rocephin and azithromycin CT ordered (2) Acute hypoxic respiratory failure: Code(s): J96.01 - Acute respiratory failure with hypoxia Status: Acute Assessment and Plan: 2L O2 CT chest ordered (3) Sepsis: Qualifiers: Sepsis type: sepsis due to unspecified organism Sepsis acute organ dysfunction status: with acute organ dysfunction Severe sepsis acute organ dysfunction type: acute respiratory failure Acute respiratory failure type: with hypoxia Severe sepsis shock status: without septic shock Qualified Code(s): A41.9 - Sepsis, unspecified organism; R65.20 - Severe sepsis without septic shock; J96.01 - Acute respiratory failure with hypoxia Code(s): A41.9 - Sepsis, unspecified organism Status: Acute Assessment and Plan: meets sepsis criteria with tachycardia, tachypnea and leukocytosis in the setting of pneumonia. blood cultures pending. IV fluid resuscitation and is on antibiotic therapy with Rocephin and azithromycin UA culture pending (4) COPD (chronic obstructive pulmonary disease): Qualifiers: COPD type: COPD with acute lower respiratory infection Qualified Code(s): J44.0 - Chronic obstructive pulmonary disease with (acute) lower respiratory infection Code(s): J44.9 - Chronic obstructive pulmonary disease, unspecified Status: Chronic Assessment and Plan: continue scheduled nebulizer treatments (5) CHF (congestive heart failure): Qualifiers: Heart failure type: right-sided Heart failure chronicity: chronic Qualified Code(s): I50.812 - Chronic right heart failure Code(s): I50.9 - Heart failure, unspecified Status: Chronic Assessment and Plan: strict I&O, daily weights holding home diuretic therapy for now continue to monitor continue patient's home Coreg, baby aspirin, LEOBARDO-inhibitor and statin (6) Protein calorie malnutrition: Qualifiers: Protein-calorie malnutrition severity: unspecified severity Qualified Code(s): E46 - Unspecified protein-calorie malnutrition Code(s): E46 - Unspecified protein-calorie malnutrition Status: Chronic Assessment and Plan: dietary consulted, supplements ordered Subjective Date/time seen: 11/03/23 14:36 Interval history: Patient is sleeping soundly when arrived to bedside for exam. He is in no acute distress, reporting no chest pain or SOB. Closely monitor for sepsis, BC pending and will continue rocephin and azithromycin. Dietary consulted for supplementation for he is failure to thrive due to poor intake. UA culture pending. Will order CT of his chest as his XR was abnormal but not definitive. Requiring 2L O2 NC, his troponins are elevated but could be from sepsis as he continues to be asymptomatic. Will trend labs and monitor closely. Review of Systems Review of Systems: Review of systems was attempted but limited as patient has history of dimension is only a fair to poor historian. Exam Narrative: Weight 47.5 kg BMI 16.9 Const: Other: Cachectic, chronically ill-appearing, frail, elderly HENMT: Other: Temporal wasting, head is normocephalic atraumatic, small amount of white debris to the tongue, upper and lower dentures in place, tacky mucous membranes, nasal cannula in place Eyes: Other: Pupils equal and reactive, no scleral icterus, positive conjunctival pallor Neck: Other: No JVD, supple, nontender Resp: Other: Tachypnea, markedly decreased breath sounds bilaterally, accessory muscle use, with anterior wheezing Cardio: Ot
[2023-11-03] MEDS: AZITHROMYCIN 250 MG TABLET 500 MG PO (20:41)
[2023-11-03] MEDS: DONEPEZIL HCL 10 MG TABLET PO (20:42)
[2023-11-04] VITALS (23 sets, daily range): BP systolic 127–146; BP diastolic 45–75; PULSE 57–106; RESP 12–20; TEMP 35.7–36.6; O2SAT 91–100
[2023-11-04] MEDS: ALBUTEROL SULFATE NEB 2.5 MG/3 ML INH 5 MG INHALATION ×4 (01:18→21:15)
[2023-11-04] MEDS: IPRATROPIUM BR 0.02% INH SOLN 0.5 MG/2.5 ML VIAL INHALATION ×4 (01:18→21:15)
[2023-11-04 05:30] LABS: Basophils Absolute Auto 0.1 K/mm3 (0.0-0.1); Eosinophils Absolute Auto 0.2 K/mm3 (0-0.3); Eosinophils Percent Auto 3.3 % (0-4.4); Hematocrit 25.1 % (42.0-52.0); Hemoglobin 7.4 g/dL (14.0-18.0); Immature Granulocyte Absolute 0.05 K/mm3 (0.00-0.031); Immature Granulocyte Percent A 0.7 % (0-0.5); Lymphocytes Absolute Auto 1.62 K/mm3 (0.9-3.2); Lymphocytes Percent Auto 22.4 % (18.3-44.2); Mean Corpuscular HGB Conc 29.5 g/dl (32-36); Mean Corpuscular Hemoglobin 30.7 pg (26-34); Mean Corpuscular Volume 104.1 fl (80-100); Monocytes Absolute Auto 1.1 K/mm3 (0.1-0.6); Monocytes Percent Auto 15.1 % (2.6-8.5); Neutrophils Absolute Auto 4.2 K/mm3 (1.3-6.7); Neutrophils Percent Auto 57.5 % (45.5-73.1); Platelet Count Result 595 k/mm3 (150-375); Red Blood Count 2.41 M/mm3 (4.6-6.20); White Blood Count 7.2 K/mm3 (4.5-10.0)
[2023-11-04 05:37] LABS: Anion Gap 4 mmol/L (8-16); Blood Urea Nitrogen 12 mg/dL (9-20); Calcium 9.3 mg/dL (8.4-10.2); Carbon Dioxide 27 mmol/L (22-30); Chloride 107 mmol/L (98-107); Estimated CRCL calculation 66 ml/min; Estimated Glomerular Filt Rate > 60; Glucose 86 mg/dL (65-110); Potassium 3.7 mmol/L (3.4-5.0); Sodium 138 mmol/L (137-145)
[2023-11-04 06:01] LABS: Hypochromasia 2+ (NORMAL); Platelet Estimate Increased (Adequate)
[2023-11-04 06:02] LABS: Anisocytosis 2+ (NORMAL); Schistocytes None Seen (NORMAL); Target Cells 1+ (NORMAL)
[2023-11-04] MEDS: SODIUM CHLORIDE 0.9% IV 1,000 ML 100 ML IV CONT (06:50)
--- NOTE | 2023-11-04 08:41 | PM.IMPN ---
Progress Note: A&P Assessment and Plan (1) Pneumonia: Qualifiers: Laterality: right Lung location: middle lobe of lung Pneumonia type: due to unspecified organism Qualified Code(s): J18.9 - Pneumonia, unspecified organism Code(s): J18.9 - Pneumonia, unspecified organism Status: Acute Assessment and Plan: rocephin and azithromycin CT ordered Procal negative Leukocytosis of 17 on admission. 11/04: CT chest shows moderate emphysema and small pleural effusion. Will restart PO lasix today as blood pressures are stable. Continue with antibiotics, likely can de-escalate to PO agents tomorrow. WBC 11.1 today. (2) Acute hypoxic respiratory failure: Code(s): J96.01 - Acute respiratory failure with hypoxia Status: Acute Assessment and Plan: 2L O2 CT chest ordered 11/04: 100% on 2 L NC this morning. Decreased to 1 L NC. Hopefully can d/c oxygen today. (3) Profound anemia: Code(s): D64.9 - Anemia, unspecified Status: Acute Assessment and Plan: Hemoglobin 10.1 on admission, now down trending to 7.4 reports black tarry stool on Friday. Ordered occult stool Started on PPI BID Hold xarelto for now Anemia panel ordered GI consult for possible endoscopy, rec's appreciated. (4) Sepsis: Qualifiers: Acute respiratory failure type: with hypoxia Sepsis acute organ dysfunction status: with acute organ dysfunction Sepsis type: sepsis due to unspecified organism Severe sepsis acute organ dysfunction type: acute respiratory failure Severe sepsis shock status: without septic shock Qualified Code(s): A41.9 - Sepsis, unspecified organism; R65.20 - Severe sepsis without septic shock; J96.01 - Acute respiratory failure with hypoxia Code(s): A41.9 - Sepsis, unspecified organism Status: Acute Assessment and Plan: meets sepsis criteria with tachycardia, tachypnea and leukocytosis in the setting of pneumonia. blood cultures pending. IV fluid resuscitation and is on antibiotic therapy with Rocephin and azithromycin UA culture pending 11/04: Urine culture negative. Blood cultures with NGTD. (5) COPD (chronic obstructive pulmonary disease): Qualifiers: COPD type: COPD with acute lower respiratory infection Qualified Code(s): J44.0 - Chronic obstructive pulmonary disease with (acute) lower respiratory infection Code(s): J44.9 - Chronic obstructive pulmonary disease, unspecified Status: Chronic Assessment and Plan: continue scheduled nebulizer treatments 11/04: No wheezing. Lungs diminished but clear. Continue home inhalers and scheduled nebs Q 6 hours. (6) CHF (congestive heart failure): Qualifiers: Heart failure chronicity: chronic Heart failure type: right-sided Qualified Code(s): I50.812 - Chronic right heart failure Code(s): I50.9 - Heart failure, unspecified Status: Chronic Assessment and Plan: strict I&O, daily weights holding home diuretic therapy for now continue to monitor continue patient's home Coreg, baby aspirin, LEOBARDO-inhibitor and statin 11/04: Does not appear fluid overloaded. Lung sounds diminished but clear. BP stable. Will go ahead and resume his PO Lasix today. Small effusion on CT chest. (7) Protein calorie malnutrition: Qualifiers: Protein-calorie malnutrition severity: unspecified severity Qualified Code(s): E46 - Unspecified protein-calorie malnutrition Code(s): E46 - Unspecified protein-calorie malnutrition Status: Chronic Assessment and Plan: dietary consulted, supplements ordered (8) Elevated troponin: Code(s): R77.8 - Other specified abnormalities of plasma proteins Status: Acute Assessment and Plan: Elevated on admission 0.056->0.077->0.096 repeating trop today no chest pain EKG with no concerns for T wave changes Plan Feeding: heart healthy with suppl
[2023-11-04] MEDS: CHOLECALCIFEROL 1,000 UNITS TABLET 5000 UNITS PO (08:47)
[2023-11-04] MEDS: carvediloL 6.25 MG TABLET PO ×2 (08:48→20:42)
[2023-11-04] MEDS: ASPIRIN 81 MG ENTERIC TABLET PO (08:48)
[2023-11-04] MEDS: SIMVASTATIN 20 MG TABLET 40 MG PO (08:48)
[2023-11-04] MEDS: ramipriL 5 MG CAPSULE PO (08:48)
[2023-11-04] MEDS: RIVAROXABAN 2.5 MG TABLET PO (08:48)
[2023-11-04] MEDS: FERROUS SULFATE 325 MG TABLET DR BY MOUTH ×2 (08:48→16:48)
[2023-11-04 09:21] LABS: NT Pro B Type Natriuretic Pept 1890 pg/mL (19.9-100)
[2023-11-04] MEDS: FLUTICASONE/UMECLIDIN/VILANTER 100-62.5-25 MCG ELLIPTA 1 PUFF INHALATION (09:36)
[2023-11-04 09:57] LABS: Troponin I 0.026 ng/mL (0.000-0.034)
--- NOTE | 2023-11-04 12:53 | P.CDI_ITS ---
Severe malnutrition CDI Query Clarification Request BMI 16.9 Nutritional Diagnostic Statement Severe protein calorie malnutrition related to inadequate energy intake as evidenced by low BMI 16.9, noted NFPE findings for muscle wasting and subcutaneous fat loss. Please refer to the comprehensive nutrition assessment for further information. Please clarify severity of protein calorie malnutrition if known: * Mild * Moderate * Severe * Other/Unspecified
[2023-11-04] MEDS: PANTOPRAZOLE 40 MG TABLET PO ×2 (12:58→20:42)
--- NOTE | 2023-11-04 14:57 | WPDGICN ---
Assessment and Plan Assessment and plan (1) Acute on chronic anemia: Code(s): D64.9 - Anemia, unspecified Status: Acute Assessment and Plan: anai is on hold now will repeat EGD tomorrow, no need to do colonoscopy as he had one few months ago anemia could be multifactorial (2) Protein calorie malnutrition: Qualifiers: Protein-calorie malnutrition severity: unspecified severity Qualified Code(s): E46 - Unspecified protein-calorie malnutrition Code(s): E46 - Unspecified protein-calorie malnutrition Status: Chronic Assessment and Plan: poor oral intake and weight loss noted nutrition support (3) Sepsis: Qualifiers: Sepsis type: sepsis due to unspecified organism Sepsis acute organ dysfunction status: with acute organ dysfunction Severe sepsis acute organ dysfunction type: acute respiratory failure Acute respiratory failure type: with hypoxia Severe sepsis shock status: without septic shock Qualified Code(s): A41.9 - Sepsis, unspecified organism; R65.20 - Severe sepsis without septic shock; J96.01 - Acute respiratory failure with hypoxia Code(s): A41.9 - Sepsis, unspecified organism Status: Acute Assessment and Plan: on arrival and improved, on antibiotics had pneumonia (4) Pneumonia: Qualifiers: Laterality: right Lung location: middle lobe of lung Pneumonia type: due to unspecified organism Qualified Code(s): J18.9 - Pneumonia, unspecified organism Code(s): J18.9 - Pneumonia, unspecified organism Status: Acute (5) Acute hypoxic respiratory failure: Code(s): J96.01 - Acute respiratory failure with hypoxia Status: Acute Assessment and Plan: improved (6) CHF (congestive heart failure): Qualifiers: Heart failure type: right-sided Heart failure chronicity: chronic Qualified Code(s): I50.812 - Chronic right heart failure Code(s): I50.9 - Heart failure, unspecified Status: Chronic (7) History of candidiasis: Code(s): Z86.19 - Personal history of other infectious and parasitic diseases Status: Acute Assessment and Plan: will reassess with egd again hiv negative (8) Acute exacerbation of chronic obstructive pulmonary disease: Code(s): J44.1 - Chronic obstructive pulmonary disease with (acute) exacerbation Status: Acute GI Consult Note Consult date/time: 11/04/23 14:57 Reason for consult: acute on chronic anemia. HPI: Nikita Meyers is a 73 year old male with past medical history of COPD, dementia, multivessel coronary artery disease, paroxysmal atrial fibrillation on xarelto, COPD, smoker, chronic anemia with weight loss for which I performed EGD and colonoscopy 05/2023, found ruben esophagitis (confirmed with bx and treated with fluconazole), no h pylori, no celiac. Had TA colon polyps removed but nothing else to explain anemia, HIV negative. He is poor historian.? He was admitted to the hospital this time with 3-4 days of increased shortness of breath and cough with phlegm.? No fever but had some chills.? On arrival to ER was tachycardic and had elevated white count and imaging was consistent with pneumonia.? Viral panel was negative for COVID flu and RSV.? Hgb again low 8.9 down to 7.4 (baseline 9's). No obvious overt gib. Xarelto is on hold. Review of Systems Constitutional: Constitutional: Reports chills and Reports fatigue Eyes: Eyes: Denies blurry vision ENT: Reports Normal hearing present Cardiovascular: Cardiovascular: Denies chest pain Respiratory: Respiratory: Reports cough and Reports dyspnea on exertion Gastrointestinal: Gastrointestinal: Denies abdominal pain Genitourinary: Genitourinary: Denies dysuria Musculoskeletal: Musculoskeletal: Denies arthralgias Integumentary/Breasts: Skin/Breast: Denies rash Neurologic: Denies Abnormal speech present Psychiatric: Psychiatric: Denies behavioral changes PMFS
--- NOTE | 2023-11-04 19:26 | PC.NURSE ---
This patient, Nikita Meyers, was transferred to [251 ] on 11/04/23 at 1926. Personal belongings sent with patient. Report given to [WEI Koo @ 1922 ]. Appropriate documentation sent with patient.
--- NOTE | 2023-11-04 20:01 | PC.NURSE ---
This patient, Nikita Meyers, was transferred to [facility] in [place] on 11/04/23 at 2001. Personal belongings sent with patient. Report given to March. Appropriate documentation sent with patient.
[2023-11-04] MEDS: AZITHROMYCIN 250 MG TABLET 500 MG PO (20:42)
[2023-11-04] MEDS: DONEPEZIL HCL 10 MG TABLET PO (20:42)
[2023-11-05] VITALS (28 sets, daily range): BP systolic 118–164; BP diastolic 49–87; PULSE 57–76; RESP 16–23; TEMP 36.1–36.8; O2SAT 94–100
[2023-11-05] MEDS: IPRATROPIUM BR 0.02% INH SOLN 0.5 MG/2.5 ML VIAL INHALATION ×3 (02:51→22:01)
[2023-11-05] MEDS: ALBUTEROL SULFATE NEB 2.5 MG/3 ML INH 5 MG INHALATION ×3 (02:51→22:01)
[2023-11-05 04:37] LABS: Basophils Absolute Auto 0.1 K/mm3 (0.0-0.1); Basophils Percent Auto 0.7 % (0.2-1.2); Eosinophils Absolute Auto 0.2 K/mm3 (0-0.3); Eosinophils Percent Auto 2.5 % (0-4.4); Hematocrit 22.6 % (42.0-52.0); Immature Granulocyte Absolute 0.03 K/mm3 (0.00-0.031); Immature Granulocyte Percent A 0.4 % (0-0.5); Lymphocytes Absolute Auto 1.53 K/mm3 (0.9-3.2); Lymphocytes Percent Auto 19.1 % (18.3-44.2); Mean Corpuscular HGB Conc 30.5 g/dl (32-36); Mean Corpuscular Hemoglobin 30.9 pg (26-34); Mean Corpuscular Volume 101.3 fl (80-100); Mean Platelet Volume 8.8 fl (7.4-10.4); Monocytes Absolute Auto 1.1 K/mm3 (0.1-0.6); Monocytes Percent Auto 14.1 % (2.6-8.5); Neutrophils Absolute Auto 5.1 K/mm3 (1.3-6.7); Neutrophils Percent Auto 63.2 % (45.5-73.1); Platelet Count Result 565 k/mm3 (150-375); Red Blood Count 2.23 M/mm3 (4.6-6.20); Red Cell Distribution Width 13.8 % (11.5-14.5)
[2023-11-05 04:41] LABS: Hemoglobin 6.9 g/dL (14.0-18.0)
[2023-11-05 05:02] LABS: Alanine Aminotransferase 10 U/L (6-50); Albumin Level 2.7 g/dL (3.5-5.1); Alkaline Phosphatase 92 U/L (38-126); Anion Gap 4 mmol/L (8-16); Aspartate Amino Transferase 19 U/L (17-59); Bilirubin,Total 0.3 mg/dL (0.2-1.3); Blood Urea Nitrogen 10 mg/dL (9-20); Calcium 8.9 mg/dL (8.4-10.2); Carbon Dioxide 26 mmol/L (22-30); Chloride 104 mmol/L (98-107); Estimated CRCL calculation 58 ml/min; Estimated Glomerular Filt Rate > 60; Glucose 82 mg/dL (65-110); Iron 25 ug/dL (49-181); Potassium 3.3 mmol/L (3.4-5.0); Sodium 134 mmol/L (137-145)
[2023-11-05 05:11] LABS: Percent Iron Saturation 10 % (20-50)
[2023-11-05] MEDS: carvediloL 6.25 MG TABLET PO ×2 (08:08→20:20)
[2023-11-05] MEDS: PANTOPRAZOLE 40 MG TABLET PO ×2 (08:09→20:20)
[2023-11-05 08:29] LABS: Folic Acid 9.4 ng/mL (2.76->20)
[2023-11-05] MEDS: SODIUM CHLORIDE 0.9% IV 250 ML 30 ML IV CONT (09:28)
[2023-11-05] MEDS: FLUTICASONE/UMECLIDIN/VILANTER 100-62.5-25 MCG ELLIPTA 1 PUFF INHALATION (10:07)
--- NOTE | 2023-11-05 11:01 | PCPTNOTE ---
Attempted PT evaluation, pt getting blood at this time then going for a test after. Will follow.
--- NOTE | 2023-11-05 13:32 | PC.NURSE ---
Verbal report given to [facility]. To GI Lab via stretcher. Voiding without difficulty. family at bedside.
[2023-11-05] MEDS: LACTATED RINGERS 1,000 ML 150 ML IV CONT (14:20)
--- NOTE | 2023-11-05 15:01 | PCOTNOTE ---
The patient treatment was not able to be completed. Patient out of the room. Will plan to continue treatment per plan of care.
--- NOTE | 2023-11-05 15:11 | P.PNIM_ITS ---
Progress Note: A&P Assessment and Plan (1) Pneumonia: Qualifiers: Laterality: right Lung location: middle lobe of lung Pneumonia type: due to unspecified organism Qualified Code(s): J18.9 - Pneumonia, unspecified organism Code(s): J18.9 - Pneumonia, unspecified organism Status: Acute Assessment and Plan: * Continue Rocephin and azithromycin * CT chest shows moderate emphysema and small pleural effusion. Lasix resumed. * Procal negative * Leukocytosis of 17 on admission, WBC 8 this am * work to wean off oxygen (2) Acute hypoxic respiratory failure: Code(s): J96.01 - Acute respiratory failure with hypoxia Status: Acute Assessment and Plan: * 2L O2, work to wean (3) Profound anemia: Code(s): D64.9 - Anemia, unspecified Status: Acute Assessment and Plan: Hemoglobin 10.1 on admission, now down trending to 6.9 this am * will transfuse 2 units PRBC, H&H repeat this evening * reports black tarry stool on Friday. * Ordered occult stool * Started on PPI BID * Hold xarelto for now * iron panel: iron 25, TIBC 259, iron sat 10%. May IV iron tomorrow after repeat labs * GI consult - EGD done this afternoon (4) Sepsis: Qualifiers: Sepsis type: sepsis due to unspecified organism Sepsis acute organ dysfunction status: with acute organ dysfunction Severe sepsis acute organ dysfunction type: acute respiratory failure Acute respiratory failure type: with hypoxia Severe sepsis shock status: without septic shock Qualified Code(s): A41.9 - Sepsis, unspecified organism; R65.20 - Severe sepsis without se ptic shock; J96.01 - Acute respiratory failure with hypoxia Code(s): A41.9 - Sepsis, unspecified organism Status: Acute Assessment and Plan: * meets sepsis criteria with tachycardia, tachypnea and leukocytosis in the setting of pneumonia. * blood cultures pending. * IV fluid resuscitation and is on antibiotic therapy with Rocephin and azithromycin * UA culture negative (5) COPD (chronic obstructive pulmonary disease): Qualifiers: COPD type: COPD with acute lower respiratory infection Qualified Code(s): J44.0 - Chronic obstructive pulmonary disease with (acute) lower respiratory infection Code(s): J44.9 - Chronic obstructive pulmonary disease, unspecified Status: Chronic Assessment and Plan: * continue scheduled nebulizer treatments (6) CHF (congestive heart failure): Qualifiers: Heart failure type: right-sided Heart failure chronicity: chronic Qualified Code(s): I50.812 - Chronic right heart failure Code(s): I50.9 - Heart failure, unspecified Status: Chronic Assessment and Plan: * strict I&O, daily weights * Lasix resumed * continue to monitor * continue patient's home Coreg, baby aspirin, LEOBARDO-inhibitor and statin (7) Protein calorie malnutrition: Qualifiers: Protein-calorie malnutrition severity: unspecified severity Qualified Code(s): E46 - Unspecified protein-calorie malnutrition Code(s): E46 - Unspecified protein-calorie malnutrition Status: Chronic Assessment and Plan: * dietary consulted, supplements ordered (8) Elevated troponin: Code(s): R77.8 - Other specified abnormalities of plasma proteins Status: Acute Assessment and Plan: Elevated on admission 0.056->0.077->0.096 * repeating trop today * no chest pain * EKG with no concerns for T wave changes Plan Feeding: heart healthy with supp
--- NOTE | 2023-11-05 15:11 | PM.IMPN ---
Progress Note: A&P Assessment and Plan (1) Pneumonia: Qualifiers: Laterality: right Lung location: middle lobe of lung Pneumonia type: due to unspecified organism Qualified Code(s): J18.9 - Pneumonia, unspecified organism Code(s): J18.9 - Pneumonia, unspecified organism Status: Acute Assessment and Plan: Continue Rocephin and azithromycin CT chest shows moderate emphysema and small pleural effusion. Lasix resumed. Procal negative Leukocytosis of 17 on admission, WBC 8 this am work to wean off oxygen (2) Acute hypoxic respiratory failure: Code(s): J96.01 - Acute respiratory failure with hypoxia Status: Acute Assessment and Plan: 2L O2, work to wean (3) Profound anemia: Code(s): D64.9 - Anemia, unspecified Status: Acute Assessment and Plan: Hemoglobin 10.1 on admission, now down trending to 6.9 this am will transfuse 2 units PRBC, H&H repeat this evening reports black tarry stool on Friday. Ordered occult stool Started on PPI BID Hold xarelto for now iron panel: iron 25, TIBC 259, iron sat 10%. May IV iron tomorrow after repeat labs GI consult - EGD done this afternoon (4) Sepsis: Qualifiers: Sepsis type: sepsis due to unspecified organism Sepsis acute organ dysfunction status: with acute organ dysfunction Severe sepsis acute organ dysfunction type: acute respiratory failure Acute respiratory failure type: with hypoxia Severe sepsis shock status: without septic shock Qualified Code(s): A41.9 - Sepsis, unspecified organism; R65.20 - Severe sepsis without septic shock; J96.01 - Acute respiratory failure with hypoxia Code(s): A41.9 - Sepsis, unspecified organism Status: Acute Assessment and Plan: meets sepsis criteria with tachycardia, tachypnea and leukocytosis in the setting of pneumonia. blood cultures pending. IV fluid resuscitation and is on antibiotic therapy with Rocephin and azithromycin UA culture negative (5) COPD (chronic obstructive pulmonary disease): Qualifiers: COPD type: COPD with acute lower respiratory infection Qualified Code(s): J44.0 - Chronic obstructive pulmonary disease with (acute) lower respiratory infection Code(s): J44.9 - Chronic obstructive pulmonary disease, unspecified Status: Chronic Assessment and Plan: continue scheduled nebulizer treatments (6) CHF (congestive heart failure): Qualifiers: Heart failure type: right-sided Heart failure chronicity: chronic Qualified Code(s): I50.812 - Chronic right heart failure Code(s): I50.9 - Heart failure, unspecified Status: Chronic Assessment and Plan: strict I&O, daily weights Lasix resumed continue to monitor continue patient's home Coreg, baby aspirin, LEOBARDO-inhibitor and statin (7) Protein calorie malnutrition: Qualifiers: Protein-calorie malnutrition severity: unspecified severity Qualified Code(s): E46 - Unspecified protein-calorie malnutrition Code(s): E46 - Unspecified protein-calorie malnutrition Status: Chronic Assessment and Plan: dietary consulted, supplements ordered (8) Elevated troponin: Code(s): R77.8 - Other specified abnormalities of plasma proteins Status: Acute Assessment and Plan: Elevated on admission 0.056->0.077->0.096 repeating trop today no chest pain EKG with no concerns for T wave changes Plan Feeding: heart healthy with supplements Analgesia:Tylenol Thromboembolic prophylaxis: SCD--xarelto on hold for down trending H/H Ulcer prophylaxis: PPI BID Glycemic control: NA Bowel regimen: miralax prn Lines: PIV Antibiotics: rocephin and azithromycin Disposition: transfer out of IMU today Subjective Date/time seen: 11/05/23 15:11 Interval history: Patient seen in bed on 2 L NC and does not appear in acute distress. His is a
--- NOTE | 2023-11-05 15:25 | PC.NURSE ---
Returned from GI Lab via stretcher. Family at bedside. Blood infusing in left forearm IV.
[2023-11-05] MEDS: FERROUS SULFATE 325 MG TABLET DR BY MOUTH (16:37)
[2023-11-05 18:25] LABS: Hematocrit 31.7 % (42.0-52.0); Hemoglobin 10.4 g/dL (14.0-18.0)
[2023-11-05] MEDS: DONEPEZIL HCL 10 MG TABLET PO (20:20)
[2023-11-05] MEDS: AZITHROMYCIN 250 MG TABLET 500 MG PO (20:20)
[2023-11-06] VITALS (13 sets, daily range): BP systolic 112–116; BP diastolic 57–59; PULSE 68–88; RESP 14–18; TEMP 36.4–36.6; O2SAT 96–99
[2023-11-06 05:52] LABS: Basophils Absolute Auto 0.1 K/mm3 (0.0-0.1); Basophils Percent Auto 0.5 % (0.2-1.2); Eosinophils Absolute Auto 0.2 K/mm3 (0-0.3); Eosinophils Percent Auto 1.8 % (0-4.4); Hematocrit 31.6 % (42.0-52.0); Hemoglobin 10.5 g/dL (14.0-18.0); Immature Granulocyte Absolute 0.06 K/mm3 (0.00-0.031); Immature Granulocyte Percent A 0.6 % (0-0.5); Lymphocytes Absolute Auto 1.34 K/mm3 (0.9-3.2); Lymphocytes Percent Auto 14.4 % (18.3-44.2); Mean Corpuscular HGB Conc 33.2 g/dl (32-36); Mean Corpuscular Hemoglobin 30.8 pg (26-34); Mean Corpuscular Volume 92.7 fl (80-100); Mean Platelet Volume 8.6 fl (7.4-10.4); Monocytes Absolute Auto 1.3 K/mm3 (0.1-0.6); Monocytes Percent Auto 13.6 % (2.6-8.5); Neutrophils Absolute Auto 6.4 K/mm3 (1.3-6.7); Neutrophils Percent Auto 69.1 % (45.5-73.1); Platelet Count Result 508 k/mm3 (150-375); Red Blood Count 3.41 M/mm3 (4.6-6.20); Red Cell Distribution Width 16.3 % (11.5-14.5); White Blood Count 9.3 K/mm3 (4.5-10.0)
[2023-11-06 05:57] LABS: Alanine Aminotransferase 10 U/L (6-50); Albumin Level 2.9 g/dL (3.5-5.1); Alkaline Phosphatase 99 U/L (38-126); Anion Gap 3 mmol/L (8-16); Aspartate Amino Transferase 31 U/L (17-59); Bilirubin,Total 0.7 mg/dL (0.2-1.3); Blood Urea Nitrogen 12 mg/dL (9-20); Calcium 9.2 mg/dL (8.4-10.2); Carbon Dioxide 26 mmol/L (22-30); Chloride 106 mmol/L (98-107); Estimated CRCL calculation 52 ml/min; Estimated Glomerular Filt Rate > 60; Glucose 89 mg/dL (65-110); Potassium 3.6 mmol/L (3.4-5.0); Sodium 135 mmol/L (137-145)
[2023-11-06] MEDS: IPRATROPIUM BR 0.02% INH SOLN 0.5 MG/2.5 ML VIAL INHALATION ×3 (08:25→21:52)
[2023-11-06] MEDS: ALBUTEROL SULFATE NEB 2.5 MG/3 ML INH 5 MG INHALATION ×3 (08:25→21:52)
[2023-11-06] MEDS: FLUTICASONE/UMECLIDIN/VILANTER 100-62.5-25 MCG ELLIPTA 1 PUFF INHALATION (08:25)
[2023-11-06] MEDS: ramipriL 5 MG CAPSULE PO (08:57)
[2023-11-06] MEDS: carvediloL 6.25 MG TABLET PO ×2 (08:58→21:27)
[2023-11-06] MEDS: FUROSEMIDE 20 MG TABLET PO (08:58)
[2023-11-06] MEDS: CHOLECALCIFEROL 1,000 UNITS TABLET 5000 UNITS PO (08:59)
[2023-11-06] MEDS: SIMVASTATIN 20 MG TABLET 40 MG PO (08:59)
[2023-11-06] MEDS: PANTOPRAZOLE 40 MG TABLET PO ×2 (08:59→21:27)
[2023-11-06] MEDS: FERROUS SULFATE 325 MG TABLET DR BY MOUTH ×2 (09:01→16:14)
[2023-11-06] MEDS: ASPIRIN 81 MG ENTERIC TABLET PO (09:01)
[2023-11-06 12:51] LABS: IFOB Positive Control Positive; Immunochemical Fecal Occult Bl Negative (N)
--- NOTE | 2023-11-06 12:59 | PC.NURSE ---
On 11/06/23, the student, [Ilia Freeman], provided care and completed [facility] documentation on this patient. I have reviewed the student's documentation and agree with the findings.
--- NOTE | 2023-11-06 13:51 | P.PNAN_ITS ---
Anes - Prog Note Post-Op Date/Time: 11/06/23 13:51 Vital Signs: Last Vital Signs Temp 36.4 C 11/05/23 20:32 Pulse 70 11/06/23 11:15 Resp 18 11/06/23 11:15 BP 134/52 L 11/05/23 20:32 Pulse Ox 97 11/06/23 11:15 O2 Del Method Room Air 11/06/23 11:15 O2 Flow Rate 2 11/05/23 15:04 Pain Score (VAS): 0 I/O: Intake & Output 11/05/23 11/06/23 11/06/23 23:59 07:59 15:59 Intake Total 960 360 Output Total 150 305 775 Balance 218 -663 -397 Laboratory Tests 11/06/23 05:34 11/06/23 05:34 11/05/23 11/05/23 11/06/23 04:23 18:15 05:34 WBC 9.3 RBC 3.41 L Hgb 10.4 L D 10.5 L Hct 31.7 L 31.6 L MCV 92.7 D MCH 30.8 MCHC 33.2 RDW 16.3 H Plt Count 508 H MPV 8.6 Immature Gran % (Auto) 0.6 H Neut % (Auto) 69.1 Lymph % (Auto) 14.4 L [place] % (Auto) 13.6 H Eos % (Auto) 1.8 Baso % (Auto) 0.5 Lymph # (Auto) 1.34 [place] # (Auto) 1.3 H Eos # (Auto) 0.2 Baso # (Auto) 0.1 Abs Immat Gran (auto) 0.06 H Absolute Neuts (auto) 6.4 Absolute Nucleated RBC 0.0 Nucleated RBC % 0.0 Sodium 135 L Potassium 3.6 Chloride 106 Carbon Dioxide 26 Anion Gap 3 L BUN 12 Creatinine 0.80 Estim Creat Clear Calc 52 Estimated GFR > 60 Glucose 89 Calcium 9.2 Total Bilirubin 0.7 AST 31 ALT 10 Alkaline Phosphatase 99 Total Protein 6.0 L Albumin 2.9 L Stl Occult Blood (IFOB) Crossmatch See Detail 11/06/23 12:21 WBC RBC Hgb Hct MCV MCH MCHC RDW Plt Count MPV Immature Gran % (Auto) Neut % (Auto) Lymph % (Auto) [place] % (Auto) Eos % (Auto) Baso % (Auto) Lymph # (Auto) [place] # (Auto) Eos # (Auto) Baso # (Auto) Abs Immat Gran (auto) Absolute Neuts (auto) Absolute Nucleated RBC Nucleated RBC % Sodium Potassium Chloride Carbon Dioxide Anion Gap BUN Creatinine Estim Creat Clear Calc Estimated GFR Glucose Calcium Total Bilirubin AST ALT Alkaline Phosphatase Total Protein Albumin Stl Occult Blood (IFOB) Negative Crossmatch Patient Feedback: Patient satisfied with anesthetic care.
--- NOTE | 2023-11-06 14:41 | WPDGIPROGNO ---
Progress Note: A&P Assessment and Plan (1) Acute on chronic anemia: Code(s): D64.9 - Anemia, unspecified Status: Acute Assessment and Plan: h/h responded to blood transfusion probably multifactorial but also had signs of recent bleeding with AVM in duodenum treated successfully yesterday with APC (2) AVM (arteriovenous malformation) of small bowel, acquired: Code(s): K55.20 - Angiodysplasia of colon without hemorrhage Status: Acute Assessment and Plan: treated with apc hold blood thinner for about 1 week (3) UGIB (upper gastrointestinal bleed): Code(s): K92.2 - Gastrointestinal hemorrhage, unspecified Status: Acute Assessment and Plan: no more signs of bleeding (4) Pneumonia: Qualifiers: Laterality: right Lung location: middle lobe of lung Pneumonia type: due to unspecified organism Qualified Code(s): J18.9 - Pneumonia, unspecified organism Code(s): J18.9 - Pneumonia, unspecified organism Status: Acute Assessment and Plan: on treatment (5) Protein calorie malnutrition: Qualifiers: Protein-calorie malnutrition severity: unspecified severity Qualified Code(s): E46 - Unspecified protein-calorie malnutrition Code(s): E46 - Unspecified protein-calorie malnutrition Status: Chronic Subjective Date/time seen: 11/06/23 14:41 Interval history: egd yesterday with AVM duodenum and stigmata of previous bleeding- treated with apc feeling about same which is generalized fatigue, no bleeding hgb up to 10 after blood transfusion, no signs of gib Review of Systems Review of Systems: All systems reviewed & are unremarkable except as noted in HPI and below Exam Const: General: comfortable and no acute distress Other: frail, chronically ill appearing HENMT: Face/Nose/Sinus: Normal nares present Eyes: General: appearance normal, both eyes and all related structures Neck: Neck: supple Resp: Auscultation: rhonchi and no wheezes Cardio: Rate: regular rate Rhythm: regular rhythm GI: Inspection: non-distended GI Palp: Yes Soft to palpation and No Tenderness to palpation present (GI) Auscultation: normal bowel sounds Skin: General skin exam: normal color Neuro: Speech: normal speech Motor exam (neuro): 5/5 motor strength present throughout Extrem: General: normal to inspection Psych: Other: flat affect Objective Data Vital Signs Vital Signs: Vital Signs - 24 hr 11/05/23 14:55 11/05/23 15:04 11/05/23 15:00 Temperature 97.3 F L Pulse Rate 62 62 62 Respiratory Rate 23 H 22 H 20 Blood Pressure 118/60 141/73 H 141/73 H Pulse Oximetry 100 100 100 Oxygen Delivery Nasal Cannula Nasal Cannula Oxygen Flow Rate 2 2 11/05/23 16:00 11/05/23 16:00 11/05/23 16:00 Temperature 97.5 F L 97.5 F L 97.5 F L Pulse Rate 63 63 63 Respiratory Rate 20 20 20 Blood Pressure 140/60 140/60 140/60 Pulse Oximetry 98 98 98 Oxygen Delivery Oxygen Flow Rate 11/05/23 15:25 11/05/23 15:25 11/05/23 20:20 Temperature 97.8 F Pulse Rate 63 60 76 Respiratory Rate 20 20 Blood Pressure 136/87 Pulse Oximetry 98 100 Oxygen Delivery Room Air Oxygen Flow Rate 11/05/23 20:32 11/05/23 20:00 11/05/23 22:03 Temperature 97.6 F Pulse Rate 75 75 68 Respiratory Rate 18 18 18 Blood Pressure 134/52 L Pulse Oximetry 99 99 Oxygen Delivery Room Air Oxygen Flow Rate 11/05/23 22:15 11/06/23 08:25 11/06/23 08:31 Temperature Pulse Rate 69 68 68 Respiratory Rate 18 18 18 Blood Pressure Pulse Oximetry 97 Oxygen Delivery Room Air Oxygen Flow Rate 11/06/23 08:51 11/06/23 08:58 11/06/23 09:01 Temperature Pulse Rate 70 70 Respiratory Rate 18 18 Blood Pressure Pulse Oximetry 97 Oxygen Delivery Room Air Oxygen Flow Rate 11/06/23 10:38 11/06/23 11:15 11/06/23 14:05 Temperature Pulse Rate 70 75 Respiratory Rate 18 18 Blood Pressure
--- NOTE | 2023-11-06 15:33 | P.PNIM_ITS ---
Progress Note: A&P Assessment and Plan (1) Pneumonia: Qualifiers: Laterality: right Lung location: middle lobe of lung Pneumonia type: due to unspecified organism Qualified Code(s): J18.9 - Pneumonia, unspecified organism Code(s): J18.9 - Pneumonia, unspecified organism Status: Acute Assessment and Plan: * Transition to PO today * CT chest shows moderate emphysema and small pleural effusion. Lasix resumed. * Procal negative * Leukocytosis of 17 on admission, WBC remained stable * now on room air (2) Acute hypoxic respiratory failure: Code(s): J96.01 - Acute respiratory failure with hypoxia Status: Resolved (3) Profound anemia: Code(s): D64.9 - Anemia, unspecified Status: Acute Assessment and Plan: * s/p 2 units PRBC, H&H rebounded to 10.5/31.6 from 6.9 prior * reports black tarry stool on Friday. * occult stool negative * Started on PPI BID * Hold xarelto for additional 1 week * iron panel: iron 25, TIBC 259, iron sat 10%. on oral supplementation (4) Sepsis: Qualifiers: Sepsis type: sepsis due to unspecified organism Sepsis acute organ dysfunction status: with acute organ dysfunction Severe sepsis acute organ dysfunction type: acute respiratory failure Acute respiratory failure type: with hypoxia Severe sepsis shock status: without septic shock Qualified Code(s): A41.9 - Sepsis, unspecified organism; R65.20 - Severe sepsis without septic shock; J96.01 - Acute respiratory failure with hypoxia Code(s): A41.9 - Sepsis, unspecified organism Status: Acute Assessment and Plan: * meets sepsis criteria with tachycardia, tachypnea and leukocytosis in the setting of pneumonia. * blood cultures pending * transition to PO AB today * UA culture negative (5) COPD (chronic obstructive pulmonary disease): Qualifiers: COPD type: COPD with acute lower respiratory infection Qualified Code(s): J44.0 - Chronic obstructive pulmonary disease with (acute) lower respiratory infection Code(s): J44.9 - Chronic obstructive pulmonary disease, unspecified Status: Chronic Assessment and Plan: * continue scheduled nebulizer treatments (6) CHF (congestive heart failure): Qualifiers: Heart failure type: right-sided Heart failure chronicity: chronic Qualified Code(s): I50.812 - Chronic right heart failure Code(s): I50.9 - Heart failure, unspecified Status: Chronic Assessment and Plan: * strict I&O, daily weights * Lasix resumed * continue to monitor * continue patient's home Coreg, baby aspirin, LEOBARDO-inhibitor and statin (7) Protein calorie malnutrition: Qualifiers: Protein-calorie malnutrition severity: unspecified severity Qualified Code(s): E46 - Unspecified protein-calorie malnutrition Code(s): E46 - Unspecified protein-calorie malnutrition Status: Chronic Assessment and Plan: * dietary consulted, supplements ordered (8) Elevated troponin: Code(s): R77.8 - Other specified abnormalities of plasma proteins Status: Acute Assessment and Plan: Elevated on admission 0.056->0.077->0.096 * repeating trop today * no chest pain * EKG with no concerns for T wave changes Plan Feeding: heart healthy with supplements Analgesia:Tylenol Thromboembolic prophylaxis: SCD--xarelto on hold for down trending H/H Ulcer prophylaxis: PPI BID Glycemic control: NA Bowel regimen: miralax prn Lines: PIV Antibiotics: Augmentin, Lucy
--- NOTE | 2023-11-06 15:33 | PM.IMPN ---
Progress Note: A&P Assessment and Plan (1) Pneumonia: Qualifiers: Laterality: right Lung location: middle lobe of lung Pneumonia type: due to unspecified organism Qualified Code(s): J18.9 - Pneumonia, unspecified organism Code(s): J18.9 - Pneumonia, unspecified organism Status: Acute Assessment and Plan: Transition to PO today CT chest shows moderate emphysema and small pleural effusion. Lasix resumed. Procal negative Leukocytosis of 17 on admission, WBC remained stable now on room air (2) Acute hypoxic respiratory failure: Code(s): J96.01 - Acute respiratory failure with hypoxia Status: Resolved (3) Profound anemia: Code(s): D64.9 - Anemia, unspecified Status: Acute Assessment and Plan: s/p 2 units PRBC, H&H rebounded to 10.5/31.6 from 6.9 prior reports black tarry stool on Friday. occult stool negative Started on PPI BID Hold xarelto for additional 1 week iron panel: iron 25, TIBC 259, iron sat 10%. on oral supplementation (4) Sepsis: Qualifiers: Sepsis type: sepsis due to unspecified organism Sepsis acute organ dysfunction status: with acute organ dysfunction Severe sepsis acute organ dysfunction type: acute respiratory failure Acute respiratory failure type: with hypoxia Severe sepsis shock status: without septic shock Qualified Code(s): A41.9 - Sepsis, unspecified organism; R65.20 - Severe sepsis without septic shock; J96.01 - Acute respiratory failure with hypoxia Code(s): A41.9 - Sepsis, unspecified organism Status: Acute Assessment and Plan: meets sepsis criteria with tachycardia, tachypnea and leukocytosis in the setting of pneumonia. blood cultures pending transition to PO AB today UA culture negative (5) COPD (chronic obstructive pulmonary disease): Qualifiers: COPD type: COPD with acute lower respiratory infection Qualified Code(s): J44.0 - Chronic obstructive pulmonary disease with (acute) lower respiratory infection Code(s): J44.9 - Chronic obstructive pulmonary disease, unspecified Status: Chronic Assessment and Plan: continue scheduled nebulizer treatments (6) CHF (congestive heart failure): Qualifiers: Heart failure type: right-sided Heart failure chronicity: chronic Qualified Code(s): I50.812 - Chronic right heart failure Code(s): I50.9 - Heart failure, unspecified Status: Chronic Assessment and Plan: strict I&O, daily weights Lasix resumed continue to monitor continue patient's home Coreg, baby aspirin, LEOBARDO-inhibitor and statin (7) Protein calorie malnutrition: Qualifiers: Protein-calorie malnutrition severity: unspecified severity Qualified Code(s): E46 - Unspecified protein-calorie malnutrition Code(s): E46 - Unspecified protein-calorie malnutrition Status: Chronic Assessment and Plan: dietary consulted, supplements ordered (8) Elevated troponin: Code(s): R77.8 - Other specified abnormalities of plasma proteins Status: Acute Assessment and Plan: Elevated on admission 0.056->0.077->0.096 repeating trop today no chest pain EKG with no concerns for T wave changes Plan Feeding: heart healthy with supplements Analgesia:Tylenol Thromboembolic prophylaxis: SCD--xarelto on hold for down trending H/H Ulcer prophylaxis: PPI BID Glycemic control: NA Bowel regimen: miralax prn Lines: PIV Antibiotics: Augmentin, Azithro Disposition: plan to d/c tomorrow, will need medical assist Subjective Date/time seen: 11/06/23 15:34 Interval history: Patient seen in bed on now on room air and does not appear in acute distress. His is at the bedside this morning. EGD was done yesterday and showed hiatal hernia and duodenal AVM. He is reporting some mild right lower quadrant pain this morning. He has been passing some gas but no BM s
[2023-11-06] MEDS: AMOXICILLIN/CLAVULANATE K 875-125 MG TAB 1 TABLET PO (21:27)
[2023-11-06] MEDS: AZITHROMYCIN 250 MG TABLET 500 MG PO (21:27)
[2023-11-06] MEDS: DONEPEZIL HCL 10 MG TABLET PO (21:27)
[2023-11-07] VITALS (13 sets, daily range): BP systolic 90–169; BP diastolic 55–77; PULSE 74–100; RESP 16–20; TEMP 36.1–37.1; O2SAT 96–100
[2023-11-07 05:57] LABS: Basophils Absolute Auto 0.1 K/mm3 (0.0-0.1); Basophils Percent Auto 0.9 % (0.2-1.2); Eosinophils Absolute Auto 0.2 K/mm3 (0-0.3); Eosinophils Percent Auto 2.2 % (0-4.4); Hemoglobin 12.2 g/dL (14.0-18.0); Immature Granulocyte Absolute 0.07 K/mm3 (0.00-0.031); Immature Granulocyte Percent A 0.9 % (0-0.5); Lymphocytes Percent Auto 16.8 % (18.3-44.2); Mean Corpuscular HGB Conc 32.1 g/dl (32-36); Mean Corpuscular Hemoglobin 30.5 pg (26-34); Mean Platelet Volume 8.6 fl (7.4-10.4); Monocytes Absolute Auto 1.2 K/mm3 (0.1-0.6); Monocytes Percent Auto 15.7 % (2.6-8.5); Neutrophils Absolute Auto 4.9 K/mm3 (1.3-6.7); Neutrophils Percent Auto 63.5 % (45.5-73.1); Platelet Count Result 547 k/mm3 (150-375); Red Cell Distribution Width 16.3 % (11.5-14.5); White Blood Count 7.7 K/mm3 (4.5-10.0)
[2023-11-07 06:16] LABS: Alanine Aminotransferase 10 U/L (6-50); Albumin Level 3.3 g/dL (3.5-5.1); Alkaline Phosphatase 104 U/L (38-126); Anion Gap 5 mmol/L (8-16); Aspartate Amino Transferase 22 U/L (17-59); Bilirubin,Total 0.6 mg/dL (0.2-1.3); Blood Urea Nitrogen 12 mg/dL (9-20); Calcium 9.5 mg/dL (8.4-10.2); Carbon Dioxide 29 mmol/L (22-30); Chloride 103 mmol/L (98-107); Estimated CRCL calculation 51 ml/min; Estimated Glomerular Filt Rate > 60; Glucose 97 mg/dL (65-110); Potassium 3.6 mmol/L (3.4-5.0); Sodium 137 mmol/L (137-145)
[2023-11-07] MEDS: FLUTICASONE/UMECLIDIN/VILANTER 100-62.5-25 MCG ELLIPTA 1 PUFF INHALATION (09:57)
[2023-11-07] MEDS: IPRATROPIUM BR 0.02% INH SOLN 0.5 MG/2.5 ML VIAL INHALATION ×3 (09:57→20:26)
[2023-11-07] MEDS: ALBUTEROL SULFATE NEB 2.5 MG/3 ML INH 5 MG INHALATION ×3 (09:57→20:26)
[2023-11-07] MEDS: AMOXICILLIN/CLAVULANATE K 875-125 MG TAB 1 TABLET PO ×2 (10:17→22:11)
[2023-11-07] MEDS: FERROUS SULFATE 325 MG TABLET DR BY MOUTH ×2 (10:17→22:11)
[2023-11-07] MEDS: ASPIRIN 81 MG ENTERIC TABLET PO (10:17)
[2023-11-07] MEDS: carvediloL 6.25 MG TABLET PO ×2 (10:17→22:11)
[2023-11-07] MEDS: SIMVASTATIN 20 MG TABLET 40 MG PO (10:17)
[2023-11-07] MEDS: PANTOPRAZOLE 40 MG TABLET PO (10:17)
[2023-11-07] MEDS: FUROSEMIDE 20 MG TABLET PO (10:17)
[2023-11-07] MEDS: ramipriL 5 MG CAPSULE PO (10:18)
[2023-11-07] MEDS: CHOLECALCIFEROL 1,000 UNITS TABLET 5000 UNITS PO (10:18)
[2023-11-07] MEDS: ACETAMINOPHEN 325 MG TABLET PO (11:25)
[2023-11-07] MEDS: SODIUM CHLORIDE 0.9% IV 250 ML 999 ML IV CONT (13:20)
--- NOTE | 2023-11-07 13:41 | ECG_ITS ---
Measurements Intervals Ackerman Rate: 72 P: -39 AL: 175 QRS: 70 QRSD: 79 T: 91 QT: 399 QTc: 437 Interpretive Statements SINUS RHYTHM INDETERMINATE AXIS Electronically Signed On 11-08-2023 13:07:21 [employer]ACHINE PACK[employer] by Pieter Menjivar M.D.
--- NOTE | 2023-11-07 14:03 | P.PNIM_ITS ---
Progress Note: A&P Assessment and Plan (1) Pneumonia: Qualifiers: Laterality: right Lung location: middle lobe of lung Pneumonia type: due to unspecified organism Qualified Code(s): J18.9 - Pneumonia, unspecified organism Code(s): J18.9 - Pneumonia, unspecified organism Status: Acute Assessment and Plan: * continue PO AB * CT chest showed moderate emphysema and small pleural effusion. Lasix resumed. * Procal negative * Leukocytosis of 17 on admission, WBC remained stable * now on room air (2) Acute hypoxic respiratory failure: Code(s): J96.01 - Acute respiratory failure with hypoxia Status: Resolved (3) Profound anemia: Code(s): D64.9 - Anemia, unspecified Status: Acute Assessment and Plan: * s/p 2 units PRBC, H&H rebounded to 10.5/31.6 from 6.9 prior and is now stable * occult stool negative * Continue PPI BID * Hold xarelto until 11/12 * iron panel: iron 25, TIBC 259, iron sat 10%. on oral supplementation (4) Sepsis: Qualifiers: Sepsis type: sepsis due to unspecified organism Sepsis acute organ dysfunction status: with acute organ dysfunction Severe sepsis acute organ dysfunction type: acute respiratory failure Acute respiratory failure type: with hypoxia Severe sepsis shock status: without septic shock Qualified Code(s): A41.9 - Sepsis, unspecified organism; R65.20 - Severe sepsis without septic shock; J96.01 - Acute respiratory failure with hypoxia Code(s): A41.9 - Sepsis, unspecified organism Status: Acute Assessment and Plan: * previously met sepsis criteria with tachycardia, tachypnea and leukocytosis in the setting of pneumonia. * blood cultures pending * transition to PO AB * UA culture negative (5) COPD (chronic obstructive pulmonary disease): Qualifiers: COPD type: COPD with acute lower respiratory infection Qualified Code(s): J44.0 - Chronic obstructive pulmonary disease with (acute) lower respiratory infection Code(s): J44.9 - Chronic obstructive pulmonary disease, unspecified Status: Chronic Assessment and Plan: * continue scheduled nebulizer treatments (6) CHF (congestive heart failure): Qualifiers: Heart failure type: right-sided Heart failure chronicity: chronic Qualified Code(s): I50.812 - Chronic right heart failure Code(s): I50.9 - Heart failure, unspecified Status: Chronic Assessment and Plan: * strict I&O, daily weights * Lasix resumed * continue to monitor * continue patient's home Coreg, baby aspirin, LEOBARDO-inhibitor and statin * BP dropped to 90's today after PT therapy and symptomatic with weakness. * 250 ml bolus given, careful to monitor for fluid overload * Repeat EKG ordered (7) Protein calorie malnutrition: Qualifiers: Protein-calorie malnutrition severity: unspecified severity Qualified Code(s): E46 - Unspecified protein-calorie malnutrition Code(s): E46 - Unspecified protein-calorie malnutrition Status: Chronic Assessment and Plan: * dietary consulted, supplements ordered (8) Elevated troponin: Code(s): R77.8 - Other specified abnormalities of plasma proteins Status: Acute Assessment and Plan: Elevated on admission 0.056->0.077->0.096 * repeating trop today * no chest pain * EKG with no concerns for T wave changes Plan Feeding: heart healthy with supplements Analgesia:Tylenol Thromboembolic prophylaxis: SCD--xarelto on hold for down trending H/H Ulcer prophyl
--- NOTE | 2023-11-07 14:03 | PM.IMPN ---
Progress Note: A&P Assessment and Plan (1) Pneumonia: Qualifiers: Laterality: right Lung location: middle lobe of lung Pneumonia type: due to unspecified organism Qualified Code(s): J18.9 - Pneumonia, unspecified organism Code(s): J18.9 - Pneumonia, unspecified organism Status: Acute Assessment and Plan: continue PO AB CT chest showed moderate emphysema and small pleural effusion. Lasix resumed. Procal negative Leukocytosis of 17 on admission, WBC remained stable now on room air (2) Acute hypoxic respiratory failure: Code(s): J96.01 - Acute respiratory failure with hypoxia Status: Resolved (3) Profound anemia: Code(s): D64.9 - Anemia, unspecified Status: Acute Assessment and Plan: s/p 2 units PRBC, H&H rebounded to 10.5/31.6 from 6.9 prior and is now stable occult stool negative Continue PPI BID Hold xarelto until 11/12 iron panel: iron 25, TIBC 259, iron sat 10%. on oral supplementation (4) Sepsis: Qualifiers: Sepsis type: sepsis due to unspecified organism Sepsis acute organ dysfunction status: with acute organ dysfunction Severe sepsis acute organ dysfunction type: acute respiratory failure Acute respiratory failure type: with hypoxia Severe sepsis shock status: without septic shock Qualified Code(s): A41.9 - Sepsis, unspecified organism; R65.20 - Severe sepsis without septic shock; J96.01 - Acute respiratory failure with hypoxia Code(s): A41.9 - Sepsis, unspecified organism Status: Acute Assessment and Plan: previously met sepsis criteria with tachycardia, tachypnea and leukocytosis in the setting of pneumonia. blood cultures pending transition to PO AB UA culture negative (5) COPD (chronic obstructive pulmonary disease): Qualifiers: COPD type: COPD with acute lower respiratory infection Qualified Code(s): J44.0 - Chronic obstructive pulmonary disease with (acute) lower respiratory infection Code(s): J44.9 - Chronic obstructive pulmonary disease, unspecified Status: Chronic Assessment and Plan: continue scheduled nebulizer treatments (6) CHF (congestive heart failure): Qualifiers: Heart failure type: right-sided Heart failure chronicity: chronic Qualified Code(s): I50.812 - Chronic right heart failure Code(s): I50.9 - Heart failure, unspecified Status: Chronic Assessment and Plan: strict I&O, daily weights Lasix resumed continue to monitor continue patient's home Coreg, baby aspirin, LEOBARDO-inhibitor and statin BP dropped to 90's today after PT therapy and symptomatic with weakness. 250 ml bolus given, careful to monitor for fluid overload Repeat EKG ordered (7) Protein calorie malnutrition: Qualifiers: Protein-calorie malnutrition severity: unspecified severity Qualified Code(s): E46 - Unspecified protein-calorie malnutrition Code(s): E46 - Unspecified protein-calorie malnutrition Status: Chronic Assessment and Plan: dietary consulted, supplements ordered (8) Elevated troponin: Code(s): R77.8 - Other specified abnormalities of plasma proteins Status: Acute Assessment and Plan: Elevated on admission 0.056->0.077->0.096 repeating trop today no chest pain EKG with no concerns for T wave changes Plan Feeding: heart healthy with supplements Analgesia:Tylenol Thromboembolic prophylaxis: SCD--xarelto on hold for down trending H/H Ulcer prophylaxis: PPI BID Glycemic control: NA Bowel regimen: miralax prn Lines: PIV Antibiotics: Augmentin, Azithro Disposition: plan to d/c tomorrow, will need medical assist Subjective Date/time seen: 11/07/23 14:03 Interval history: Patient seen in bed on now on room air and does not appear in acute distress. His is at the bedside this morning. He is reporting some mild right lower quadrant pain this morn
[2023-11-07] MEDS: DONEPEZIL HCL 10 MG TABLET PO (22:11)
[2023-11-08] VITALS (15 sets, daily range): BP systolic 91–144; BP diastolic 57–68; PULSE 68–85; RESP 16–18; TEMP 36.5–36.8; O2SAT 97–100
[2023-11-08] MEDS: ALBUTEROL SULFATE NEB 2.5 MG/3 ML INH 5 MG INHALATION ×3 (02:10→20:35)
[2023-11-08] MEDS: IPRATROPIUM BR 0.02% INH SOLN 0.5 MG/2.5 ML VIAL INHALATION ×3 (02:10→20:36)
[2023-11-08 05:48] LABS: Hematocrit 36.6 % (42.0-52.0); Hemoglobin 11.7 g/dL (14.0-18.0); Mean Corpuscular Hemoglobin 30.9 pg (26-34); Mean Corpuscular Volume 96.6 fl (80-100); Mean Platelet Volume 8.6 fl (7.4-10.4); Platelet Count Result 473 k/mm3 (150-375); Red Blood Count 3.79 M/mm3 (4.6-6.20); White Blood Count 11.2 K/mm3 (4.5-10.0)
[2023-11-08 06:09] LABS: Anion Gap 4 mmol/L (8-16); Blood Urea Nitrogen 15 mg/dL (9-20); Calcium 9.4 mg/dL (8.4-10.2); Carbon Dioxide 26 mmol/L (22-30); Chloride 105 mmol/L (98-107); Estimated CRCL calculation 50 ml/min; Estimated Glomerular Filt Rate > 60; Glucose 88 mg/dL (65-110); Potassium 3.8 mmol/L (3.4-5.0); Sodium 135 mmol/L (137-145)
[2023-11-08 07:51] LABS: Basophils Absolute Auto 0.1 K/mm3 (0.0-0.1); Basophils Percent Auto 0.5 % (0.2-1.2); Eosinophils Absolute Auto 0.2 K/mm3 (0-0.3); Eosinophils Percent Auto 1.5 % (0-4.4); Hematocrit 37.4 % (42.0-52.0); Hemoglobin 11.7 g/dL (14.0-18.0); Immature Granulocyte Absolute 0.07 K/mm3 (0.00-0.031); Immature Granulocyte Percent A 0.6 % (0-0.5); Lymphocytes Absolute Auto 1.22 K/mm3 (0.9-3.2); Lymphocytes Percent Auto 11.1 % (18.3-44.2); Mean Corpuscular HGB Conc 31.3 g/dl (32-36); Mean Corpuscular Hemoglobin 30.6 pg (26-34); Mean Corpuscular Volume 97.9 fl (80-100); Mean Platelet Volume 9.1 fl (7.4-10.4); Monocytes Absolute Auto 1.4 K/mm3 (0.1-0.6); Monocytes Percent Auto 12.5 % (2.6-8.5); Neutrophils Absolute Auto 8.1 K/mm3 (1.3-6.7); Neutrophils Percent Auto 73.8 % (45.5-73.1); Platelet Count Result 503 k/mm3 (150-375); Red Blood Count 3.82 M/mm3 (4.6-6.20)
[2023-11-08] MEDS: carvediloL 6.25 MG TABLET PO ×2 (09:40→20:21)
[2023-11-08] MEDS: FERROUS SULFATE 325 MG TABLET DR BY MOUTH ×2 (09:40→17:05)
[2023-11-08] MEDS: CHOLECALCIFEROL 1,000 UNITS TABLET 5000 UNITS PO (09:40)
[2023-11-08] MEDS: PANTOPRAZOLE 40 MG TABLET PO ×2 (09:41→20:21)
[2023-11-08] MEDS: ASPIRIN 81 MG ENTERIC TABLET PO (09:41)
[2023-11-08] MEDS: AMOXICILLIN/CLAVULANATE K 875-125 MG TAB 1 TABLET PO ×2 (09:41→20:21)
[2023-11-08] MEDS: SIMVASTATIN 20 MG TABLET 40 MG PO (09:42)
[2023-11-08] MEDS: FLUTICASONE/UMECLIDIN/VILANTER 100-62.5-25 MCG ELLIPTA 1 PUFF INHALATION (12:56)
--- NOTE | 2023-11-08 13:42 | P.PNIM_ITS ---
Progress Note: A&P Assessment and Plan (1) Pneumonia: Qualifiers: Laterality: right Lung location: middle lobe of lung Pneumonia type: due to unspecified organism Qualified Code(s): J18.9 - Pneumonia, unspecified organism Code(s): J18.9 - Pneumonia, unspecified organism Status: Acute Assessment and Plan: * continue PO AB * CT chest showed moderate emphysema and small pleural effusion. Lasix resumed. * Procal negative * Leukocytosis of 17 on admission, WBC slightly elevated above 11 this am * repeat CXR today * now on room air (2) Acute hypoxic respiratory failure: Code(s): J96.01 - Acute respiratory failure with hypoxia Status: Resolved (3) Profound anemia: Code(s): D64.9 - Anemia, unspecified Status: Acute Assessment and Plan: * s/p 2 units PRBC, H&H rebounded to 10.5/31.6 from 6.9 prior and is now stable * occult stool negative * Continue PPI BID * Hold xarelto until 11/12 * iron panel: iron 25, TIBC 259, iron sat 10%. on oral supplementation (4) Sepsis: Qualifiers: Sepsis type: sepsis due to unspecified organism Sepsis acute organ dysfunction status: with acute organ dysfunction Severe sepsis acute organ dysfunction type: acute respiratory failure Acute respiratory failure type: with hypoxia Severe sepsis shock status: without septic shock Qualified Code(s): A41.9 - Sepsis, unspecified organism; R65.20 - Severe sepsis without septic shock; J96.01 - Acute respiratory failure with hypoxia Code(s): A41.9 - Sepsis, unspecified organism Status: Acute Assessment and Plan: * previously met sepsis criteria with tachycardia, tachypnea and leukocytosis in the setting of pneumonia. * blood cultures negative * transition to PO AB * UA culture negative (5) COPD (chronic obstructive pulmonary disease): Qualifiers: COPD type: COPD with acute lower respiratory infection Qualified Code(s): J44.0 - Chronic obstructive pulmonary disease with (acute) lower respiratory infection Code(s): J44.9 - Chronic obstructive pulmonary disease, unspecified Status: Chronic Assessment and Plan: * continue scheduled nebulizer treatments (6) CHF (congestive heart failure): Qualifiers: Heart failure type: right-sided Heart failure chronicity: chronic Qualified Code(s): I50.812 - Chronic right heart failure Code(s): I50.9 - Heart failure, unspecified Status: Chronic Assessment and Plan: * strict I&O, daily weights * Lasix resumed * continue to monitor * continue patient's home Coreg, baby aspirin, LEOBARDO-inhibitor and statin * BP dropped to 90's yesterday after PT therapy and symptomatic with weakness. * Repeat EKG essentially unchanged * orthostatics positive, FRANKLYN hose ordered * will hold anti-hypertensives as needed (7) Protein calorie malnutrition: Qualifiers: Protein-calorie malnutrition severity: unspecified severity Qualified Code(s): E46 - Unspecified protein-calorie malnutrition Code(s): E46 - Unspecified protein-calorie malnutrition Status: Chronic Assessment and Plan: * dietary consulted, supplements ordered (8) Elevated troponin: Code(s): R77.8 - Other specified abnormalities of plasma proteins Status: Acute Assessment and Plan: Elevated on admission 0.056->0.077->0.096 * repeating trop normal * no chest pain * EKG with no concerns for T wave changes Plan Feeding: heart healthy with supplements Analgesia:Tylenol
--- NOTE | 2023-11-08 13:42 | PM.IMPN ---
Progress Note: A&P Assessment and Plan (1) Pneumonia: Qualifiers: Laterality: right Lung location: middle lobe of lung Pneumonia type: due to unspecified organism Qualified Code(s): J18.9 - Pneumonia, unspecified organism Code(s): J18.9 - Pneumonia, unspecified organism Status: Acute Assessment and Plan: continue PO AB CT chest showed moderate emphysema and small pleural effusion. Lasix resumed. Procal negative Leukocytosis of 17 on admission, WBC slightly elevated above 11 this am repeat CXR today now on room air (2) Acute hypoxic respiratory failure: Code(s): J96.01 - Acute respiratory failure with hypoxia Status: Resolved (3) Profound anemia: Code(s): D64.9 - Anemia, unspecified Status: Acute Assessment and Plan: s/p 2 units PRBC, H&H rebounded to 10.5/31.6 from 6.9 prior and is now stable occult stool negative Continue PPI BID Hold xarelto until 11/12 iron panel: iron 25, TIBC 259, iron sat 10%. on oral supplementation (4) Sepsis: Qualifiers: Sepsis type: sepsis due to unspecified organism Sepsis acute organ dysfunction status: with acute organ dysfunction Severe sepsis acute organ dysfunction type: acute respiratory failure Acute respiratory failure type: with hypoxia Severe sepsis shock status: without septic shock Qualified Code(s): A41.9 - Sepsis, unspecified organism; R65.20 - Severe sepsis without septic shock; J96.01 - Acute respiratory failure with hypoxia Code(s): A41.9 - Sepsis, unspecified organism Status: Acute Assessment and Plan: previously met sepsis criteria with tachycardia, tachypnea and leukocytosis in the setting of pneumonia. blood cultures negative transition to PO AB UA culture negative (5) COPD (chronic obstructive pulmonary disease): Qualifiers: COPD type: COPD with acute lower respiratory infection Qualified Code(s): J44.0 - Chronic obstructive pulmonary disease with (acute) lower respiratory infection Code(s): J44.9 - Chronic obstructive pulmonary disease, unspecified Status: Chronic Assessment and Plan: continue scheduled nebulizer treatments (6) CHF (congestive heart failure): Qualifiers: Heart failure type: right-sided Heart failure chronicity: chronic Qualified Code(s): I50.812 - Chronic right heart failure Code(s): I50.9 - Heart failure, unspecified Status: Chronic Assessment and Plan: strict I&O, daily weights Lasix resumed continue to monitor continue patient's home Coreg, baby aspirin, LEOBARDO-inhibitor and statin BP dropped to 90's yesterday after PT therapy and symptomatic with weakness. Repeat EKG essentially unchanged orthostatics positive, FRANKLYN maravilla ordered will hold anti-hypertensives as needed (7) Protein calorie malnutrition: Qualifiers: Protein-calorie malnutrition severity: unspecified severity Qualified Code(s): E46 - Unspecified protein-calorie malnutrition Code(s): E46 - Unspecified protein-calorie malnutrition Status: Chronic Assessment and Plan: dietary consulted, supplements ordered (8) Elevated troponin: Code(s): R77.8 - Other specified abnormalities of plasma proteins Status: Acute Assessment and Plan: Elevated on admission 0.056->0.077->0.096 repeating trop normal no chest pain EKG with no concerns for T wave changes Plan Feeding: heart healthy with supplements Analgesia:Tylenol Thromboembolic prophylaxis: SCD--xarelto on hold for down trending H/H Ulcer prophylaxis: PPI BID Glycemic control: NA Bowel regimen: miralax prn Lines: PIV Antibiotics: Augmentin, Azithro Disposition: plan to d/c when stable, hope for tomorrow, will need medical assist Subjective Date/time seen: 11/08/23 13:42 Interval history: Patient sitting up in chair on room air and does not appear in acute distress
[2023-11-08] MEDS: DONEPEZIL HCL 10 MG TABLET PO (20:21)
[2023-11-09] VITALS (11 sets, daily range): BP systolic 92–146; BP diastolic 57–71; PULSE 60–100; RESP 15–18; TEMP 36.4; O2SAT 95–100
[2023-11-09] MEDS: ALBUTEROL SULFATE NEB 2.5 MG/3 ML INH 5 MG INHALATION ×3 (03:04→15:06)
[2023-11-09] MEDS: IPRATROPIUM BR 0.02% INH SOLN 0.5 MG/2.5 ML VIAL INHALATION ×3 (03:05→15:06)
[2023-11-09] MEDS: FLUTICASONE/UMECLIDIN/VILANTER 100-62.5-25 MCG ELLIPTA 1 PUFF INHALATION (08:15)
[2023-11-09 08:19] LABS: Basophils Absolute Auto 0.1 K/mm3 (0.0-0.1); Basophils Percent Auto 0.9 % (0.2-1.2); Eosinophils Absolute Auto 0.2 K/mm3 (0-0.3); Eosinophils Percent Auto 2.2 % (0-4.4); Hematocrit 39.3 % (42.0-52.0); Hemoglobin 12.2 g/dL (14.0-18.0); Immature Granulocyte Absolute 0.08 K/mm3 (0.00-0.031); Lymphocytes Absolute Auto 1.23 K/mm3 (0.9-3.2); Lymphocytes Percent Auto 15.7 % (18.3-44.2); Mean Corpuscular Hemoglobin 30.8 pg (26-34); Mean Corpuscular Volume 99.2 fl (80-100); Mean Platelet Volume 8.8 fl (7.4-10.4); Monocytes Absolute Auto 1.2 K/mm3 (0.1-0.6); Monocytes Percent Auto 14.8 % (2.6-8.5); Neutrophils Absolute Auto 5.1 K/mm3 (1.3-6.7); Neutrophils Percent Auto 65.4 % (45.5-73.1); Platelet Count Result 444 k/mm3 (150-375); Red Blood Count 3.96 M/mm3 (4.6-6.20); Red Cell Distribution Width 15.9 % (11.5-14.5); White Blood Count 7.8 K/mm3 (4.5-10.0)
[2023-11-09] MEDS: AMOXICILLIN/CLAVULANATE K 875-125 MG TAB 1 TABLET PO (09:19)
[2023-11-09] MEDS: ASPIRIN 81 MG ENTERIC TABLET PO (09:20)
[2023-11-09] MEDS: SIMVASTATIN 20 MG TABLET 40 MG PO (09:20)
[2023-11-09] MEDS: carvediloL 6.25 MG TABLET PO (09:20)
[2023-11-09] MEDS: CHOLECALCIFEROL 1,000 UNITS TABLET 5000 UNITS PO (09:20)
[2023-11-09] MEDS: FERROUS SULFATE 325 MG TABLET DR BY MOUTH (09:20)
[2023-11-09] MEDS: FUROSEMIDE 20 MG TABLET PO (09:20)
[2023-11-09] MEDS: ramipriL 5 MG CAPSULE PO (09:20)
[2023-11-09] MEDS: PANTOPRAZOLE 40 MG TABLET PO (09:24)
[2023-11-09 09:44] LABS: Anion Gap 7 mmol/L (8-16); Blood Urea Nitrogen 16 mg/dL (9-20); Calcium 10.1 mg/dL (8.4-10.2); Carbon Dioxide 25 mmol/L (22-30); Chloride 105 mmol/L (98-107); Estimated CRCL calculation 65 ml/min; Estimated Glomerular Filt Rate > 60; Glucose 81 mg/dL (65-110); Potassium 4.4 mmol/L (3.4-5.0); Sodium 137 mmol/L (137-145)
--- NOTE | 2023-11-09 13:04 | P.DS_ITS ---
DS: Admitting Diagnosis Discharge Date 11/09/23 Admitting Diagnosis syncope DS: Discharge Diagnosis Discharge Diagnosis (1) Pneumonia: Qualifiers: Laterality: right Lung location: middle lobe of lung Pneumonia type: due to unspecified organism Qualified Code(s): J18.9 - Pneumonia, unspecified organism Code(s): J18.9 - Pneumonia, unspecified organism Status: Resolved Assessment and Plan: * completed full course of AB today * Procal negative * Leukocytosis resolved * repeat CXR is clear of infiltrates * now on room air (2) Acute hypoxic respiratory failure: Code(s): J96.01 - Acute respiratory failure with hypoxia Status: Resolved (3) Profound anemia: Code(s): D64.9 - Anemia, unspecified Status: Acute Assessment and Plan: * s/p 2 units PRBC, H&H rebounded and has remained stable * occult stool negative * Continue PPI BID * Hold xarelto until 11/12 * iron panel: iron 25, TIBC 259, iron sat 10%. on oral supplementation (4) Sepsis: Qualifiers: Acute respiratory failure type: with hypoxia Sepsis acute organ dysfunction status: with acute organ dysfunction Sepsis type: sepsis due to unspecified organism Severe sepsis acute organ dysfunction type: acute respiratory failure Severe sepsis shock status: without septic shock Qualified Code(s): A41.9 - Sepsis, unspecified organism; R65.20 - Severe sepsis without septic shock; J96.01 - Acute respiratory failure with hypoxia Code(s): A41.9 - Sepsis, unspecified organism Status: Ruled-out Assessment and Plan: * previously met sepsis criteria with tachycardia, tachypnea and leukocytosis in the setting of pneumonia. * blood cultures negative * transition to PO AB * UA culture negative (5) COPD (chronic obstructive pulmonary disease): Qualifiers: COPD type: COPD with acute lower respiratory infection Qualified Code(s): J44.0 - Chronic obstructive pulmonary disease with (acute) lower respiratory infection Code(s): J44.9 - Chronic obstructive pulmonary disease, unspecified Status: Chronic Assessment and Plan: * continue scheduled nebulizer treatments (6) CHF (congestive heart failure): Qualifiers: Heart failure chronicity: chronic Heart failure type: right-sided Qualified Code(s): I50.812 - Chronic right heart failure Code(s): I50.9 - Heart failure, unspecified Status: Chronic Assessment and Plan: * strict I&O, daily weights * Lasix resumed * continue patient's home Coreg, baby aspirin, LEOBARDO-inhibitor and statin * Repeat EKG essentially unchanged * orthostatics positive, FRANKLYN maravilla ordered, PT working with him daily and will have home health * will resume antihypertensives at d/c, closely monitor (7) Protein calorie malnutrition: Qualifiers: Protein-calorie malnutrition severity: unspecified severity Qualified Code(s): E46 - Unspecified protein-calorie malnutrition Code(s): E46 - Unspecified protein-calorie malnutrition Status: Chronic Assessment and Plan: * dietary consulted, supplements recommended * did not like ensure, but drinks Boost at home. * TID supplementation, aim to eat small frequent meals for weight gain (8) Elevated troponin: Code(s): R77.8 - Other specified abnormalities of plasma proteins Status: Acute Assessment and Plan: Elevated on admission 0.056->0.077->0.096 * repeating trop normal * no chest pain * EKG with no concerns for T wave marino
--- NOTE | 2023-11-09 13:04 | PM.DS ---
DS: Admitting Diagnosis Discharge Date 11/09/23 Admitting Diagnosis syncope DS: Discharge Diagnosis Discharge Diagnosis (1) Pneumonia: Qualifiers: Laterality: right Lung location: middle lobe of lung Pneumonia type: due to unspecified organism Qualified Code(s): J18.9 - Pneumonia, unspecified organism Code(s): J18.9 - Pneumonia, unspecified organism Status: Resolved Assessment and Plan: completed full course of AB today Procal negative Leukocytosis resolved repeat CXR is clear of infiltrates now on room air (2) Acute hypoxic respiratory failure: Code(s): J96.01 - Acute respiratory failure with hypoxia Status: Resolved (3) Profound anemia: Code(s): D64.9 - Anemia, unspecified Status: Acute Assessment and Plan: s/p 2 units PRBC, H&H rebounded and has remained stable occult stool negative Continue PPI BID Hold xarelto until 11/12 iron panel: iron 25, TIBC 259, iron sat 10%. on oral supplementation (4) Sepsis: Qualifiers: Acute respiratory failure type: with hypoxia Sepsis acute organ dysfunction status: with acute organ dysfunction Sepsis type: sepsis due to unspecified organism Severe sepsis acute organ dysfunction type: acute respiratory failure Severe sepsis shock status: without septic shock Qualified Code(s): A41.9 - Sepsis, unspecified organism; R65.20 - Severe sepsis without septic shock; J96.01 - Acute respiratory failure with hypoxia Code(s): A41.9 - Sepsis, unspecified organism Status: Ruled-out Assessment and Plan: previously met sepsis criteria with tachycardia, tachypnea and leukocytosis in the setting of pneumonia. blood cultures negative transition to PO AB UA culture negative (5) COPD (chronic obstructive pulmonary disease): Qualifiers: COPD type: COPD with acute lower respiratory infection Qualified Code(s): J44.0 - Chronic obstructive pulmonary disease with (acute) lower respiratory infection Code(s): J44.9 - Chronic obstructive pulmonary disease, unspecified Status: Chronic Assessment and Plan: continue scheduled nebulizer treatments (6) CHF (congestive heart failure): Qualifiers: Heart failure chronicity: chronic Heart failure type: right-sided Qualified Code(s): I50.812 - Chronic right heart failure Code(s): I50.9 - Heart failure, unspecified Status: Chronic Assessment and Plan: strict I&O, daily weights Lasix resumed continue patient's home Coreg, baby aspirin, LEOBARDO-inhibitor and statin Repeat EKG essentially unchanged orthostatics positive, FRANKLYN maravilla ordered, PT working with him daily and will have home health will resume antihypertensives at d/c, closely monitor (7) Protein calorie malnutrition: Qualifiers: Protein-calorie malnutrition severity: unspecified severity Qualified Code(s): E46 - Unspecified protein-calorie malnutrition Code(s): E46 - Unspecified protein-calorie malnutrition Status: Chronic Assessment and Plan: dietary consulted, supplements recommended did not like ensure, but drinks Boost at home. TID supplementation, aim to eat small frequent meals for weight gain (8) Elevated troponin: Code(s): R77.8 - Other specified abnormalities of plasma proteins Status: Acute Assessment and Plan: Elevated on admission 0.056->0.077->0.096 repeating trop normal no chest pain EKG with no concerns for T wave changes Plan Disposition: d/c home with home health, will need medical assist DS: Summary Hospital Course Hospital Course: From previous HPI in chart: Patient is a 79 year old male with PMH of COPD, dementia, multivessel coronary artery disease, paroxysmal atrial fibrillation and chronic continued tobacco use who presented to the ER with difficulty breathing. Source of information is from past medical records and danni
== END 2023-11-09 16:45 | disposition home health service (06) | DRG 871 ==
LOC: ANHED 19:39 → ANHIMU 20:39 → ANH2MED 11-04 20:12
PROVIDERS: Internal Medicine; Internal Medicine Gastroenterology; Nurse Practitioner Acute Care; Student in an Organized Health Care Education/Training Program; Admitting Provider Internal Medicine; Emergency Provider Nurse Practitioner Family; PCP Internal Medicine; Visit Provider Nurse Practitioner
PROC: 0DJ08ZZ Inspection of Upper Intestinal Tract, Via Natural or Artificial Opening Endoscopic (ICD-10-PCS; CPT 43235; principal; 2023-11-05 14:30)
DX: E43 Unspecified severe protein-calorie malnutrition; A41.9 Sepsis, unspecified organism; J96.01 Acute respiratory failure with hypoxia; J18.9 Pneumonia, unspecified organism; K31.811 Angiodysplasia of stomach and duodenum with bleeding; Z68.1 Body mass index [BMI] 19.9 or less, adult; L02.91 Cutaneous abscess, unspecified; R65.20 Severe sepsis without septic shock; D64.9 Anemia, unspecified; E55.9 Vitamin D deficiency, unspecified; F03.90 Unspecified dementia, unspecified severity, without behavioral disturbance, psychotic disturbance, mood disturbance, and anxiety; F17.210 Nicotine dependence, cigarettes, uncomplicated; I11.0 Hypertensive heart disease with heart failure; I50.812 Chronic right heart failure; I25.10 Atherosclerotic heart disease of native coronary artery without angina pectoris; I48.0 Paroxysmal atrial fibrillation; I95.1 Orthostatic hypotension; I73.9 Peripheral vascular disease, unspecified; J43.9 Emphysema, unspecified; K21.9 Gastro-esophageal reflux disease without esophagitis; K44.9 Diaphragmatic hernia without obstruction or gangrene; R77.8 Other specified abnormalities of plasma proteins; Z20.822 Contact with and (suspected) exposure to COVID-19; Z95.5 Presence of coronary angioplasty implant and graft; Z79.01 Long term (current) use of anticoagulants; Z66 Do not resuscitate; Z79.82 Long term (current) use of aspirin
CPT/HCPCS: 36415; 36430; 36600; 71045; 71260; 80048; 80053; 81001; 82274; 82607; 82746; 82805; 83540; 83550; 83605; 83735; 83880; 84145; 84484; 85014; 85018; 85025; 85027; 85380; 85610; 85730; 86850; 86900; 86901; 86923; 87040; 87086; 87637; 93005; 94640; 97110; 97161; 97165; 97530; 97535; A9270; J0456; J0696; J2704; J7030; J7040; J7050; J7120; P9016; Q9967